=== PATIENT | male | born 2000 | race Caucasian/White ===

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

== ENCOUNTER 2019-08-04 12:37 | Emergency (ER) | payer OTHER ==
[2019-08-04 14:35] LABS: ABS Lymphocytes 1.2 10^3/ul (1.0-4.8); ABS Monocytes 0.7 10^3/ul (0-0.8); ABS Neutrophils 9.1 10^3/ul (1.5-7.7); Eosinophil % 0.3 %; Hematocrit 44 % (42-52); Hemoglobin 14.9 g/dL (14.0-18.0); Lymphocyte % 11.1 %; Mean Corpuscular HGB Conc 34 g/dL (31-36); Mean Corpuscular Hemoglobin 30 pg (27-31); Mean Corpuscular Volume 89 fL (80-94); Mean Platelet Volume 7.5 fL (7.4-10.4); Platelet Count 312 10^3/uL (150-450); Red Blood Count 4.94 10^6 /uL (4.18-5.48); Red Cell Distribution Width 13 % (10-15); White Blood Count 11.1 10^3/uL (3.5-10.8)
[2019-08-04 14:52] LABS: ALT 29 U/L (7-52); AST 28 U/L (13-39); Albumin 5.1 g/dL (3.2-5.2); Albumin/Globulin Ratio 1.8 (1-3); Alkaline Phosphatase 89 U/L (34-104); Anion Gap 7 mmol/L (2-11); BUN/Creatinine Ratio 15.9 (8-20); Blood Urea Nitrogen 14 mg/dL (6-24); C Reactive Protein < 1.00 mg/L (<8.01); CO2 Carbon Dioxide 26 mmol/L (22-32); Calcium 10.2 mg/dL (8.6-10.3); Chloride 103 mmol/L (101-111); EGFR African American 133.6 (>60); EGFR Non-African American 110.4 (>60); Globulin 2.8 g/dL (2-4); Glucose 105 mg/dL (70-100); Potassium 4.1 mmol/L (3.5-5.0); Sodium 136 mmol/L (135-145); Total Protein 7.9 g/dL (6.4-8.9)
[2019-08-04] MEDS ORDERED: Ketorolac INJ* 30 MG/ML 1 ML VIAL IV PUSH ONE (14:52)
--- NOTE | 2019-08-04 14:52 | ED ---
Abdominal Pain/Male - HPI Summary HPI Summary: This patient is a 19 year old male presenting to [facility] with RLQ and umbilical abdominal pain. He reports nausea earlier but it has resolved. He describes the pain as sharp. He states it is intermittent every 10 minutes. He states eating had no effect on the pain. He states the pain feels a lot worse when he turns onto either of his sides. He rates his pain 7/10 in severity. He states he has never had abdominal surgery. The patient had Tylenol and Ibuprofen this morning. - History of Current Complaint Chief Complaint: EDAbdPain Stated Complaint: LOWER RIGHT ABD PAIN Time Seen by Provider: 08/04/19 14:44 Hx Obtained From: Patient Onset/Duration: Lasting Hours Pain Intensity: 7 Pain Scale Used: 0-10 Numeric Location: Discrete At: RLQ, Umbilical - Allergies/Home Medications Allergies/Adverse Reactions: Allergies Allergy/AdvReac Type Severity Reaction Status Date / Time No Known Allergies Allergy Verified 08/04/19 12:43 PMH/Surg Hx/FS Hx/Imm Hx Endocrine/Hematology History: Denies: Hx Diabetes Cardiovascular History: Denies: Hx Coronary Artery Disease Infectious Disease History: No Infectious Disease History: Denies: Traveled Outside the [place] in Last 30 Days - Family History Known Family History: Positive: Diabetes - Social History Alcohol Use: None Substance Use Type: Reports: None Smoking Status (MU): Never Smoked Tobacco Review of Systems Negative: Fever Positive: Abdominal Pain, Nausea All Other Systems Reviewed And Are Negative: Yes Physical Exam - Summary Physical Exam Summary: Appearance: The patient is well-nourished in no acute distress and in no acute pain. Skin: The skin is warm and dry and skin color reflects adequate perfusion. HEENT: The head is normocephalic and atraumatic. The pupils are equal and reactive. The conjunctivae are clear and without drainage. Nares are patent and without drainage. Mouth reveals moist mucous membranes and the throat is without erythema and exudate. The external ears are intact. The ear canals are patent and without drainage. The tympanic membranes are intact. Neck: The neck is supple with full range of motion and non-tender. There are no carotid bruits. There is no neck vein distension. Respiratory: Chest is non-tender. Lungs are clear to auscultation and breath sounds are symmetrical and equal. Cardiovascular: Heart is regular rate and rhythm. There is no murmur or rub auscultated. There is no peripheral edema and pulses are symmetrical and equal. Abdomen: The abdomen is soft and non-tender. There are normal bowel sounds heard in all four quadrants and there is no organomegaly palpated. There is mild distension, tympanitic. Musculoskeletal: There is no back tenderness noted. Extremities are non-tender with full range of motion. There is good capillary refill. There is no peripheral edema or calf tenderness elicited. Neurological: Patient is alert and oriented to person, place and time. The patient has symmetrical motor strength in all four extremities. Cranial nerves are grossly intact. Deep tendon reflexes are symmetrical and equal in all four extremities. Psychiatric: The patient has an appropriate affect and does not exhibit any anxiety or depression. Triage Information Reviewed: Yes Vital Signs On Initial Exam: Initial Vitals Temp Pulse Resp BP Pulse Ox 98.9 F 92 19 136/74 97 08/04/19 12:38 08/04/19 12:38 08/04/19 12:38 08/04/19 12:38 08/04/19 12:38 Vital Signs Reviewed: Yes Procedures - Sedation Patient Received Moderate/Deep Sedation with Procedure: No Diagnostics - Vital Signs Vital Signs Temp Pulse Resp BP Pulse Ox 08/04/19 14:23 98.9 F 71 16 108/78 100 08/04/19 12:38 98.9 F 92 19 136/74 97 - Laboratory Lab Results: Lab Results 08/04/19 Range/Units 14:26 WBC 11.1 H (3.5-10.8) 10^3/uL RBC 4.94 (4.18-5.48) 10^6 /uL Hgb 14.9 (14.0-18.0) g/dL Hct 44 (42-52) % MCV 89 (80-94) fL MCH 30 (27-31) pg MCHC 34 (31-36) g/dL RDW 13 (10-15) % Plt Count 312 (150-450) 10^3/uL MPV 7.5 (7.4-10.4) fL Neut % (Auto) 82.2 % Lymph % (Auto) 11.1 % Rosebud % (Auto) 6.0 % Eos % (Auto) 0.3 % Baso % (Auto) 0.4 % Absolute Neuts (auto) 9.1 H (1.5-7.7) 10^3/ul Absolute Lymphs (auto) 1.2 (1.0-4.8) 10^3/ul Absolute Monos (auto) 0.7 (0-0.8) 10^3/ul Absolute Eos (auto) 0.0 (0-0.6) 10^3/ul Absolute Basos (auto) 0.0 (0-0.2) 10^3/ul Absolute Nucleated RBC 0.0 10^3/ul Nucleated RBC % 0.0 Result Diagrams: 08/04/19 14:26 08/04/19 14:26 Lab Statement: Any lab studies that have been ordered have been reviewed, and results considered in the medical decision making process. - Radiology Abdomen XR Radiology Interpretation Completed By: Radiologist Summary of Radiographic Findings: Extensive gaseous distension of the colon without dilatation. Large amount of stool within the distal colon. ED Provider has reviewed this report. - CT Abd/Pel CT Interpretation Completed By: Radiologist Summary of CT Findings: There is diffuse gaseous distension of the colon with a large amount of stool in the distal colon. ED Provider has reviewed this report. Abdominal Pain Male Course/Dx - Course Course Of Treatment: Mr. Redman was found to be constipated with air in the colon. There is no sign of obstruction. Unfortunately had to get a CT scan as the plain film was equivocal. I recommended laxatives and we would try enemas if laxatives are not effective. He was sent home with mag citrate. - Diagnoses Provider Diagnoses: Constipation Discharge ED - Sign-Out/Discharge Documenting (check all that apply): Patient Departure - Discharge - Discharge Plan Condition: Stable Disposition: HOME Patient Education Materials: Constipation (ED) Referrals: Daquan Conde MD [Primary Care Provider] - Additional Instructions: Return to ED with new or worsening symptoms. - Billing Disposition and Condition Condition: STABLE Disposition: Home - Attestation Statements Document Initiated by Scribnette: Yes Documenting Scribe: Zhen Esparza Provider For Whom Goldie is Documenting (Include Credential): Rickie Ambrosio MD Scribe Attestation: Zhen Brown, scribed for Rickie Ambrosio MD on 08/04/19 at 1858. Scribe Documentation Reviewed: Yes Provider Attestation: The documentation as recorded by the Zhen hussein accurately reflects the service I personally performed and the decisions made by me, Rickie Ambrosio MD Status of Scribe Document: Viewed
[2019-08-04 15:16] LABS: Urine Appearance Clear; Urine Bilirubin Negative (Negative); Urine Blood Negative (Negative); Urine Color Yellow; Urine Glucose Negative (Negative); Urine Ketones Trace (Negative); Urine Nitrite Negative (Negative); Urine Protein Negative (Negative); Urine Specific Gravity 1.025 (1.010-1.030); Urine Urobilinogen Negative (Negative)
[2019-08-04] MEDS ORDERED: Magnesium CITRATE* 300 ML BTL PO ONE (18:25)
[2019-08-04 18:52] VITALS: BP 119/68
== END 2019-08-04 18:51 | disposition home or self-care (01) ==
LOC: ED 12:37
DX: K59.00 Constipation, unspecified (principal)
CPT/HCPCS: 36415; 74019; 74176; 80053; 81003; 83605; 83690; 85025; 86140; 96374; 99283; A9270-GY; J1885

== ENCOUNTER 2019-08-06 15:02 | Inpatient (IN) | payer OTHER ==
--- NOTE | 2019-08-06 16:35 | ED ---
Abdominal Pain/Male - HPI Summary HPI Summary: The patient is a 19-year-old male presenting to [facility] accompanied by parents with a chief complaint of abdominal pain and constipation since 08/02/2019. He reports that he has been experiencing diffuse abdominal cramping spasms over the last few days. His last BM was five days ago, and he did have a BM the day after but it was very scant diarrhea. He came to the ED and had a XR and CT both showing large gaseous distension of the colon. Since then, he has still been experiencing abdominal pain, nausea, vomiting, and decreased appetite. He denies any fevers. Symptoms currently rated 6/10 in severity. He was at his PCP s office yesterday, and they recommended treatment for constipation. He has been taking Miralax, Ducolax, and enemas to no relief. He has not seen GI yet, but Dr. Alejo told them that the patient needs to pass stool prior to being discharged today, but he likely needs an endoscopy. No previous experiences similar to this. No history of gastric motility disorders other than GERD. Past medical history significant for Aspergers syndrome. Nonsmoker, no EtOH, no substance use. Medications reviewed. Allergies noted. - History of Current Complaint Chief Complaint: EDAbdPain Stated Complaint: ABDOMINAL PAIN PER PT Time Seen by Provider: 08/06/19 16:06 Hx Obtained From: Patient Onset/Duration: Gradual Onset, Lasting Days, Still Present Timing: Constant Severity Initially: Mild Severity Currently: Moderate Pain Intensity: 6 Pain Scale Used: 0-10 Numeric Location: Diffuse Radiates: No Character: Cramping Aggravating Factor(s): Nothing Alleviating Factor(s): Nothing Associated Signs And Symptoms: Positive: Constipation, Decreased Appetite, Nausea, Vomiting, Diarrhea - one small episode. Negative: Fever - Allergies/Home Medications Allergies/Adverse Reactions: Allergies Allergy/AdvReac Type Severity Reaction Status Date / Time No Known Allergies Allergy Verified 08/04/19 12:43 PMH/Surg Hx/FS Hx/Imm Hx Endocrine/Hematology History: Denies: Hx Diabetes Cardiovascular History: Denies: Hx Coronary Artery Disease GI History: Reports: Hx Gastroesophageal Reflux Disease Sensory History: Reports: Hx Contacts or Glasses Opthamlomology History: Reports: Hx Contacts or Glasses Infectious Disease History: No Infectious Disease History: Denies: Traveled Outside the [place] in Last 30 Days - Family History Known Family History: Positive: Diabetes - Social History Alcohol Use: None Hx Substance Use: No Substance Use Type: Reports: None Hx Tobacco Use: No Smoking Status (MU): Never Smoked Tobacco Review of Systems Negative: Fever Positive: Abdominal Pain - diffuse cramping, spasms, Vomiting, Diarrhea - one small episode, Nausea, Other - constipation, decreased appetite All Other Systems Reviewed And Are Negative: Yes Physical Exam - Summary Physical Exam Summary: Constitutional: Well-developed, Well-nourished, Alert. (-) Distressed Skin: Warm, Dry HENT: Normocephalic; Atraumatic Eyes: Conjunctiva normal Neck: Musculoskeletal ROM normal neck. (-) JVD, (-) Stridor, (-) Tracheal deviation Cardio: Rhythm regular, rate normal, Heart sounds normal; Intact distal pulses; The pedal pulses are 2+ and symmetric. Radial pulses are 2+ and symmetric. (-) Murmur Pulmonary/Chest wall: Effort normal. (-) Respiratory distress, (-) Wheezes, (-) Rales Abd: Soft, (-) focal tenderness, (+) Distension, Firm, Tympanic (-) Guarding, (- ) Rebound Musculoskeletal: (-) Edema Lymph: (-) Cervical adenopathy Neuro: Alert, Oriented x3 Psych: Mood and affect Normal Rectal: Unable to remove stool on FLORA Triage Information Reviewed: Yes Vital Signs On Initial Exam: Initial Vitals Temp Pulse Resp BP Pulse Ox 98.5 F 107 18 142/94 97 08/06/19 15:09 08/06/19 15:09 08/06/19 15:09 08/06/19 15:09 08/06/19 15:09 Vital Signs Reviewed: Yes Procedures - Sedation Patient Received Moderate/Deep Sedation with Procedure: No Diagnostics - Vital Signs Vital Signs Temp Pulse Resp BP Pulse Ox 08/06/19 15:09 98.5 F 107 18 142/94 97 - Laboratory Result Diagrams: 08/07/19 07:41 08/07/19 07:41 Lab Statement: Any lab studies that have been ordered have been reviewed, and results considered in the medical decision making process. - Radiology Abd/KUB XR Radiology Interpretation Completed By: Radiologist Summary of Radiographic Findings: Impression: Marked distention of the colon slightly progressed from the prior study consider CT imaging for further evaluation. ED physician has reviewed this report. - CT Abd/Pel CT CT Interpretation Completed By: Radiologist Summary of CT Findings: Impression: 1. There is increased gaseous dilation of the distal esophagus. 2. As previously seen, there is significant gaseous distention of the colon with significant stool in the distal colon with stable collapsed appearance of the rectum raising suspicion for distal colonic obstruction at the level of the rectum. There appear to be redundant loops of colon. ED physician has reviewed this report. Re-Evaluation - Re-Evaluation First Eval Re-Evaluation Time: 18:30 Comment: Patient and family aware of plan for GI consult and admission. Abdominal Pain Male Course/Dx - Course Course Of Treatment: 19 y/o male presenting with diffuse abdominal cramping and spasms, constipation, nausea, vomiting, and decreased appetite worsening over the last five days. He had an abdominal XR and CT two days ago revealing had a XR and CT both showing large. Has not seen GI yet. Physical exam significant for abdominal distension, firmness, tympanic, no focal pain, no guarding. Unable to remove stool on FLORA. IV access obtained. Patient administered fluids Zofran, Morphine, and mag citrate. Blood work significant for elevated WBCs of 19.9, abs neuts of 17.1, abs monos of 1.8, sodium of 132, potassium of 3.2, chloride of 96, BUN of 32, glucose of 123, total bili of 2, AST of 63, ALT of 54, and lipase <10. UA is negative for infection. KUB XR reveals increased colonic distention from previous study. I spoke with Dr. Gorman from surgery, and he recommends a contrast enema and possible endoscopy. Abd/Pel CT with contrast reveals increased distal esophageal gaseous dilation and significant stool in distal colon likely consistent with distal colonic obstruction. I spoke with Dr. Alejo from GI, and she will come see the patient in the ED to perform a flex sig. Dr. Weber accepts the patient for admission to medicine. Patient and family understand and agree with plan. - Diagnoses Provider Diagnoses: Obstruction of descending colon - Provider Notifications Discussed Care Of Patient With: Eva Alejo - GI Time Discussed With Above Provider: 18:00 Instructed by Provider To: Other - I discussed the patient's case with Dr. Gorman, and he recommends speaking with GI for possible endoscopy prior to surgical admit. Dr. Alejo from GI will perform a flex sig on the patient in the ED. Dr. Weber from the hospitalist services accepts patient for admission [[id number]]. Discharge ED - Sign-Out/Discharge Documenting (check all that apply): Patient Departure - Patient accepted for admission by Dr. Weber. - Discharge Plan Condition: Stable Disposition: ADMITTED TO [facility] - Billing Disposition and Condition Condition: STABLE Disposition: Admitted to [facility] - Attestation Statements Document Initiated by Goldie: Yes Documenting Scribe: Gwen Jackson Provider For Whom Goldie is Documenting (Include Credential): Dr. Giacomo Horton DO Scribe Attestation: Gwen Brown scribed for Dr. Giacomo Horton DO on 08/07/19 at 1115. Scribe Documentation Reviewed: Yes Provider Attestation: The documentation as recorded by the Gwen hussein accurately reflects the service I personally performed and the decisions made by me, Dr. Giacomo Horton DO Status of Scribnette Document: Viewed
[2019-08-06] MEDS ORDERED: NS 0.9% 1000 ML** 1,000 ML IV ONE ×2 (16:43→20:26)
[2019-08-06] MEDS ORDERED: Magnesium CITRATE* 300 ML BTL PO ONE (16:43)
[2019-08-06 17:06] LABS: Hematocrit 40 % (42-52); Hemoglobin 14.1 g/dL (14.0-18.0); Mean Corpuscular HGB Conc 35 g/dL (31-36); Mean Corpuscular Hemoglobin 31 pg (27-31); Mean Corpuscular Volume 87 fL (80-94); Mean Platelet Volume 7.7 fL (7.4-10.4); Platelet Count 325 10^3/uL (150-450); Red Blood Count 4.61 10^6 /uL (4.18-5.48); Red Cell Distribution Width 13 % (10-15); White Blood Count 19.9 10^3/uL (3.5-10.8)
[2019-08-06] MEDS ORDERED: Morphine 4 MG/ML VIAL (1 ml) 4 MG/ML VIAL IV ONE ×2 (17:13→20:25)
[2019-08-06] MEDS ORDERED: Ondansetron INJ* 2 MG/ML VIAL IV ONE (17:13)
[2019-08-06 17:16] LABS: Urine Appearance Cloudy; Urine Bilirubin Negative (Negative); Urine Blood Negative (Negative); Urine Color Yellow; Urine Glucose Negative (Negative); Urine Ketones Negative (Negative); Urine Nitrite Negative (Negative); Urine Protein Negative (Negative); Urine Specific Gravity 1.024 (1.010-1.030); Urine Urobilinogen Negative (Negative)
[2019-08-06 17:26] LABS: ALT 54 U/L (7-52); AST 63 U/L (13-39); Albumin 5.1 g/dL (3.2-5.2); Albumin/Globulin Ratio 1.8 (1-3); Alkaline Phosphatase 77 U/L (34-104); Anion Gap 10 mmol/L (2-11); BUN/Creatinine Ratio 30.5 (8-20); Blood Urea Nitrogen 32 mg/dL (6-24); CO2 Carbon Dioxide 26 mmol/L (22-32); Calcium 10.1 mg/dL (8.6-10.3); Chloride 96 mmol/L (101-111); Globulin 2.8 g/dL (2-4); Glucose 123 mg/dL (70-100); Magnesium 2.1 mg/dL (1.9-2.7); Potassium 3.2 mmol/L (3.5-5.0); Sodium 132 mmol/L (135-145); Total Protein 7.9 g/dL (6.4-8.9)
[2019-08-06 18:00] LABS: ABS Lymphocytes 0.9 10^3/ul (1.0-4.8); ABS Monocytes 1.8 10^3/ul (0-0.8); ABS Neutrophils 17.1 10^3/ul (1.5-7.7); Lymphocyte % 4.4 %
[2019-08-06] MEDS ORDERED: Iohexol 300* (CONTRAST) 10 ML SDV IV ONE (19:17)
--- NOTE | 2019-08-06 20:05 | CONS ---
CC: Dr. Daquan Conde; Dr. Eva Alejo * CONSULTATION REPORT: DATE OF CONSULT: 08/06/19 REFERRING PHYSICIAN: Dr. Horton in the emergency room. CHIEF COMPLAINT: Abdominal pain. HISTORY OF PRESENT ILLNESS: This is a 19-year-old male with Asperger syndrome. The history is provided by the patient's parents who accompanied him. He has a history of gastroesophageal reflux disease and is a patient of Dr. Alejo. He presented to the emergency room for the second time in 2 days with abdominal pain and constipation, which has been ongoing since 08/02/19 for less than a week. He previously has a history of regular bowel movements and no history of constipation. He is reported to have had the last bowel movement 5 days ago and was seen in the emergency room on 08/04/19 because of severe pain, had an evaluation with demonstration of a large amount of stool in the distal colon and rectum on both x- ray and CT. He was discharged home with magnesium citrate and has been managed at home with enemas, Dulcolax suppositories and was going to follow up with Dr. Mary Ann Gonzalez. However, he began to have more severe abdominal pain and distention, and was instructed by Dr. Alejo to go to the emergency room. PAST MEDICAL HISTORY: Significant for the above mentioned illnesses, otherwise is negative. PAST SURGICAL HISTORY: Unremarkable. He has had upper endoscopy in the past. MEDICATIONS: 1. Loratadine. 2. Laxatives. ALLERGIES: None known. SOCIAL HISTORY: Lives with parents. No smoking, alcohol, or drug use. PHYSICAL EXAM: He is afebrile, temperature 98.5, pulse was 82, respiratory rate of 14, blood pressure 148/91, and O2 sat 95% on room air. General: He is a thin well- developed, well-nourished 19-year-old male, lying in the emergency room stretcher, sleeping but occasionally awakens with grasping of his abdomen in a colicky fashion. Head is normocephalic and atraumatic. Sclerae anicteric. Mucous membranes are moist. His lungs are clear to auscultation bilaterally. Heart is regular. His abdomen is massively distended. No scars. Bowel sounds are present. There is some high pitched bowel sounds. There is no tenderness. Extremities are warm. The rectal examination was performed by the emergency room staff. By report, there was no stool palpated. DIAGNOSTIC STUDIES/LAB DATA: WBCs were 19.9, hemoglobin 14.1, platelets were 325. Urinalysis was negative. Imaging of the abdomen with plain films from 08/04/19 and from 08/06/19 revealed massively dilated large bowel. On the 08/06/19 films, there does not appear to be any stool in the distal colon and rectum while there is that finding on the plain films of 08/04/19. CT images from 08/04/19 were also reviewed and findings as reported above. IMPRESSION: A 19-year-old male with severe constipation, new onset. Does not appear to have a surgical abdomen. Possible etiologies are functional or mechanical blockage of the large intestine. PLAN/RECOMMENDATIONS: I discussed the findings with the patient's family as well as Dr. Horton in the emergency room. My recommendation is for contrast enema to rule out mechanical cause for obstruction in the large bowel. If that is negative, then GI endoscopy to further assess. [facility] will follow with you. [id number]/[facility] #: [id number] [place]IE[place]
--- NOTE | 2019-08-06 20:57 | CONS ---
CC: Dr. Eva Alejo; Dr. Daquan Conde CONSULTATION REPORT: DATE OF CONSULT: 08/06/19 REASON FOR CONSULT: Abdominal distention, abdominal pain. REQUESTING PHYSICIAN: Dr. Horton. HISTORY OF PRESENT ILLNESS: This is a pleasant 19-year-old male with past medical history of acid reflux disease and globus sensation, who is followed by our group by Dr. Eva Alejo, who presented to the emergency room with worsening abdominal pain. He was initially seen in the ER on 08/04/19 with right lower quadrant and an umbilical abdominal pain that was associated with nausea. It started quite suddenly on Monday with increased abdominal distention , pain, and initially difficulty moving bowels. No black in the stool but he said he did have some scant blood today. He had a CAT scan done in the ER on 08/04/19, that showed a large stool burden. This was done without contrast. He is recommended to have a bowel regimen and discharged after feeling better. After getting home, he tried multiple bowel modalities including magnesium citrate and some suppositories, this did not yield good effect. For the last 2 or 3 days, he has had very limited flatus and no significant bowel movements on Monday. His abdominal distention was worsening today and he presented to the emergency room with worsening of his symptoms. Today, he states the pain is 10/10, associated with occasional chills. Denies any black in the stool. He states he had may be a little bit of flatus earlier today, but not much at all. Admits to abdominal distention and bloating along with the abdominal pain. No new medications were started. The remainder of the 14-point review of systems is grossly negative except for as described in the HPI. PAST MEDICAL HISTORY: GERD, globus sensation, asthma, and eczema. PAST SURGICAL HISTORY: Tooth extraction. HOME MEDICATIONS: Include: 1. Omeprazole. 2. Loratadine along with recent bowel regimen. ALLERGIES: No known drug allergies. FAMILY HISTORY: No family history of GI malignancy or inflammatory bowel disease. SOCIAL HISTORY: Nonsmoker, no alcohol use. Parents at bedside. REVIEW OF SYSTEMS: Remainder of the 14-point review of systems was grossly negative except for as described in the HPI. PHYSICAL EXAM: Vital Signs: Blood pressure 148/91, pulse 105, temperature 98.5 , respiratory rate is 18. In general, acutely ill appearing, holding abdomen, alert. HEENT: Atraumatic, normocephalic. Pupils equal, round, and reactive to light. Extraocular movements intact. Conjunctivae are pink. Sclerae anicteric. Cardiovascular: Tachycardic, S1, S2. Respiratory: Clear to auscultation bilaterally. Abdomen: Firm, distended. Bowel sounds hypoactive. No rebound but does have guarding. Extremities: No clubbing, no cyanosis, no edema. DIAGNOSTIC STUDIES/LAB DATA: Hemoglobin 14.1, WBC count 19.9. Sodium 132, potassium 3.2, chloride 96, BUN is 32, creatinine 1.05. Bilirubin 2, AST is 63 , ALT is 54. CRP is 1.8. Lipase is less than 10. Lactic acid is 1.3. X-ray data: Had abdominal x-ray that showed a cecum of 13.5 cm with markedly distended colon, limited stool. IMPRESSION AND PLAN: This is a 19-year-old male with abdominal distention significant and increased from prior CT. Abdominal distention, need to rule out acute abdomen. CT of the abdomen and pelvis pending. Potential etiologies include obstruction along with colonic volvulus along with [place] syndrome. Depending on results of CAT scan may need decompressive colonoscopy if this is a colonic volvulus. Await results of CT for further management. Addendum: CT with possible obstruction near rectum. Discussed case with Dr. Gorman. Story is suspicious for volvulus of this area, options include contrast enema or flex sig attempt without significant insufflation. Given acuity and concern for volvulus will plan on flex sig to evaluate with possible rectal tube placement. [id number]/[facility] #: [id number] [facility]
[2019-08-06] MEDS ORDERED: fentaNYL* 50 MCG/ML 2 ML VIAL (100 MCG VIAL) ONE (21:34)
[2019-08-06] MEDS ORDERED: Midazolam* 1 MG/ML 10 ML VIAL (10 MG) ONE (21:35)
--- NOTE | 2019-08-06 22:45 | PN ---
Progress Note - Progress Note Date of Service: 08/06/19 Note: GI Brief Flex sig note Flex sig to 60cm Prep: unprepped procedure done with little to no CO2 insufflation. water used. rectum mild erythma. at 20cm 1st torsion encountered. slight dusky appearance but overall still pink With much difficulty was able to pass peds colonoscopy past to a cavernous sig/ descend Lots of debris. clogged scope repeatable. All air removed and immediately noticed abdominal distention improved. advanced to 60cm, unable to go beyond too much stool/debris. If volvulus was not able to find second torsion 14f rectal decompression tube placed via guide wire and taped. Impression: Probable Volvulus Rec: NPO, Serial abdominal exams Discussed with Dr. Gorman and likely will need surgical therapy in future Kartik Salvatore DO 08/06/19 [id number]
[2019-08-06] MEDS ORDERED: NS 0.9% 1000 ML** 1,000 ML IV SCH (23:30)
--- NOTE | 2019-08-07 01:26 | HP ---
CC: Dr. Daquan Conde * ADMISSION HISTORY AND PHYSICAL: DATE OF ADMISSION: 08/06/19 CHIEF COMPLAINT: Abdominal distention and abdominal pain. HISTORY OF PRESENT ILLNESS: This is a 19-year-old male with past medical history of acid reflux, globus sensation, asthma, eczema who came into the ER due to worsening abdominal pain. His initial abdominal pain was on 08/04/19, two days ago at the right lower quadrant and an umbilical abdominal pain associated with nausea. It started quite suddenly on Monday with increasing abdominal distention with decreased difficulty with bowel movements. He had a CAT scan that showed large amount of stool but no obvious obstruction. He was given multiple bowel regimen including magnesium citrate and suppositories and subsequently sent home. However, even after reaching home, he continues to have no significant bowel movements and decreased amount of gas and worsening pain, so he decided to come to the ER for reevaluation. On repeat CAT scan today, there was suspicion for colonic obstruction at the level of the rectum, so both surgical team and GI evaluated the patient and the patient underwent an urgent flexible sigmoidoscopy. During my evaluation, the patient already had the flexible sigmoidoscopy and he was sedated for post procedure. So, history was obtained by reviewing the records and talking to the father who was present at bedside. PAST MEDICAL HISTORY: As mentioned, gastroesophageal reflux disease, Asperger's , globus sensation, asthma, eczema. PAST SURGICAL HISTORY: Include tooth extraction and he also had a history of EGD done 2 years ago for his gastroesophageal reflux disease. HOME MEDICATIONS: Only taking loratadine 10 mg oral daily. ALLERGIES: No known drug allergies. FAMILY HISTORY: There is no family history of any GI or bowel disease. Both father and mother are otherwise healthy according to the father. SOCIAL HISTORY: The patient does have Asperger's and has recently graduated school and now is taking some courses at [employer]. There is no history of alcohol, drugs or any smoking according to the father. REVIEW OF SYSTEMS: A 14-point review of systems did not reveal any information other than what is mentioned in the HPI. PHYSICAL EXAMINATION VITAL SIGNS: In ER, temperature was recorded at 98.5, blood pressure 117/64, heart rate 74, respiration rate , saturating 98% on 2 L of nasal cannula along with end-tidal CO2 measuring at 40 on the monitor. HEAD AND NECK: Atraumatic, normocephalic. Bilateral pupils reactive. Oral mucosa was moist. Neck supple. No jugular venous distention. LUNGS: Clear to auscultation bilaterally. No wheezing, rhonchi or rales. HEART: S1, S2. Regular rate and rhythm. ABDOMEN: Minimally distended but still soft according to the GI doctor who evaluated the patient just before me. The distention has overall improved after the flexible sigmoidoscopy. DIAGNOSTIC STUDIES/LAB DATA: CBC shows elevated white count of 98.9, hemoglobin and hematocrit stable, platelet count was stable. Comprehensive metabolic panel shows sodium of 132, potassium of 3.2, chloride 96, BUN elevated at 32, creatinine 1.05. Random glucose was elevated at 123. Total bili elevated at 2.0, AST and ALT were minimally elevated. Lipase was noted to be less than 10. Lactic acid was normal. Urinalysis was negative for any leukocyte esterase or nitrite, it was cloudy appearing. Abdominal x-ray shows marked distention of the colon, slightly progressed from the prior study, consider CT imaging for further evaluation. Abdominal CT shows there is increased gaseous dilation of distal esophagus and of the colon. Significant amount of stool in the distal colon with stable collapsed appearance of rectum raising suspicion for distal colonic obstruction at the level of rectum. There appeared to be redundant looks of colon. Findings of the flexible sigmoidoscopy performed in the ER showed probable volvulus with lots of debris and clots, scoped repeatedly, most of the air was removed with improvement in the abdomen since distention. IMPRESSION: This is a 19-year-old gentleman with Asperger's and globus sensation and acid reflux disease, comes in due to abdominal pain for the last 2 days, noted to have colonic obstruction likely due to volvulus but unable to reduce by GI. ASSESSMENT AND PLAN: 1. Abdominal pain secondary to colonic obstruction probably from volvulus, status post flexible sigmoidoscopy. GI suggested a surgical evaluation in the morning for correction of his possible volvulus that he noted in the sigmoidoscopy. In the meantime, we will keep the patient NPO and continue with IV hydration. 2. Leukocytosis likely secondary to dehydration and distress, rather than any acute infection. We will monitor the patient's vital signs and consider antibiotics if necessary or if he develops any fever. I suspect once his hydration has improved, his overall leukocytosis should improve as well. 3. Electrolyte abnormalities: Hyponatremia and hypokalemia will be replaced with IV route. 4. DVT prophylaxis with sequential compression device. 5. Code status: Full code. [id number]/[facility] #: [id number] MTDD
[2019-08-07] MEDS: Lactated Ringers 1000 ML Bag* 1,000 ML IV SCH ×3 (02:24→22:50)
--- NOTE | 2019-08-07 04:24 | PRO ---
CC: Dr. Eva Alejo * FLEXIBLE SIGMOIDOSCOPY REPORT: DATE OF PROCEDURE: 08/06/19 - ROOM #353 PRIMARY BIOLOGY INTERN: Dr. Eva Alejo. INDICATION FOR PROCEDURE: Abnormal CAT scan, suspicion for volvulus. PROCEDURE PERFORMED: Flexible sigmoidoscopy to 60 cm with 14-Pakistani rectal tube placement and air decompression. DESCRIPTION OF PROCEDURE: After the flexible sigmoidoscopy procedure including the risks, benefits, and alternatives with the risks not limited to perforation , surgery, missed lesions, and/or were explained to the patient and his father, written informed consent was obtained from the father given prior pain medication administration to the patient. Next, a rectal exam was performed. The rectal exam was unremarkable. The pediatric Olympus colonoscope was inserted into the patient's rectum with CO2 insufflation as os. Water was used to inflate the area. There was mild erythema to the rectum but no distinct mass or lesion. At 20 cm, a swirl was noted, very tight, suspicious for volvulus. The area was slightly dusky around the tightest portion of the torsion; however , the mucosa was pink overall. With much difficulty, I was able to advance the pediatric colonoscope through the swirl into a very cavernous sigmoid and descending colon. The air was immediately suctioned out. Palpation of the abdomen revealed a soft abdomen at that point. I suctioned out what I could, but there was lot of debris, seeds, and stool clogging the area. Views were limited. I was able to advance to about 60 cm with multiple position changes to supine and left lateral, shifting the fluid pool. I was not, however, able to advance beyond that secondary to stool debris and prep. I was not able to find a second torsion if this was indeed a volvulus. Despite multiple position changes and trying to flip the sigmoid, I was unsuccessful at reducing the initial torsion at 20 cm. The decision was made to place a 14-Pakistani rectal tube via guidewire. This was inserted in standard technique and a corrugated rectal tube was placed successfully across the area at 20 cm in question into the cavernous sigmoid and beyond. The scope was then removed from the patient. He tolerated the procedure well. He remained in the ER in fair condition. IMPRESSION: 1. Likely sigmoid volvulus, status post decompression, flexible sigmoidoscopy. 2. A 14-Pakistani rectal tube placement. 3. Initial torsion found at 20 cm. 4. Mild rectal erythema. RECOMMENDATIONS: This is temporizing in nature, and I, unfortunately, was not able to fully de-torque the torsion at 20 cm despite multiple position changes and attempts. The rectal tube has resolved his initial distention, but will likely become clogged with seeds and debris in the near future. We will keep the patient n.p.o. I discussed the case with Dr. Gorman of the surgical team. He likely will need definitive surgical therapy in the near future. Would monitor with serial abdominal exams overnight and call surgical team if any worsening of clinical condition. [id number]/[facility] #: [id number] MTDD
[2019-08-07 07:48] LABS: Hematocrit 36 % (42-52); Hemoglobin 12.4 g/dL (14.0-18.0); Mean Corpuscular HGB Conc 35 g/dL (31-36); Mean Corpuscular Hemoglobin 30 pg (27-31); Mean Corpuscular Volume 88 fL (80-94); Mean Platelet Volume 7.4 fL (7.4-10.4); Platelet Count 240 10^3/uL (150-450); Red Blood Count 4.08 10^6 /uL (4.18-5.48); Red Cell Distribution Width 13 % (10-15); White Blood Count 13.4 10^3/uL (3.5-10.8)
[2019-08-07 07:50] LABS: ABS Lymphocytes 1.8 10^3/ul (1.0-4.8); ABS Monocytes 1.6 10^3/ul (0-0.8); Eosinophil % 0.3 %; Lymphocyte % 13.6 %
[2019-08-07 08:05] LABS: BUN/Creatinine Ratio 29.5 (8-20); Calcium 8.7 mg/dL (8.6-10.3); EGFR African American 122.3 (>60); EGFR Non-African American 101.1 (>60); Potassium 3.6 mmol/L (3.5-5.0)
[2019-08-07] MEDS ORDERED: Morphine INJ* 2 MG/ML 1 ML SYRINGE (TWO MG - NEW SYRINGE VERSION) IV PRN (08:20)
[2019-08-07] MEDS: Ondansetron INJ* 2 MG/ML VIAL IV PRN (08:52)
[2019-08-07] MEDS ORDERED: Buffered Lidocaine 1% SYRIN* 1 ML/SYRINGE INTRADERM ONE (10:36)
[2019-08-07] MEDS ORDERED: Famotidine IV* 10 MG/ML 2 ML (20 mg) IV ONE (10:36)
--- NOTE | 2019-08-07 10:47 | PN ---
Progress Note - Progress Note Date of Service: 08/07/19 SOAP: Subjective: He is comfortable today-still with abdominal distension but less pain No N/V Mother present at the bedside Objective: Temp Pulse Resp BP Pulse Ox 99 F 72 14 103/40 100 08/07/19 08:29 08/07/19 08:29 08/07/19 10:00 08/07/19 08:29 08/07/19 08:29 PEX: Comfortable Lungs are clear Abd is firm and distended. Tympanitic throughout. Bowel sounds are present and are high pitched. Mild distension tenderness throughout but no rebound or peritoneal irritation noted. Laboratory Results - last 24 hr 08/06/19 08/06/19 08/06/19 16:49 16:49 16:49 WBC 19.9 H RBC 4.61 Hgb 14.1 Hct 40 L MCV 87 MCH 31 MCHC 35 RDW 13 Plt Count 325 MPV 7.7 Neut % (Auto) 86.2 Lymph % (Auto) 4.4 [place]atte % (Auto) 9.3 Eos % (Auto) 0.0 Baso % (Auto) 0.1 Absolute Neuts (auto) 17.1 H Absolute Lymphs (auto) 0.9 L Absolute Monos (auto) 1.8 H Absolute Eos (auto) 0.0 Absolute Basos (auto) 0.0 Absolute Nucleated RBC 0.0 Nucleated RBC % 0.0 Sodium 132 L Potassium 3.2 L Chloride 96 L Carbon Dioxide 26 Anion Gap 10 BUN 32 H Creatinine 1.05 Est GFR ( Amer) 109.0 Est GFR (Non-Af Amer) 90.0 BUN/Creatinine Ratio 30.5 H Glucose 123 H Lactic Acid Calcium 10.1 Magnesium 2.1 Total Bilirubin 2.00 H AST 63 H ALT 54 H Alkaline Phosphatase 77 C-Reactive Protein 1.80 Total Protein 7.9 Albumin 5.1 Globulin 2.8 Albumin/Globulin Ratio 1.8 Lipase < 10 L Urine Color Yellow Urine Appearance Cloudy Urine pH 6.0 Ur Specific [place] 1.024 Urine Protein Negative Urine Ketones Negative Urine Blood Negative Urine Nitrate Negative Urine Bilirubin Negative Urine Urobilinogen Negative Ur Leukocyte Esterase Negative Urine Glucose Negative 08/06/19 08/07/19 08/07/19 16:49 07:41 07:41 WBC 13.4 H RBC 4.08 L Hgb 12.4 L Hct 36 L MCV 88 MCH 30 MCHC 35 RDW 13 Plt Count 240 MPV 7.4 Neut % (Auto) 74.3 Lymph % (Auto) 13.6 [place]atte % (Auto) 11.6 Eos % (Auto) 0.3 Baso % (Auto) 0.2 Absolute Neuts (auto) 10.0 H Absolute Lymphs (auto) 1.8 Absolute Monos (auto) 1.6 H Absolute Eos (auto) 0.0 Absolute Basos (auto) 0.0 Absolute Nucleated RBC 0.0 Nucleated RBC % 0.0 Sodium 135 Potassium 3.6 Chloride 103 Carbon Dioxide 27 Anion Gap 5 BUN 28 H Creatinine 0.95 Est GFR ( Amer) 122.3 Est GFR (Non-Af Amer) 101.1 BUN/Creatinine Ratio 29.5 H Glucose 85 Lactic Acid 1.3 Calcium 8.7 Magnesium Total Bilirubin AST ALT Alkaline Phosphatase C-Reactive Protein Total Protein Albumin Globulin Albumin/Globulin Ratio Lipase Urine Color Urine Appearance Urine pH Ur Specific [place] Urine Protein Urine Ketones Urine Blood Urine Nitrate Urine Bilirubin Urine Urobilinogen Ur Leukocyte Esterase Urine Glucose Assessment: Sigmoid volvulus as noted on flexible sigmoidoscopy by Dr. Chase. I discussed findings with him--he does not feel that he was able to adequately/completely reduce the volvulus at its distal point, but he did release a large amount of air but there is considerable amount of stool and fluid in more proximal sigmoid and descending colon making further visualization impossible. A rectal tube has been left in overnight. He feels better and his abdomen is less distended than last night and he had a bowel movement this morning. I had a long discussion with the patient and his mother this morning. Volvulus pathology and management were discussed at length. Options include sigmoid colon resection with colostomy or resection with anastomosis and diverting ileostomy. I do not believe that attempts at a bowel lavage/prep will be successful with findings at endoscopy and plan will be to take to operating room today for resection and performing one of the two options above depending on operative findings. I explained that any ostomy will be temporary and considerable judgement will be required as to which procedure is performed. The procedures were discussed at length, and the risks of, but not limited to, of bleeding, infection, abscess, anastomotic leak, injury to peritoneal and retroperitoneal structures, blood clots, and anesthesia were all explained. Plan: Exploratory laparotomy with sigmoid colon resection, possible colostomy, possible ileostomy today.
[2019-08-07] MEDS ORDERED: Lactated Ringers 1000 ML Bag* 1,000 ML IV SCH (11:00)
[2019-08-07] MEDS ORDERED: ceFOXitin 2 GM IVPREMIX* 2 GM/50 ML BAG ONE (15:31)
[2019-08-07] MEDS ORDERED: Midazolam* 1 MG/ML 5 ML VIAL (5 MG) ONE (16:28)
--- NOTE | 2019-08-07 16:38 | PN ---
Subjective Date of Service: 08/07/19 Interval History: Pt found this afternoon laying comfortably in bed. Easily awakened. Pt and family state that his pain and nausea seem to be well controlled with IV medications. Awaiting surgery. C/o abdominal distention, did have 2 BMs this morning per his and his mother's report. Mother believes he has passed small amounts flatus since. States that he has felt SOB at times, pt states there may be a correlation with his abdominal distention, mom believes that this may be since he has not received his intranasal allergy medication. Denies any CP, headaches, lightheadedness, difficulty with urination, numbness/tingling. Objective Active Medications: Lactated Ringer's (Lactated Ringers 1000 Ml Bag*) 1,000 mls @ 150 mls/hr IV PER RATE CRISTIN Stop: 08/07/19 23:32 Last Admin: 08/07/19 09:55 Dose: 150 mls/hr Lactated Ringer's (Lactated Ringers 1000 Ml Bag*) 1,000 mls @ 125 mls/hr IV PER RATE [facility] Morphine Sulfate (Morphine Inj (Syringe))*) 2 mg IV Q2H PRN PRN Reason: PAIN - SEVERE Last Admin: 08/07/19 08:52 Dose: 2 mg Ondansetron HCl (Zofran Inj*) 4 mg IV Q4H PRN PRN Reason: NAUSEA Last Admin: 08/07/19 08:52 Dose: 4 mg Vital Signs - 8 hr 08/07/19 08/07/19 08/07/19 08:52 10:00 12:03 Temperature 97.8 F Pulse Rate 80 Respiratory 14 14 20 Rate Blood Pressure 116/53 (mmHg) O2 Sat by Pulse 95 Oximetry Oxygen Devices in Use Now: None Appearance: Laying in bed, NAD. Eyes: No Scleral Icterus Respiratory: Symmetrical Chest Expansion and Respiratory Effort, Clear to Auscultation Cardiovascular: RRR Abdominal: - - Hypoactive BS, distended. Extremities: No Edema Neurological: Alert and Oriented x 3 Nutrition: - - NPO, IVF Result Diagrams: 08/08/19 06:18 08/08/19 06:18 Assess/Plan/Problems-Billing Assessment: is a 19yo male with PMHx significant for Asperger's, globus sensation , asthma, eczema, GERD. After flex sigmoidoscopy with GI, pt had a surgical consult and is awaiting the OR later today with to repair what sounds like a probable volvulus. - Patient Problems (1) Abdominal pain Current Visit: Yes Status: Acute Code(s): R10.9 - UNSPECIFIED ABDOMINAL PAIN SNOMED Code(s): 66351508 Comment: Colonic obstruction with probable volvulus after flex sigmoidoscopy. Surgical consult, plan is for surgical repair today with . - continue IV pain medication and anti-nausea medication PRN (2) Leukocytosis Current Visit: Yes Status: Acute Code(s): D72.829 - ELEVATED WHITE BLOOD CELL COUNT, UNSPECIFIED SNOMED Code(s): 995780086 Comment: Improved from yesterday, 19.9 to 13.4. As mentioned previously may be in relation to bodily stress, does not meet any other SIRS criteria. Will continue to trend. Labs ordered for 08/08 (3) Anemia Current Visit: Yes Status: Acute Code(s): D64.9 - ANEMIA, UNSPECIFIED SNOMED Code(s): 379363462 Comment: H+H 12.4/36. This may be dilutional, pt did receive 2L of IVF while in ED as well as maintenance fluids since. Will continue to trend. -Labs ordered for 08/08 (4) Electrolyte abnormality Current Visit: Yes Status: Acute Code(s): E87.8 - OTH DISORDERS OF ELECTROLYTE AND FLUID BALANCE, NEC SNOMED Code(s): 306527960 Comment: Resolved, will continue to trend (5) Asthma Current Visit: Yes Status: Acute Code(s): J45.909 - UNSPECIFIED ASTHMA, UNCOMPLICATED SNOMED Code(s): 530046781 Comment: Pt has no signs of exacerbation at this time -Plan to resume usual medication (6) DVT prophylaxis Current Visit: Yes Status: Acute Code(s): Z29.9 - ENCOUNTER FOR PROPHYLACTIC MEASURES, UNSPECIFIED SNOMED Code(s): 123356914 Comment: SCDs Status and Disposition: Status: Guarded Disposition: Awaiting OR Attending: Toya Allred
[2019-08-07] MEDS ORDERED: fentaNYL* 50 MCG/ML 2 ML VIAL (100 MCG VIAL) ONE ×3 (16:51→17:26)
[2019-08-07] MEDS ORDERED: Rocuronium* 10 MG/ML VIAL ONE ×2 (16:51→17:26)
[2019-08-07] MEDS ORDERED: Sugammadex * 500 MG/5 ML VIAL IV PUSH ONE (17:26)
[2019-08-07] MEDS ORDERED: HYDROmorphone INJ* 0.5 MG/0.5 ML SYRINGE ONE (17:26)
[2019-08-07] MEDS ORDERED: Dexamethasone IV* 4 MG/ML 1 ML (4 MG) IV SLOW PU ONE (17:44)
[2019-08-07] MEDS ORDERED: Ketorolac INJ* 30 MG/ML 1 ML VIAL IV ONE (17:44)
[2019-08-07] MEDS ORDERED: DiMENhydriNATE IV* 50 MG/ML VIAL IV PUSH ONE (17:44)
[2019-08-07] MEDS ORDERED: Propofol* 10 MG/ML 20 ML BTL IV ONE (17:44)
[2019-08-07] MEDS ORDERED: Succinylcholine* 20 MG/ML 10 ML VIAL IV ONE (17:44)
[2019-08-07] MEDS ORDERED: Ondansetron INJ* 2 MG/ML VIAL IV ONE (17:44)
[2019-08-07] MEDS ORDERED: Bupivacaine 0.5%* 50 ML MDV VIAL ONE (18:39)
[2019-08-07] MEDS ORDERED: Propofol* 10 MG/ML 20 ML BTL ONE (18:44)
[2019-08-07] MEDS ORDERED: Naloxone* 0.4 MG/ML 1 ML VIAL IV PUSH PRN (18:51)
--- NOTE | 2019-08-07 18:56 | BRIEFOPN ---
Brief Operative/Procedure Note - Operation Details Pre-Op Diagnosis: sigmoid volvulus Post-Op Diagnosis: same Procedures: exploratory laparotomy; sigmoid colectomy; diverting loop ileostomy Surgeon(s)/Proceduralists: Karen. Assist: ZE Carlos Anesthesia: GET. Fluids: 1300 ml crystalloid Estimated Blood Loss: < 50 ml Findings: as above Specimen(s)/Culture(s) Description: sigmoid colon Complications: none
[2019-08-07] MEDS ORDERED: Naloxone* 0.4 MG/ML 1 ML VIAL IV PRN (19:10)
[2019-08-07] MEDS ORDERED: HYDROmorphone INJ1* 1 MG/ML SYRINGE IV PRN (19:10)
[2019-08-07] MEDS ORDERED: Acetaminophen IV 1GM/100ML * 1,000 MG/100 ML VIAL IVPB ONE (19:10)
[2019-08-07] MEDS ORDERED: DiMENhydriNATE IV* 50 MG/ML VIAL IV PUSH PRN (19:10)
[2019-08-07] MEDS ORDERED: Morphine PCA ADULT* 5 MG/ML 30 ML PCA SCH (19:30)
[2019-08-07] MEDS ORDERED: Acetaminophen IV 1GM/100ML * 100 ML ONE (19:43)
[2019-08-07] MEDS ORDERED: Acetaminophen TAB* 325 MG PO PRN (21:29)
[2019-08-07] MEDS: Ketorolac INJ* 30 MG/ML 1 ML VIAL IV PUSH SCH (22:44)
[2019-08-07] MEDS: ceFOXitin 2 GM IVPREMIX* 2 GM/50 ML BAG IVPB SCH (23:06)
--- NOTE | 2019-08-08 03:43 | OP ---
DATE OF OPERATION: 08/07/19 - ROOM #353 DATE OF : 89 SURGEON: Og Jones MD SCRAPER OPERATOR: ZE Dyer ANESTHESIOLOGIST: Dr. Meier. ANESTHESIA: General with local. PRE-OP DIAGNOSIS: Sigmoid volvulus. POST-OP DIAGNOSIS: Sigmoid volvulus. OPERATIVE PROCEDURE: Exploratory laparotomy with sigmoid resection with a diverting loop ileostomy. INDICATIONS: Mr. Esequiel Remdan is a 19-year-old gentleman who was admitted through the emergency room last night after presenting with complaints of abdominal pain for 4 or 5 days. He was seen in the emergency room several days ago, was felt to have stool impaction and has been treated with laxatives. However, the abdominal distention became worse as well as his discomfort. He was noted to have a leukocytosis and CT scan with concern for possible distal colonic obstruction. He underwent a flexible sigmoidoscopy last evening, was noted to have a volvulus at approximately 20 cm, which was not felt to be adequately reduced, but the more proximal colon was decompressed. He was admitted and he had multiple bowel movements over the course of the day. Discussion of surgical intervention to prevent further recurrence was discussed with the patient and both his parents. His pain was much improved and less distended over the course of the day, and initially we had planned to take him to the operating room for probable resection and possible colostomy as he was not able to adequately prepped; however, he did pass multiple bowel movements over the course of the day and further discussions were had with the patient and his family about postponing surgery and attempting a 1- to 2-day formal prep in an attempt to avoid ostomy. After a long discussion regarding the surgery, possible colostomy formation as well as ileostomy formation, the family and the patient decided and would like to proceed with surgery today with the understanding there may be an increased risk of a colostomy and the risks of the surgery and anesthesia were all discussed and clearly outlined in the preoperatively transcribed progress note. ESTIMATED BLOOD LOSS: 50 cc. IV FLUIDS: 1400 cc of crystalloid. URINE OUTPUT: 800 cc. SPECIMENS: Sigmoid colon. WOUND CLASSIFICATION: III. DRAINS: None. COMPLICATIONS: None. FINDINGS: The patient had a very redundant sigmoid colon with mesentery and serosa that were quite edematous but viable from recent volvulus. There was no noted site of volvulus/twist in the colon. Small amount of straw-colored fluid in the pelvis. The other portions of the bowel were unremarkable. DESCRIPTION OF PROCEDURE: Written informed consent was obtained, the abdomen was marked with an indelible ink and preoperative antibiotics were administered. The patient was taken to the operating room and placed in the supine position. Sequential compression devices and warming blanket were applied. General anesthesia was administered. Garnder catheter was inserted. Time-out verification was completed. A vertical incision was made just above the pubis, about two-thirds of the way up to the umbilicus. The peritoneal cavity was entered under direct vision without difficulty. There was a moderate amount of straw color with a red- tinged fluid, which was nonodorous and not purulent mainly in the lower pelvis, which was irrigated. We easily identified the sigmoid colon. This was quite redundant and it was delivered easily up into the field and approximately a 1.5 to 2 feet segment, which extended down into the rectum and also to the proximal descending colon where it became more fixed in the usual peritoneal attachments. The bowel was viable and I identified no one particular area of a twist or volvulus, but the bowel as well as the mesentery was quite edematous in this area, but it was all completely viable as well. I was able to visualize and palpate the transverse colon and the right colon. The right colon was not particularly distended and the cecum was normal and the appendix was also unremarkable. Terminal ileum was identified and I visualized most of the small bowel and this was all unremarkable and nondistended. At this point, decision was made to proceed with resection of the redundant sigmoid colon. Distally, in the sigmoid colon in an area where it was straight forward to pass the stapler, I used a GEORGE 80 blue load to divide the colon distally. Then, showed an area more proximally, which was the distal descending colon in anticipation of anastomosing the distal descending colon to the distal sigmoid colon/proximal rectum with little tension and divided this with the GEORGE stapler and the mesentery was taken with the hand-held LigaSure device. Specimen was sent in the formalin. I then decided to proceed with a [id number] anastomosis as the bowel was all viable and there were really no intraluminal contents and it was not particularly distended with the stool or fluid. A [id number]-[id number] anastomosis using the GEORGE 80 blue load was then fired with a common rent being closed with a TA 90 green load stapler. I oversewn these each staple line with interrupted silk inverting sutures. The mesenteric rent was closed with several interrupted 3-0 Vicryl sutures. The anastomosis was then placed back down into the left lower quadrant, upper pelvis where it sat nicely without tension or twisting. In light of the fact that the patient had not received a formal bowel prep, I made a decision to proceed with a diverting loop ileostomy. The terminal ileum was identified and approximately 4 inches proximal to the ileocecal valve, a spot was selected. A small rent was made in the right lower quadrant abdominal wall through the rectus muscle and the loop of small bowel was brought up with care to prevent this from twisting. All sponge, needle, and the instrument counts were then reported as correct. The midline fascia was closed with interrupted #1 Vicryl suture. The skin was approximated with a stapling device. I then matured the ileostomy to the skin by opening this in a transverse orientation. I then used a 16-Welsh red rubber catheter through the base of the mesentery to assure that the ileum would not pull back into the abdominal cavity. The ostomy was then matured with interrupted 3-0 Vicryl sutures and an ostomy appliance was applied. The patient tolerated the procedure well and was taken to the recovery room in stable condition. [id number]/[facility] #: [id number] DIEGO
[2019-08-08] MEDS: Ketorolac INJ* 30 MG/ML 1 ML VIAL IV PUSH SCH ×4 (04:11→21:38)
[2019-08-08] MEDS: ceFOXitin 2 GM IVPREMIX* 2 GM/50 ML BAG IVPB SCH ×3 (05:06→16:16)
[2019-08-08 06:28] LABS: ABS Lymphocytes 1.2 10^3/ul (1.0-4.8); ABS Monocytes 1.3 10^3/ul (0-0.8); ABS Neutrophils 9.8 10^3/ul (1.5-7.7); Hematocrit 37 % (42-52); Hemoglobin 12.4 g/dL (14.0-18.0); Lymphocyte % 9.4 %; Mean Corpuscular HGB Conc 34 g/dL (31-36); Mean Corpuscular Hemoglobin 30 pg (27-31); Mean Corpuscular Volume 89 fL (80-94); Mean Platelet Volume 7.4 fL (7.4-10.4); Platelet Count 226 10^3/uL (150-450); Red Blood Count 4.12 10^6 /uL (4.18-5.48); Red Cell Distribution Width 13 % (10-15); White Blood Count 12.3 10^3/uL (3.5-10.8)
[2019-08-08 06:47] LABS: BUN/Creatinine Ratio 27.3 (8-20); Calcium 8.2 mg/dL (8.6-10.3); EGFR African American 133.6 (>60); EGFR Non-African American 110.4 (>60); Potassium 3.8 mmol/L (3.5-5.0)
--- NOTE | 2019-08-08 07:54 | PN ---
Progress Note - Progress Note Date of Service: 08/08/19 SOAP: Subjective: Gas and bilious fluid in ileostomy bag overnight No N/V Pain adequately controlled Wants chambers catheter out Objective: Temp Pulse Resp BP Pulse Ox 98.0 F 91 16 109/49 97 08/08/19 03:02 08/08/19 03:02 08/08/19 07:00 08/08/19 03:02 08/08/19 07:00 Intake & Output 08/06/19 08/07/19 08/08/19 08/09/19 06:59 06:59 06:59 06:59 Intake Total 750 2024 Output Total 0 1140 Balance 750 885 Weight 126 lb Intake: IV Fluids 750 1915 LR 191 IVPB 110 ABX - CEFOXITIN 110 Oral 0 0 Output: Urine 0 425 Chambers 715 Ileostomy 0 Other: Date of Last Bowel 08/02/2019 Movement # Bowel Movements 1 1 Estimated Stool Amount Large Large PEX: Comfortable Lungs are clear Cor is RRR Abd is soft and slightly distended. Incision CDI-ostomy pink with bilious fluid in bag Laboratory Results - last 24 hr 08/07/19 08/08/19 08/08/19 07:41 06:18 06:18 WBC 12.3 H RBC 4.12 L Hgb 12.4 L Hct 37 L MCV 89 MCH 30 MCHC 34 RDW 13 Plt Count 226 MPV 7.4 Neut % (Auto) 80.2 Lymph % (Auto) 9.4 [place] % (Auto) 10.3 Eos % (Auto) 0.0 Baso % (Auto) 0.1 Absolute Neuts (auto) 9.8 H Absolute Lymphs (auto) 1.2 Absolute Monos (auto) 1.3 H Absolute Eos (auto) 0.0 Absolute Basos (auto) 0.0 Absolute Nucleated RBC 0.0 Nucleated RBC % 0.0 Sodium 135 138 Potassium 3.6 3.8 Chloride 103 103 Carbon Dioxide 27 29 Anion Gap 5 6 BUN 28 H 24 Creatinine 0.95 0.88 Est GFR ( Amer) 122.3 133.6 Est GFR (Non-Af Amer) 101.1 110.4 BUN/Creatinine Ratio 29.5 H 27.3 H Glucose 85 96 Calcium 8.7 8.2 L Assessment: POD#1 s/p sigmoid resection with 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
[2019-08-08] MEDS: Lactated Ringers 1000 ML Bag* 1,000 ML IV SCH ×2 (09:36→19:26)
[2019-08-08 09:43] LABS: Activated Partial Thrombo Time 30.1 seconds (26.0-38.0); INR 1.34 (0.82-1.09)
[2019-08-08] MEDS: Cetirizine* 10 MG TAB PO SCH (10:06)
[2019-08-08] MEDS: Calcium/Vitamin D TAB 250/125* TAB PO SCH (10:06)
[2019-08-08] MEDS: Famotidine IV* 10 MG/ML 2 ML (20 mg) IV SLOW PU SCH ×2 (10:07→21:48)
[2019-08-08] MEDS ORDERED: oxyCODONE TAB* 5 MG TAB PO PRN (11:01)
[2019-08-08 12:53] LABS: Albumin 3.5 g/dL (3.2-5.2); Indirect Bilirubin 1.7 mg/dL (0.3-1.0); Total Bilirubin 2.1 mg/dL (0.2-1.0)
[2019-08-08 12:59] LABS: Albumin/Globulin Ratio 1.8 (1-3); Total Protein 5.5 g/dL (6.4-8.9)
[2019-08-08] MEDS: Heparin VIAL(*) 5000 UNITS/ML VIAL (FIVE THOUSAND) SUBCUT SCH ×2 (14:20→21:48)
--- NOTE | 2019-08-08 15:27 | PN ---
Subjective Date of Service: 08/08/19 Interval History: Yesterday 08/07 with pt had exploratory laparotomy with sigmoid resection with a diverting loop ileostomy. He was found this afternoon laying in bed, in NAD. States that he has been having pain but seems to be tolerable with current medication regimen. [employer] had been discontinued earlier today. Denies any nausea. Denies feeling lightheaded, CP, SOB, N/V, numbness/tingling. Has been ambulating around unit. States plan for ostomy care will be to start teaching tomorrow with mother, pt does not appear interested at this time. Has been noticing flatus and stool in bag. Gardner catheter removed earlier today, pt seems anxious about urinating for the first time and was asking questions about what would happen if he was unable to urinate. Otherwise no other concerns or questions at this time from pt or his mother. Objective Active Medications: Acetaminophen (Tylenol Tab*) 650 mg PO Q4H PRN PRN Reason: PAIN - MILD, TEMP >100.5 Calcium/Vitamin D (Oscal D Tab 250/125*) 1 tab PO DAILY [facility] Last Admin: 08/08/19 10:06 Dose: 1 tab Cetirizine HCl (Zyrtec*) 10 mg PO DAILY [facility] Last Admin: 08/08/19 10:06 Dose: 10 mg Famotidine (Pepcid Iv*) 20 mg IV SLOW PU BID [facility] Last Admin: 08/08/19 10:07 Dose: 20 mg Heparin Sodium (Porcine) (Heparin Vial(*)) 5,000 units SUBCUT Q8HR [facility] Last Admin: 08/08/19 14:20 Dose: 5,000 units Hydromorphone HCl (Dilaudid Inj*) 0.5 mg IV SLOW PU Q4H PRN PRN Reason: PAIN - SEVERE Lactated Ringer's (Lactated Ringers 1000 Ml Bag*) 1,000 mls @ 125 mls/hr IV PER RATE [facility] Last Admin: 08/08/19 09:36 Dose: 125 mls/hr Cefoxitin Sodium (Mefoxin 2gm Ivpremix*) 2 gm in 50 mls @ 100 mls/hr IVPB Q6H [facility] Stop: 08/08/19 17:29 Last Admin: 08/08/19 11:39 Dose: 100 mls/hr Ketorolac Tromethamine (Toradol Inj*) 30 mg IV PUSH Q6H [facility] Stop: 08/09/19 16:01 Last Admin: 08/08/19 10:07 Dose: 30 mg Ketorolac Tromethamine (Toradol Inj*) 30 mg IV PUSH Q6H PRN PRN Reason: PAIN - MODERATE Stop: 08/12/19 22:00 Naloxone HCl (Narcan*) 0.08 mg IV PUSH .Q2MIN PRN PRN Reason: OVERSEDATION Ondansetron HCl (Zofran Inj*) 4 mg IV Q4H PRN PRN Reason: NAUSEA Last Admin: 08/07/19 08:52 Dose: 4 mg Oxycodone HCl (Roxycodone Tab*) 5 mg PO Q6H PRN PRN Reason: PAIN - MODERATE Vital Signs - 8 hr 08/08/19 08/08/19 08/08/19 07:49 09:15 11:22 Temperature 99.6 F Pulse Rate 68 Respiratory 16 16 16 Rate Blood Pressure 114/50 (mmHg) O2 Sat by Pulse 96 Oximetry 08/08/19 08/08/19 11:59 14:15 Temperature 100.1 F Pulse Rate 70 Respiratory 16 18 Rate Blood Pressure 114/50 (mmHg) O2 Sat by Pulse 98 Oximetry Oxygen Devices in Use Now: None Appearance: laying in bed, NAD Eyes: No Scleral Icterus Ears/Nose/Mouth/Throat: Mucous Membranes Moist Respiratory: Symmetrical Chest Expansion and Respiratory Effort, Clear to Auscultation Cardiovascular: RRR Abdominal: - - Abdomen flat, hyperactive BS throughout, tenderness around surgical area but soft and non tender to palpation to RUQ, and L quadrants. No hepatomegaly Extremities: No Edema Skin: - - other than surgical incisions, dry and intact Neurological: Alert and Oriented x 3 Nutrition: Taking PO's Result Diagrams: 08/08/19 06:18 08/08/19 06:18 Additional Lab and Data: Abnormal Lab Results 08/08/19 08/08/19 08/08/19 06:18 06:18 09:21 WBC 12.3 H RBC 4.12 L Hgb 12.4 L Hct 37 L MCV 89 MCH 30 MCHC 34 RDW 13 Plt Count 226 MPV 7.4 Neut % (Auto) 80.2 Lymph % (Auto) 9.4 [place] % (Auto) 10.3 Eos % (Auto) 0.0 Baso % (Auto) 0.1 Absolute Neuts (auto) 9.8 H Absolute Lymphs (auto) 1.2 Absolute Monos (auto) 1.3 H Absolute Eos (auto) 0.0 Absolute Basos (auto) 0.0 Absolute Nucleated RBC 0.0 Nucleated RBC % 0.0 INR (Anticoag Therapy) 1.34 H APTT 30.1 Sodium 138 Potassium 3.8 Chloride 103 Carbon Dioxide 29 Anion Gap 6 BUN 24 Creatinine 0.88 Est GFR ( Amer) 133.6 Est GFR (Non-Af Amer) 110.4 BUN/Creatinine Ratio 27.3 H Glucose 96 Calcium 8.2 L Total Bilirubin 2.10 H Direct Bilirubin 0.40 H Indirect Bilirubin 1.7 H AST 67 H ALT 38 Alkaline Phosphatase 56 Total Protein 5.5 L Albumin 3.5 Globulin 2.0 Albumin/Globulin Ratio 1.8 Assess/Plan/Problems-Billing Assessment: is a 19yo male with PMHx significant for Asperger's, globus sensation , asthma, eczema, GERD. After flex sigmoidoscopy with GI, pt had a surgical consult and went to OR on 08/07 to have a exploratory laparotomy with sigmoid resection with a diverting loop ileostomy with . Back to short stay surgical unit after surgery. - Patient Problems (1) Abdominal pain Current Visit: Yes Status: Acute Code(s): R10.9 - UNSPECIFIED ABDOMINAL PAIN SNOMED Code(s): 24802976 Comment: Colonic obstruction with probable volvulus after flex sigmoidoscopy. OR with for exploratory laparotomy with sigmoid resection with a diverting loop ileostomy on 08/07. - continue pain and anti-nausea medication PRN - per surgery - full liquid diet - per surgery - ostomy care and teaching - per surgery and nursing (2) Leukocytosis Current Visit: Yes Status: Acute Code(s): D72.829 - ELEVATED WHITE BLOOD CELL COUNT, UNSPECIFIED SNOMED Code(s): 055416837 Comment: Continues to improve. As mentioned previously may be in relation to physiologic stress. Will continue to trend. Labs ordered for 08/09 (3) Anemia Current Visit: Yes Status: Acute Code(s): D64.9 - ANEMIA, UNSPECIFIED SNOMED Code(s): 495926975 Comment: H+H 12.4/37, very similar to values from yesterday. As mentioned previously the initial drop may have been in relation to dilution from fluids and since the patient has also had a surgical procedure. Will continue to trend. -Labs ordered for 08/09 (4) Elevated liver enzymes Current Visit: Yes Status: Acute Code(s): R74.8 - ABNORMAL LEVELS OF OTHER SERUM ENZYMES SNOMED Code(s): 998122635 Comment: See above for values. Appears to be an acute finding when compared to normal values from prior ED visit on 08/04. No hepatomegaly noted during examination. Cause unclear at this time, may be in relation to acute physiologic process vs medication - liver panel ordered for 08/10, if remains elevated may consider RUQ US, if normalizes may f/u with PCP as outpatient (5) Electrolyte abnormality Current Visit: Yes Status: Acute Code(s): E87.8 - OTH DISORDERS OF ELECTROLYTE AND FLUID BALANCE, NEC SNOMED Code(s): 090075998 Comment: Resolved, but reasonable to trend at this time (6) Asthma Current Visit: Yes Status: Acute Code(s): J45.909 - UNSPECIFIED ASTHMA, UNCOMPLICATED SNOMED Code(s): 500596377 Comment: Pt has no signs of exacerbation at this time -Resume usual allergy medication (7) DVT prophylaxis Current Visit: Yes Status: Acute Code(s): Z29.9 - ENCOUNTER FOR PROPHYLACTIC MEASURES, UNSPECIFIED SNOMED Code(s): 219762026 Comment: sq heparin per surgery Status and Disposition: Status: Stable Disposition: [facility] Attending: Maria Padilla
[2019-08-08] MEDS: oxyCODONE TAB* 5 MG TAB PO PRN (19:26)
[2019-08-09] MEDS: Lactated Ringers 1000 ML Bag* 1,000 ML IV SCH (03:39)
[2019-08-09] MEDS: Ketorolac INJ* 30 MG/ML 1 ML VIAL IV PUSH SCH ×2 (03:39→09:21)
[2019-08-09] MEDS: oxyCODONE TAB* 5 MG TAB PO PRN ×2 (04:12→14:58)
[2019-08-09] MEDS: Heparin VIAL(*) 5000 UNITS/ML VIAL (FIVE THOUSAND) SUBCUT SCH ×3 (05:56→22:10)
[2019-08-09 06:41] LABS: ABS Eosinophils 0.2 10^3/ul (0-0.6); ABS Lymphocytes 2.4 10^3/ul (1.0-4.8); ABS Monocytes 0.9 10^3/ul (0-0.8); ABS Neutrophils 4.7 10^3/ul (1.5-7.7); Eosinophil % 1.9 %; Hematocrit 34 % (42-52); Hemoglobin 11.6 g/dL (14.0-18.0); Lymphocyte % 28.9 %; Mean Corpuscular HGB Conc 35 g/dL (31-36); Mean Corpuscular Hemoglobin 31 pg (27-31); Mean Corpuscular Volume 88 fL (80-94); Mean Platelet Volume 7.2 fL (7.4-10.4); Platelet Count 203 10^3/uL (150-450); Red Blood Count 3.79 10^6 /uL (4.18-5.48); Red Cell Distribution Width 13 % (10-15); White Blood Count 8.2 10^3/uL (3.5-10.8)
[2019-08-09 07:00] LABS: Calcium 7.9 mg/dL (8.6-10.3); Potassium 3.5 mmol/L (3.5-5.0)
[2019-08-09 07:05] LABS: BUN/Creatinine Ratio 20.5 (8-20); EGFR African American 133.6 (>60); EGFR Non-African American 110.4 (>60)
--- NOTE | 2019-08-09 07:58 | PN ---
Progress Note - Progress Note Date of Service: 08/09/19 Note: S: Denies pain, N/V, fever, chills. Tolerating full liquid diet well. Ambulating without issue. Ileostomy bag with gas and bilious fluid. Urinating without problem since chambers was removed. O: Vital Signs - 8 hr 08/09/19 08/09/19 08/09/19 03:36 04:12 06:27 Temperature 98.5 F Pulse Rate 64 Respiratory 16 16 16 Rate Blood Pressure 115/58 (mmHg) O2 Sat by Pulse 96 Oximetry Intake and Output Last 24 Hours 08/07/19 08/08/19 08/09/19 08/10/19 06:59 06:59 06:59 06:59 Intake Total 750 5 4915 Output Total 0 1140 1000 Balance 642 540 9946 Weight 126 lb Intake: IV Fluids 750 1915 2179 LR 1915 2179 IVPB 110 1346 ABX - CEFOXITIN 110 52 LR 1294 Oral 0 0 1390 Output: Urine 0 425 175 Chambers 715 Straight Cath 250 Ileostomy 0 575 Other: Estimated Void Medium Date of Last Bowel 08/02/2019 Movement # Bowel Movements 1 1 Estimated Stool Amount Large Large # Voids 2 Laboratory Last Values WBC 8.2 10^3/uL (3.5-10.8) 08/09/19 06:34 RBC 3.79 10^6 /uL (4.18-5.48) L 08/09/19 06:34 Hgb 11.6 g/dL (14.0-18.0) L 08/09/19 06:34 Hct 34 % (42-52) L 08/09/19 06:34 MCV 88 fL (80-94) 08/09/19 06:34 MCH 31 pg (27-31) 08/09/19 06:34 MCHC 35 g/dL (31-36) 08/09/19 06:34 RDW 13 % (10-15) 08/09/19 06:34 Plt Count 203 10^3/uL (150-450) 08/09/19 06:34 MPV 7.2 fL (7.4-10.4) L 08/09/19 06:34 Neut % (Auto) 57.9 % 08/09/19 06:34 Lymph % (Auto) 28.9 % 08/09/19 06:34 [place] % (Auto) 11.0 % 08/09/19 06:34 Eos % (Auto) 1.9 % 08/09/19 06:34 Baso % (Auto) 0.3 % 08/09/19 06:34 Absolute Neuts (auto) 4.7 10^3/ul (1.5-7.7) 08/09/19 06:34 Absolute Lymphs (auto) 2.4 10^3/ul (1.0-4.8) 08/09/19 06:34 Absolute Monos (auto) 0.9 10^3/ul (0-0.8) H 08/09/19 06:34 Absolute Eos (auto) 0.2 10^3/ul (0-0.6) 08/09/19 06:34 Absolute Basos (auto) 0.0 10^3/ul (0-0.2) 08/09/19 06:34 Absolute Nucleated RBC 0.0 10^3/ul 08/09/19 06:34 Nucleated RBC % 0.0 08/09/19 06:34 INR (Anticoag Therapy) 1.34 (0.82-1.09) H 08/08/19 09:21 APTT 30.1 seconds (26.0-38.0) 08/08/19 09:21 Sodium 138 mmol/L (135-145) 08/09/19 06:34 Potassium 3.5 mmol/L (3.5-5.0) 08/09/19 06:34 Chloride 106 mmol/L (101-111) 08/09/19 06:34 Carbon Dioxide 30 mmol/L (22-32) 08/09/19 06:34 Anion Gap 2 mmol/L (2-11) 08/09/19 06:34 BUN 18 mg/dL (6-24) 08/09/19 06:34 Creatinine 0.88 mg/dL (0.67-1.17) 08/09/19 06:34 Est GFR ( Amer) 133.6 (>60) 08/09/19 06:34 Est GFR (Non-Af Amer) 110.4 (>60) 08/09/19 06:34 BUN/Creatinine Ratio 20.5 (8-20) H 08/09/19 06:34 Glucose 97 mg/dL (70-100) 08/09/19 06:34 Lactic Acid 1.3 mmol/L (0.5-2.0) 08/06/19 16:49 Calcium 7.9 mg/dL (8.6-10.3) L 08/09/19 06:34 Magnesium 2.1 mg/dL (1.9-2.7) 08/06/19 16:49 Total Bilirubin 2.10 mg/dL (0.2-1.0) H 08/08/19 06:18 Direct Bilirubin 0.40 mg/dL (0.03-0.18) H 08/08/19 06:18 Indirect Bilirubin 1.7 mg/dL (0.3-1.0) H 08/08/19 06:18 AST 67 U/L (13-39) H 08/08/19 06:18 ALT 38 U/L (7-52) 08/08/19 06:18 Alkaline Phosphatase 56 U/L (34-104) 08/08/19 06:18 C-Reactive Protein 1.80 mg/L (<8.01) 08/06/19 16:49 Total Protein 5.5 g/dL (6.4-8.9) L 08/08/19 06:18 Albumin 3.5 g/dL (3.2-5.2) 08/08/19 06:18 Globulin 2.0 g/dL (2-4) 08/08/19 06:18 Albumin/Globulin Ratio 1.8 (1-3) 08/08/19 06:18 Lipase < 10 U/L (11.0-82.0) L 08/06/19 16:49 Urine Color Yellow 08/06/19 16:49 Urine Appearance Cloudy 08/06/19 16:49 Urine pH 6.0 (5-9) 08/06/19 16:49 Ur Specific [place] 1.024 (1.010-1.030) 08/06/19 16:49 Urine Protein Negative (Negative) 08/06/19 16:49 Urine Ketones Negative (Negative) 08/06/19 16:49 Urine Blood Negative (Negative) 08/06/19 16:49 Urine Nitrate Negative (Negative) 08/06/19 16:49 Urine Bilirubin Negative (Negative) 08/06/19 16:49 Urine Urobilinogen Negative (Negative) 08/06/19 16:49 Ur Leukocyte Esterase Negative (Negative) 08/06/19 16:49 Urine Glucose Negative (Negative) 08/06/19 16:49 PEX General: Alert, in NAD or discomfort Integumentary: No rashes, jaundice, petechia. HEENT: Oropharynx clear. PERRLA. Heart: RRR, no MRG. Lungs: CTAB. No WRR. ABD: BS present. Soft, nondistended. Mild jake-umbilical tenderness. Ileostomy bag with gas and bilious fluid. Incision site C/D/I. Extremities: Calves soft and nontender. No edema. Distal pulses intact bilaterally. Assessment and plan: 19 yo M POD#2 s/p sigmoid resection with diverting loop ileostomy, recovering appropriately and pain well controlled. Continue full liquid diet, PPI, subq heparin, ostomy care.
[2019-08-09] MEDS: Cetirizine* 10 MG TAB PO SCH (09:21)
[2019-08-09] MEDS: Famotidine IV* 10 MG/ML 2 ML (20 mg) IV SLOW PU SCH ×2 (09:21→20:53)
[2019-08-09] MEDS: Calcium/Vitamin D TAB 250/125* TAB PO SCH (09:21)
--- NOTE | 2019-08-09 12:47 | PN ---
Subjective Date of Service: 08/09/19 Interval History: Pt seen this morning, laying in bed, resting, NAD. C/o leakage from ostomy appliance into incisional dressing. States pain seems to be tolerable with current medication regimen. Denies nausea. Mom states that she has noticed continued flatus and stool however believes that it has slowed down since yesterday. Denies headache, CP, SOB, difficulty with urination. States he has been walking around unit. Objective Active Medications: Acetaminophen (Tylenol Tab*) 650 mg PO Q4H PRN PRN Reason: PAIN - MILD, TEMP >100.5 Calcium/Vitamin D (Oscal D Tab 250/125*) 1 tab PO DAILY [facility] Last Admin: 08/09/19 09:21 Dose: 1 tab Cetirizine HCl (Zyrtec*) 10 mg PO DAILY [facility] Last Admin: 08/09/19 09:21 Dose: 10 mg Famotidine (Pepcid Iv*) 20 mg IV SLOW PU BID [facility] Last Admin: 08/09/19 09:21 Dose: 20 mg Heparin Sodium (Porcine) (Heparin Vial(*)) 5,000 units SUBCUT Q8HR [facility] Last Admin: 08/09/19 05:56 Dose: 5,000 units Hydromorphone HCl (Dilaudid Inj*) 0.5 mg IV SLOW PU Q4H PRN PRN Reason: PAIN - SEVERE Ketorolac Tromethamine (Toradol Inj*) 30 mg IV PUSH Q6H PRN PRN Reason: PAIN - MODERATE Stop: 08/12/19 22:00 Naloxone HCl (Narcan*) 0.08 mg IV PUSH .Q2MIN PRN PRN Reason: OVERSEDATION Ondansetron HCl (Zofran Inj*) 4 mg IV Q4H PRN PRN Reason: NAUSEA Last Admin: 08/07/19 08:52 Dose: 4 mg Oxycodone HCl (Roxycodone Tab*) 5 mg PO Q6H PRN PRN Reason: PAIN - MODERATE Last Admin: 08/09/19 04:12 Dose: 5 mg Vital Signs - 8 hr 08/09/19 08/09/19 08/09/19 06:27 08:04 09:15 Temperature 99.3 F Pulse Rate 71 Respiratory 16 14 18 Rate Blood Pressure 106/57 (mmHg) O2 Sat by Pulse 97 Oximetry 08/09/19 11:46 Temperature 99 F Pulse Rate 60 Respiratory 12 Rate Blood Pressure 115/70 (mmHg) O2 Sat by Pulse 95 Oximetry Oxygen Devices in Use Now: None Appearance: laying in bed, NAD Eyes: No Scleral Icterus Ears/Nose/Mouth/Throat: Mucous Membranes Moist Neck: - - supple Respiratory: Symmetrical Chest Expansion and Respiratory Effort, Clear to Auscultation Cardiovascular: RRR Abdominal: No Hepatosplenomegaly, - - flat, BS throughout, soft, tenderness surrounding incision area but otherwise tolerates palpation well. stoma to RLQ pink and moist, small amount flatus and some liquid dark stool noted in appliance Extremities: No Edema Skin: - - ostomy RLQ abdomen, incision just medial to ostomy appliance. Skin otherwise appears intact Neurological: Alert and Oriented x 3 Nutrition: Taking PO's Result Diagrams: 08/09/19 06:34 08/09/19 06:34 Additional Lab and Data: Abnormal Lab Results 08/08/19 08/08/19 08/08/19 06:18 06:18 09:21 WBC 12.3 H RBC 4.12 L Hgb 12.4 L Hct 37 L MCV 89 MCH 30 MCHC 34 RDW 13 Plt Count 226 MPV 7.4 Neut % (Auto) 80.2 Lymph % (Auto) 9.4 [place] % (Auto) 10.3 Eos % (Auto) 0.0 Baso % (Auto) 0.1 Absolute Neuts (auto) 9.8 H Absolute Lymphs (auto) 1.2 Absolute Monos (auto) 1.3 H Absolute Eos (auto) 0.0 Absolute Basos (auto) 0.0 Absolute Nucleated RBC 0.0 Nucleated RBC % 0.0 INR (Anticoag Therapy) 1.34 H APTT 30.1 Sodium 138 Potassium 3.8 Chloride 103 Carbon Dioxide 29 Anion Gap 6 BUN 24 Creatinine 0.88 Est GFR ( Amer) 133.6 Est GFR (Non-Af Amer) 110.4 BUN/Creatinine Ratio 27.3 H Glucose 96 Calcium 8.2 L Total Bilirubin 2.10 H Direct Bilirubin 0.40 H Indirect Bilirubin 1.7 H AST 67 H ALT 38 Alkaline Phosphatase 56 Total Protein 5.5 L Albumin 3.5 Globulin 2.0 Albumin/Globulin Ratio 1.8 Abnormal Lab Results 08/08/19 08/09/19 08/09/19 06:18 06:34 06:34 WBC 8.2 RBC 3.79 L Hgb 11.6 L Hct 34 L MCV 88 MCH 31 MCHC 35 RDW 13 Plt Count 203 MPV 7.2 L Neut % (Auto) 57.9 Lymph % (Auto) 28.9 [place] % (Auto) 11.0 Eos % (Auto) 1.9 Baso % (Auto) 0.3 Absolute Neuts (auto) 4.7 Absolute Lymphs (auto) 2.4 Absolute Monos (auto) 0.9 H Absolute Eos (auto) 0.2 Absolute Basos (auto) 0.0 Absolute Nucleated RBC 0.0 Nucleated RBC % 0.0 Sodium 138 Potassium 3.5 Chloride 106 Carbon Dioxide 30 Anion Gap 2 BUN 18 Creatinine 0.88 Est GFR ( Amer) 133.6 Est GFR (Non-Af Amer) 110.4 BUN/Creatinine Ratio 20.5 H Glucose 97 Calcium 7.9 L Total Bilirubin 2.10 H Direct Bilirubin 0.40 H Indirect Bilirubin 1.7 H AST 67 H ALT 38 Alkaline Phosphatase 56 Total Protein 5.5 L Albumin 3.5 Globulin 2.0 Albumin/Globulin Ratio 1.8 Assess/Plan/Problems-Billing Assessment: is a 19yo male with PMHx significant for Asperger's, globus sensation , asthma, eczema, GERD. After flex sigmoidoscopy with GI was noted to have probable volvulus, pt had a surgical consult and went to OR on 08/07 to have a exploratory laparotomy with sigmoid resection with a diverting loop ileostomy with . Back to short stay surgical unit after surgery. - Patient Problems (1) Abdominal pain Current Visit: Yes Status: Acute Code(s): R10.9 - UNSPECIFIED ABDOMINAL PAIN SNOMED Code(s): 94451710 Comment: Colonic obstruction with probable volvulus after flex sigmoidoscopy. OR with for exploratory laparotomy with sigmoid resection with a diverting loop ileostomy on 08/07. Ostomy appears healthy, flatus and stool production noted. - continue pain and anti-nausea medication PRN - full liquid diet - per surgery - ostomy care and teaching - per surgery and nursing (2) Leukocytosis Current Visit: Yes Status: Acute Code(s): D72.829 - ELEVATED WHITE BLOOD CELL COUNT, UNSPECIFIED SNOMED Code(s): 694644264 Comment: Resolved. As mentioned previously may be in relation to physiologic stress and probable dehydration as evidenced per trended lab values. - continue to monitor patient (3) Anemia Current Visit: Yes Status: Acute Code(s): D64.9 - ANEMIA, UNSPECIFIED SNOMED Code(s): 030509000 Comment: H+H 11.6/34, minor drop from yesterday. As mentioned previously the initial drop may have been in relation to dilution from fluids has also since had a surgical procedure. Will continue to trend. -Labs ordered for 08/10 (4) Elevated liver enzymes Current Visit: Yes Status: Acute Code(s): R74.8 - ABNORMAL LEVELS OF OTHER SERUM ENZYMES SNOMED Code(s): 857732679 Comment: See above for values. Appears to be an acute finding when compared to normal values from prior ED visit on 08/04. No hepatomegaly or RUQ tenderness noted during examination. No jaundice. Cause unclear at this time, but improving. No acute concern for biliary obstruction or hepatic pathology. - liver panel ordered for 08/10, if remains elevated may consider RUQ US, if normalizes may f/u with PCP as outpatient (5) Asthma Current Visit: Yes Status: Acute Code(s): J45.909 - UNSPECIFIED ASTHMA, UNCOMPLICATED SNOMED Code(s): 622657857 Comment: Pt has no signs of exacerbation at this time -Resume usual allergy medication (6) DVT prophylaxis Current Visit: Yes Status: Acute Code(s): Z29.9 - ENCOUNTER FOR PROPHYLACTIC MEASURES, UNSPECIFIED SNOMED Code(s): 932123228 Comment: sq heparin per surgery Status and Disposition: Status: Stable Disposition: [facility] Attending: Sheela Larry
--- NOTE | 2019-08-09 15:35 | PN ---
Progress Note - Progress Note Date of Service: 08/09/19 SOAP: Subjective: Tolerating full liquids without N/V Still having trouble keeping seal on ostomy-leakage requiring stoma replacement Pain adequately controlled Objective: Temp Pulse Resp BP Pulse Ox 99 F 60 16 115/70 95 08/09/19 11:46 08/09/19 11:46 08/09/19 14:58 08/09/19 11:46 08/09/19 11:46 Intake & Output 08/07/19 08/08/19 08/09/19 08/10/19 06:59 06:59 06:59 06:59 Intake Total 750 5 4915 Output Total 0 1140 1000 200 Balance 556 494 8340 -200 Weight 126 lb Intake: IV Fluids 750 1915 2179 LR 1915 2179 IVPB 110 1346 ABX - CEFOXITIN 110 52 LR 1294 Oral 0 0 1390 Output: Urine 0 425 175 200 [place] 715 Straight Cath 250 Ileostomy 0 575 0 Other: Estimated Void Medium Date of Last Bowel 08/02/2019 Movement # Bowel Movements 1 1 Estimated Stool Amount Large Large Other Amount Description unmeasurable amount in ileostomy # Voids 2 PEX: Comfortable in chair Abd is soft and slightly distended. Incision CDI. Ostomy pink and edematous with bilious fluid in bag. Bowel sounds present--hyperactive labs noted Assessment: POD#2 s/p sigmoid colectomy with diverting loop ileostomy for sigmoid volvulus Plan: Advance to soft diet Carefully watch ileostomy output--I and O PPI and sub q heparin Ostomy care Discussed with pt and mother-if comfortable with ostomy care and taking adequate po, would be OK for discharge in next 24-48 hours.
[2019-08-09] MEDS: HYDROmorphone INJ* 0.5 MG/0.5 ML SYRINGE IV SLOW PU PRN (19:27)
[2019-08-09] MEDS: Ondansetron INJ* 2 MG/ML VIAL IV PRN (19:45)
[2019-08-09] MEDS: Ketorolac INJ* 30 MG/ML 1 ML VIAL IV PUSH PRN (22:07)
[2019-08-10] MEDS: Ondansetron INJ* 2 MG/ML VIAL IV PRN ×3 (02:50→17:29)
[2019-08-10] MEDS: Ketorolac INJ* 30 MG/ML 1 ML VIAL IV PUSH PRN ×3 (04:04→23:10)
[2019-08-10 05:49] LABS: Hematocrit 40 % (42-52); Hemoglobin 13.9 g/dL (14.0-18.0)
[2019-08-10 06:04] LABS: Albumin 3.9 g/dL (3.2-5.2); Calcium 9.3 mg/dL (8.6-10.3); Indirect Bilirubin 0.9 mg/dL (0.3-1.0); Potassium 4.2 mmol/L (3.5-5.0); Total Bilirubin 1.1 mg/dL (0.2-1.0)
[2019-08-10 06:10] LABS: Albumin/Globulin Ratio 1.5 (1-3); BUN/Creatinine Ratio 19.3 (8-20); EGFR African American 133.6 (>60); EGFR Non-African American 110.4 (>60); Globulin 2.6 g/dL (2-4); Total Protein 6.5 g/dL (6.4-8.9)
[2019-08-10] MEDS: Heparin VIAL(*) 5000 UNITS/ML VIAL (FIVE THOUSAND) SUBCUT SCH ×3 (06:33→22:09)
[2019-08-10] MEDS: Cetirizine* 10 MG TAB PO SCH (08:45)
[2019-08-10] MEDS: Calcium/Vitamin D TAB 250/125* TAB PO SCH (08:45)
[2019-08-10] MEDS: Famotidine IV* 10 MG/ML 2 ML (20 mg) IV SLOW PU SCH ×2 (09:10→20:49)
--- NOTE | 2019-08-10 10:02 | PN ---
Subjective Date of Service: 08/10/19 Interval History: Laying in bed, appears mildly uncomfortable. NGT in place, not currently hooked up to suction. States last night he was vomiting, had NGT inserted, and has continued to be nauseous since. Is feeling a little SOB, states it is hard to take a deep breath since his abdomen has been so distended. Has felt warm on and off per his report. Denies any CP or headache. Objective Active Medications: Acetaminophen (Tylenol Tab*) 650 mg PO Q4H PRN PRN Reason: PAIN - MILD, TEMP >100.5 Calcium/Vitamin D (Oscal D Tab 250/125*) 1 tab PO DAILY [facility] Last Admin: 08/10/19 08:45 Dose: Not Given Cetirizine HCl (Zyrtec*) 10 mg PO DAILY [facility] Last Admin: 08/10/19 08:45 Dose: Not Given Famotidine (Pepcid Iv*) 20 mg IV SLOW PU BID [facility] Last Admin: 08/10/19 09:10 Dose: 20 mg Heparin Sodium (Porcine) (Heparin Vial(*)) 5,000 units SUBCUT Q8HR [facility] Last Admin: 08/10/19 06:33 Dose: 5,000 units Hydromorphone HCl (Dilaudid Inj*) 0.5 mg IV SLOW PU Q4H PRN PRN Reason: PAIN - SEVERE Last Admin: 08/09/19 19:27 Dose: 0.5 mg Ketorolac Tromethamine (Toradol Inj*) 30 mg IV PUSH Q6H PRN PRN Reason: PAIN - MODERATE Stop: 08/12/19 22:00 Last Admin: 08/10/19 04:04 Dose: 30 mg Naloxone HCl (Narcan*) 0.08 mg IV PUSH .Q2MIN PRN PRN Reason: OVERSEDATION Ondansetron HCl (Zofran Inj*) 4 mg IV Q4H PRN PRN Reason: NAUSEA Last Admin: 08/10/19 09:10 Dose: 4 mg Oxycodone HCl (Roxycodone Tab*) 5 mg PO Q6H PRN PRN Reason: PAIN - MODERATE Last Admin: 08/09/19 14:58 Dose: 5 mg Vital Signs - 8 hr 08/10/19 08/10/19 08/10/19 02:59 04:10 07:29 Temperature 98.4 F 97.6 F Pulse Rate 97 89 Respiratory 17 18 18 Rate Blood Pressure 130/67 123/72 (mmHg) O2 Sat by Pulse 96 97 Oximetry 08/10/19 07:39 Temperature 98.5 F Pulse Rate 96 Respiratory 16 Rate Blood Pressure 105/64 (mmHg) O2 Sat by Pulse 96 Oximetry Oxygen Devices in Use Now: None Appearance: Sitting up in bed, appears guarded Eyes: No Scleral Icterus Ears/Nose/Mouth/Throat: Mucous Membranes Moist Neck: - - supple Respiratory: Symmetrical Chest Expansion and Respiratory Effort, Clear to Auscultation Cardiovascular: RRR Abdominal: - - Very hypoactive, quiet BS. Distended, tender around and extending slightly from incision areas. Stoma to RLQ beefy red, edematous, small amount serosang drainage noted in bag, no flatus. Extremities: No Edema Skin: - - Ostomy RLQ abdomen. Small midline incision just medially to ostomy appliance. Neurological: Alert and Oriented x 3 Nutrition: - - NPO, IVF Result Diagrams: 08/10/19 05:39 08/10/19 05:39 Additional Lab and Data: Abnormal Lab Results 08/08/19 08/08/19 08/08/19 06:18 06:18 09:21 WBC 12.3 H RBC 4.12 L Hgb 12.4 L Hct 37 L MCV 89 MCH 30 MCHC 34 RDW 13 Plt Count 226 MPV 7.4 Neut % (Auto) 80.2 Lymph % (Auto) 9.4 [place] % (Auto) 10.3 Eos % (Auto) 0.0 Baso % (Auto) 0.1 Absolute Neuts (auto) 9.8 H Absolute Lymphs (auto) 1.2 Absolute Monos (auto) 1.3 H Absolute Eos (auto) 0.0 Absolute Basos (auto) 0.0 Absolute Nucleated RBC 0.0 Nucleated RBC % 0.0 INR (Anticoag Therapy) 1.34 H APTT 30.1 Sodium 138 Potassium 3.8 Chloride 103 Carbon Dioxide 29 Anion Gap 6 BUN 24 Creatinine 0.88 Est GFR ( Amer) 133.6 Est GFR (Non-Af Amer) 110.4 BUN/Creatinine Ratio 27.3 H Glucose 96 Calcium 8.2 L Total Bilirubin 2.10 H Direct Bilirubin 0.40 H Indirect Bilirubin 1.7 H AST 67 H ALT 38 Alkaline Phosphatase 56 Total Protein 5.5 L Albumin 3.5 Globulin 2.0 Albumin/Globulin Ratio 1.8 Abnormal Lab Results 08/08/19 08/09/19 08/09/19 06:18 06:34 06:34 WBC 8.2 RBC 3.79 L Hgb 11.6 L Hct 34 L MCV 88 MCH 31 MCHC 35 RDW 13 Plt Count 203 MPV 7.2 L Neut % (Auto) 57.9 Lymph % (Auto) 28.9 [place] % (Auto) 11.0 Eos % (Auto) 1.9 Baso % (Auto) 0.3 Absolute Neuts (auto) 4.7 Absolute Lymphs (auto) 2.4 Absolute Monos (auto) 0.9 H Absolute Eos (auto) 0.2 Absolute Basos (auto) 0.0 Absolute Nucleated RBC 0.0 Nucleated RBC % 0.0 Sodium 138 Potassium 3.5 Chloride 106 Carbon Dioxide 30 Anion Gap 2 BUN 18 Creatinine 0.88 Est GFR ( Amer) 133.6 Est GFR (Non-Af Amer) 110.4 BUN/Creatinine Ratio 20.5 H Glucose 97 Calcium 7.9 L Total Bilirubin 2.10 H Direct Bilirubin 0.40 H Indirect Bilirubin 1.7 H AST 67 H ALT 38 Alkaline Phosphatase 56 Total Protein 5.5 L Albumin 3.5 Globulin 2.0 Albumin/Globulin Ratio 1.8 Laboratory Results - last 24 hr 08/10/19 08/10/19 05:39 05:39 Hgb 13.9 L Hct 40 L Sodium 138 Potassium 4.2 Chloride 103 Carbon Dioxide 27 Anion Gap 8 BUN 17 Creatinine 0.88 Est GFR ( Amer) 133.6 Est GFR (Non-Af Amer) 110.4 BUN/Creatinine Ratio 19.3 Glucose 121 H Calcium 9.3 Total Bilirubin 1.10 H Direct Bilirubin 0.20 H Indirect Bilirubin 0.9 AST 52 H ALT 38 Alkaline Phosphatase 55 Total Protein 6.5 Albumin 3.9 Globulin 2.6 Albumin/Globulin Ratio 1.5 Assess/Plan/Problems-Billing Assessment: is a 19yo male with PMHx significant for Asperger's, globus sensation , asthma, eczema, GERD. After flex sigmoidoscopy with GI was noted to have probable volvulus, pt had a surgical consult and went to OR on 08/07 to have a exploratory laparotomy with sigmoid resection with a diverting loop ileostomy with . Back to short stay surgical unit after surgery. - Patient Problems (1) Abdominal pain Current Visit: Yes Status: Acute Code(s): R10.9 - UNSPECIFIED ABDOMINAL PAIN SNOMED Code(s): 17488888 Comment: Colonic obstruction with probable volvulus after flex sigmoidoscopy. OR with for exploratory laparotomy with sigmoid resection with a diverting loop ileostomy on 08/07. Last night pt had episode of N/V, adbominal distention, NGT placed, output from stoma has since decreased. Likely ileus, seen by this morning. - Observation at this point recommended by - Encourage ambulation - continue pain and anti-nausea medication PRN - Continue NGT to LWS - NPO - IVF - ostomy care and teaching - per surgery and nursing (2) Anemia Current Visit: Yes Status: Acute Code(s): D64.9 - ANEMIA, UNSPECIFIED SNOMED Code(s): 316424962 Comment: H+H 13.9/40, improved, subsequent values not necessary at this time (3) Elevated liver enzymes Current Visit: Yes Status: Acute Code(s): R74.8 - ABNORMAL LEVELS OF OTHER SERUM ENZYMES SNOMED Code(s): 490101962 Comment: See above for values. Appears to be an acute finding when compared to normal values from prior ED visit on 08/04. Values continue to trend down/ normalize - May order another panel if patient becomes symptomatic or symptoms are suggestive of hepatic dysfunction or obstruction, however at this time it appears that the pt may follow-up outpatient with his PCP as necessary (4) Asthma Current Visit: Yes Status: Acute Code(s): J45.909 - UNSPECIFIED ASTHMA, UNCOMPLICATED SNOMED Code(s): 795085396 Comment: Pt has no signs of exacerbation at this time - continue to monitor (5) DVT prophylaxis Current Visit: Yes Status: Acute Code(s): Z29.9 - ENCOUNTER FOR PROPHYLACTIC MEASURES, UNSPECIFIED SNOMED Code(s): 018085776 Comment: sq heparin Status and Disposition: Status: status decline, guarded Disposition: [facility] Attending: Sheela Larry
[2019-08-10] MEDS: HYDROmorphone INJ* 0.5 MG/0.5 ML SYRINGE IV SLOW PU PRN ×2 (10:16→17:29)
[2019-08-10] MEDS ORDERED: Acetaminophen IV 1GM/100ML * 100 ML IVPB SCH (10:30)
[2019-08-10] MEDS: Phenol 1.4% Spray* 177 ML BTL MT PRN ×2 (10:57→20:01)
--- NOTE | 2019-08-10 11:43 | PN ---
Progress Note - Progress Note Date of Service: 08/10/19 Note: Developed abdominal pain, nausea, and vomiting overnight. NG tube placed early this morning. Patient reports abdominal pain and distension. He has difficulty taking a big breath in. He has been walking. Frustrated by set back. Afebrile. Vital Signs - 12 hr Temp Pulse Resp BP Pulse Ox 08/10/19 10:16 18 08/10/19 07:39 98.5 F 96 16 105/64 96 08/10/19 07:29 18 08/10/19 04:10 97.6 F 89 18 123/72 97 08/10/19 02:59 98.4 F 97 17 130/67 96 08/10/19 00:22 98.2 F 80 16 107/67 97 Intake & Output 08/09/19 08/10/19 08/10/19 22:59 06:59 14:59 Intake Total 100 0 30 Output Total 500 500 Balance -400 -500 30 Intake: Oral 100 0 NG Tube Irrigate Amount 30 Output: NG Tube Drainage Amount 200 Urine 150 0 Ileostomy 250 50 Emesis 100 250 Other: Estimated Void Large # Bowel Movements 1 Estimated Stool Amount Small # Voids 1 2 General: No acute distress. NG tube draining daley-colored thick fluid. Respiratory: No accessory muscle use on room air. Abdomen: Distended and firm. Tenderness to palpation LUQ, no rebound or guarding. Stoma is edematous and red. Serosanguinous fluid in bag. Dressing over incision clean and dry. Neuro: Alert and oriented x3. Moves all extremities equally. Laboratory Results - last 24 hr 08/10/19 08/10/19 05:39 05:39 Hgb 13.9 L Hct 40 L Sodium 138 Potassium 4.2 Chloride 103 Carbon Dioxide 27 Anion Gap 8 BUN 17 Creatinine 0.88 Est GFR ( Amer) 133.6 Est GFR (Non-Af Amer) 110.4 BUN/Creatinine Ratio 19.3 Glucose 121 H Calcium 9.3 Total Bilirubin 1.10 H Direct Bilirubin 0.20 H Indirect Bilirubin 0.9 AST 52 H ALT 38 Alkaline Phosphatase 55 Total Protein 6.5 Albumin 3.9 Globulin 2.6 Albumin/Globulin Ratio 1.5 19M with sigmoid volvulus s/p sigmoid resection and diverting ileostomy POD 3. Appears to have ileus now. Talked with parents at length that ileus is common after surgery, even after there was ostomy output. -NPO. NG to low continuous suction. -IV fluids -Encourage walking/OOB. -Discussed with parents that if he needs dilaudid for pain control, he should use it. However is Toradol is sufficient, try to avoid narcotics. Hospitalist team plans to order IV tylenol. -DVT ppx: SQH -Parents requesting GI input.
[2019-08-10] MEDS ORDERED: Lactated Ringers 1000 ML Bag* 1,000 ML IV ONE (11:47)
[2019-08-10] MEDS ORDERED: Lactated Ringers 1000 ML Bag* 1,000 ML IV SCH (13:00)
[2019-08-10] MEDS: Acetaminophen IV 1GM/100ML * 100 ML IVPB SCH (20:48)
[2019-08-11] MEDS: Acetaminophen IV 1GM/100ML * 100 ML IVPB SCH (04:10)
[2019-08-11] MEDS: Heparin VIAL(*) 5000 UNITS/ML VIAL (FIVE THOUSAND) SUBCUT SCH ×3 (05:44→21:26)
[2019-08-11] MEDS: Phenol 1.4% Spray* 177 ML BTL MT PRN ×2 (05:49→21:24)
[2019-08-11 06:05] LABS: Calcium 9.1 mg/dL (8.6-10.3); Potassium 3.9 mmol/L (3.5-5.0)
[2019-08-11 06:10] LABS: BUN/Creatinine Ratio 28.3 (8-20); EGFR African American 126.9 (>60); EGFR Non-African American 104.9 (>60)
[2019-08-11] MEDS: Lactated Ringers 1000 ML Bag* 1,000 ML IV SCH ×3 (07:31→21:10)
[2019-08-11] MEDS: Cetirizine* 10 MG TAB PO SCH (07:39)
[2019-08-11] MEDS: Famotidine IV* 10 MG/ML 2 ML (20 mg) IV SLOW PU SCH ×2 (09:34→20:03)
[2019-08-11 09:59] LABS: ABS Eosinophils 0.3 10^3/ul (0-0.6); ABS Lymphocytes 0.9 10^3/ul (1.0-4.8); ABS Neutrophils 3.7 10^3/ul (1.5-7.7); Eosinophil % 4.2 %; Hematocrit 38 % (42-52); Hemoglobin 12.8 g/dL (14.0-18.0); Lymphocyte % 15.6 %; Mean Corpuscular HGB Conc 34 g/dL (31-36); Mean Corpuscular Hemoglobin 30 pg (27-31); Mean Corpuscular Volume 90 fL (80-94); Mean Platelet Volume 7.2 fL (7.4-10.4); Platelet Count 328 10^3/uL (150-450); Red Cell Distribution Width 13 % (10-15)
[2019-08-11] MEDS: Ketorolac INJ* 30 MG/ML 1 ML VIAL IV PUSH PRN (09:59)
--- NOTE | 2019-08-11 11:29 | PN ---
Progress Note - Progress Note Date of Service: 08/11/19 Note: Patient feeling a little better this morning. The abdominal pain and distension is improved a little. He thinks he is not needing the pain medication as often. He feels the IV tylenol was helpful. He denies nausea. He has been walking in the halls. The nurse reported serous fluid in the ostomy bag only. The patient has not heard air pass into the bag. Afebrile. Vital Signs - 12 hr Temp Pulse Resp BP Pulse Ox 08/11/19 07:36 16 08/11/19 07:24 98.2 F 91 16 120/63 96 08/11/19 04:05 98.2 F 86 16 122/59 94 Intake & Output 08/10/19 08/11/19 08/11/19 22:59 06:59 14:59 Intake Total 1225 0 1098 Output Total 900 1175 170 Balance 325 -1175 928 Intake: IV Fluids 945 968 LR 945 968 IVPB 200 100 tylenol 200 100 Oral 0 0 NG Tube Irrigate Amount 80 30 Output: NG Tube Drainage Amount 530 725 Urine 350 250 50 Ileostomy 20 200 120 General: NAD, lying in bed. NG in place, draining bilious fluid. Abdomen: Soft. Moderately distended, but improved from yesterday. Tenderness in LUQ. No rebound or guarding. Incision c/d/i with gustavo. Stoma edematous and red, appears less edematous than yesterday. Bilious fluid in ostomy bag. Neuro: Alert, answers questions appropriately. Psych: Flat affect. Laboratory Results - last 24 hr 08/11/19 08/11/19 05:42 09:47 WBC 6.0 RBC 4.20 Hgb 12.8 L Hct 38 L MCV 90 MCH 30 MCHC 34 RDW 13 Plt Count 328 MPV 7.2 L Neut % (Auto) 62.5 Lymph % (Auto) 15.6 [place] % (Auto) 17.3 Eos % (Auto) 4.2 Baso % (Auto) 0.4 Absolute Neuts (auto) 3.7 Absolute Lymphs (auto) 0.9 L Absolute Monos (auto) 1.0 H Absolute Eos (auto) 0.3 Absolute Basos (auto) 0.0 Absolute Nucleated RBC 0.0 Nucleated RBC % 0.0 Sodium 140 Potassium 3.9 Chloride 103 Carbon Dioxide 29 Anion Gap 8 BUN 26 H Creatinine 0.92 Est GFR ( Amer) 126.9 Est GFR (Non-Af Amer) 104.9 BUN/Creatinine Ratio 28.3 H Glucose 100 Calcium 9.1 A&P 19M with sigmoid volvulus s/p sigmoid resection and diverting ileostomy POD 4. Now with ileus, but appears to be improving. Appears to now have bilious output in ostomy bag which is a change from earlier this morning. -NPO. -IVF. Will have to monitor ostomy output and adjust IVF rate accordingly. -NG to low continuous suction. -Continue IV Tylenol if possible. Limit narcotics if able. -Encourage walking -DVT ppx: SQH
--- NOTE | 2019-08-11 12:38 | PN ---
Subjective Date of Service: 08/11/19 Interval History: Pt states that he is "maybe" feeling better than yesterday. Unsure if he has been feeling feverish. Nauseous still at times but no dry heaving with NGT in place. Pain present but tolerable with medications. Has been walking around unit. Thinks there is more drainage from stoma today but not noticing flatus in appliance. Believes abdomen less distended than yesterday. States still a little SOB, maybe able to breathe deeper than yesterday. Thinks urine still concentrated in appearance. Denies any headache, CP, numbness/tingling. Objective Active Medications: Cetirizine HCl (Zyrtec*) 10 mg PO DAILY [facility] Last Admin: 08/11/19 07:39 Dose: Not Given Famotidine (Pepcid Iv*) 20 mg IV SLOW PU BID [facility] Last Admin: 08/11/19 09:34 Dose: 20 mg Heparin Sodium (Porcine) (Heparin Vial(*)) 5,000 units SUBCUT Q8HR [facility] Last Admin: 08/11/19 05:44 Dose: 5,000 units Hydromorphone HCl (Dilaudid Inj*) 0.5 mg IV SLOW PU Q4H PRN PRN Reason: PAIN - SEVERE Last Admin: 08/10/19 17:29 Dose: 0.5 mg Lactated Ringer's (Lactated Ringers 1000 Ml Bag*) 1,000 mls @ 150 mls/hr IV PER RATE [facility] Last Admin: 08/11/19 07:31 Dose: 150 mls/hr Ketorolac Tromethamine (Toradol Inj*) 30 mg IV PUSH Q6H PRN PRN Reason: PAIN - MODERATE Stop: 08/12/19 22:00 Last Admin: 08/11/19 09:59 Dose: 30 mg Naloxone HCl (Narcan*) 0.08 mg IV PUSH .Q2MIN PRN PRN Reason: OVERSEDATION Ondansetron HCl (Zofran Inj*) 4 mg IV Q4H PRN PRN Reason: NAUSEA Last Admin: 08/10/19 17:29 Dose: 4 mg Oxycodone HCl (Roxycodone Tab*) 5 mg PO Q6H PRN PRN Reason: PAIN - MODERATE Last Admin: 08/09/19 14:58 Dose: 5 mg Phenol/Menthol (Chloroseptic Throat [place]*) 1 spray MT TID PRN PRN Reason: SORE THROAT Last Admin: 08/11/19 05:49 Dose: 1 spray Vital Signs - 8 hr 08/11/19 08/11/19 08/11/19 07:24 07:36 11:40 Temperature 98.2 F 99.6 F Pulse Rate 91 79 Respiratory 16 16 16 Rate Blood Pressure 120/63 125/64 (mmHg) O2 Sat by Pulse 96 99 Oximetry Oxygen Devices in Use Now: None Appearance: Laying in bed, guarded, cooperative, NAD Eyes: No Scleral Icterus - PERRL Ears/Nose/Mouth/Throat: Mucous Membranes Moist Respiratory: Symmetrical Chest Expansion and Respiratory Effort, Clear to Auscultation Cardiovascular: RRR - rate increase with inhalation, otherwise regular, S1/S2 present, no murmurs rubs or gallops Abdominal: - - very hypoactive BS, mild distention, tender to palpation, moreso to the L side than the R. Stoma to RLQ beefy red, mildly edematous, moderate amount brown serous drainage, no notable flatus. Extremities: No Edema Skin: - - ostomy RLQ abdomen, incision just medially to appliance Neurological: Alert and Oriented x 3 Nutrition: - - NPO, IVF Result Diagrams: 08/11/19 09:47 08/11/19 05:42 Additional Lab and Data: Abnormal Lab Results 08/08/19 08/08/19 08/08/19 06:18 06:18 09:21 WBC 12.3 H RBC 4.12 L Hgb 12.4 L Hct 37 L MCV 89 MCH 30 MCHC 34 RDW 13 Plt Count 226 MPV 7.4 Neut % (Auto) 80.2 Lymph % (Auto) 9.4 [place] % (Auto) 10.3 Eos % (Auto) 0.0 Baso % (Auto) 0.1 Absolute Neuts (auto) 9.8 H Absolute Lymphs (auto) 1.2 Absolute Monos (auto) 1.3 H Absolute Eos (auto) 0.0 Absolute Basos (auto) 0.0 Absolute Nucleated RBC 0.0 Nucleated RBC % 0.0 INR (Anticoag Therapy) 1.34 H APTT 30.1 Sodium 138 Potassium 3.8 Chloride 103 Carbon Dioxide 29 Anion Gap 6 BUN 24 Creatinine 0.88 Est GFR ( Amer) 133.6 Est GFR (Non-Af Amer) 110.4 BUN/Creatinine Ratio 27.3 H Glucose 96 Calcium 8.2 L Total Bilirubin 2.10 H Direct Bilirubin 0.40 H Indirect Bilirubin 1.7 H AST 67 H ALT 38 Alkaline Phosphatase 56 Total Protein 5.5 L Albumin 3.5 Globulin 2.0 Albumin/Globulin Ratio 1.8 Abnormal Lab Results 08/08/19 08/09/19 08/09/19 06:18 06:34 06:34 WBC 8.2 RBC 3.79 L Hgb 11.6 L Hct 34 L MCV 88 MCH 31 MCHC 35 RDW 13 Plt Count 203 MPV 7.2 L Neut % (Auto) 57.9 Lymph % (Auto) 28.9 [place] % (Auto) 11.0 Eos % (Auto) 1.9 Baso % (Auto) 0.3 Absolute Neuts (auto) 4.7 Absolute Lymphs (auto) 2.4 Absolute Monos (auto) 0.9 H Absolute Eos (auto) 0.2 Absolute Basos (auto) 0.0 Absolute Nucleated RBC 0.0 Nucleated RBC % 0.0 Sodium 138 Potassium 3.5 Chloride 106 Carbon Dioxide 30 Anion Gap 2 BUN 18 Creatinine 0.88 Est GFR ( Amer) 133.6 Est GFR (Non-Af Amer) 110.4 BUN/Creatinine Ratio 20.5 H Glucose 97 Calcium 7.9 L Total Bilirubin 2.10 H Direct Bilirubin 0.40 H Indirect Bilirubin 1.7 H AST 67 H ALT 38 Alkaline Phosphatase 56 Total Protein 5.5 L Albumin 3.5 Globulin 2.0 Albumin/Globulin Ratio 1.8 Laboratory Results - last 24 hr 08/10/19 08/10/19 05:39 05:39 Hgb 13.9 L Hct 40 L Sodium 138 Potassium 4.2 Chloride 103 Carbon Dioxide 27 Anion Gap 8 BUN 17 Creatinine 0.88 Est GFR ( Amer) 133.6 Est GFR (Non-Af Amer) 110.4 BUN/Creatinine Ratio 19.3 Glucose 121 H Calcium 9.3 Total Bilirubin 1.10 H Direct Bilirubin 0.20 H Indirect Bilirubin 0.9 AST 52 H ALT 38 Alkaline Phosphatase 55 Total Protein 6.5 Albumin 3.9 Globulin 2.6 Albumin/Globulin Ratio 1.5 Assess/Plan/Problems-Billing Assessment: is a 19yo male with PMHx significant for Asperger's, globus sensation , asthma, eczema, GERD. After flex sigmoidoscopy with GI was noted to have probable volvulus, pt had a surgical consult and went to OR on 08/07 to have a exploratory laparotomy with sigmoid resection with a diverting loop ileostomy with . Back to short stay surgical unit after surgery. - Patient Problems (1) Status post ileostomy Current Visit: Yes Status: Acute Code(s): Z93.2 - ILEOSTOMY STATUS SNOMED Code(s): 389963612 Comment: Presented to EDX2 with abdominal pain. Colonic obstruction with probable volvulus after flex sigmoidoscopy. OR with for exploratory laparotomy with sigmoid resection with a diverting loop ileostomy on 08/07. 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 Likely ileus. Seen by this morning. C/o concentrated urine, u/o slowing down, slight increase in BUN, Cr, and ratio. - Continue with observation at this point - management per surgery - Encourage ambulation - continue pain and anti-nausea medication PRN - Continue NGT to LWS - NPO - IVF maintenance plus a 500ml bolus - ostomy care and teaching - per surgery and nursing (2) Anemia Current Visit: Yes Status: Acute Code(s): D64.9 - ANEMIA, UNSPECIFIED SNOMED Code(s): 170118091 Comment: Stable, no acute concerns at this time (3) Elevated liver enzymes Current Visit: Yes Status: Acute Code(s): R74.8 - ABNORMAL LEVELS OF OTHER SERUM ENZYMES SNOMED Code(s): 134896745 Comment: See above for values. Appears to be an acute finding when compared to normal values from prior ED visit on 08/04. Values continue to trend down/ normalize - May order another panel if patient becomes symptomatic or signs are suggestive of hepatic dysfunction or obstruction, however at this time it appears that the pt may follow-up outpatient with his PCP as necessary (4) Asthma Current Visit: Yes Status: Acute Code(s): J45.909 - UNSPECIFIED ASTHMA, UNCOMPLICATED SNOMED Code(s): 891556070 Comment: Pt has no signs of exacerbation at this time - continue to monitor (5) DVT prophylaxis Current Visit: Yes Status: Acute Code(s): Z29.9 - ENCOUNTER FOR PROPHYLACTIC MEASURES, UNSPECIFIED SNOMED Code(s): 003152507 Comment: sq heparin Status and Disposition: Status: status decline, guarded Disposition: [facility] Attending: Sheela Larry
[2019-08-11] MEDS: Ondansetron INJ* 2 MG/ML VIAL IV PRN ×2 (15:49→20:01)
[2019-08-12] MEDS: Lactated Ringers 1000 ML Bag* 1,000 ML IV SCH ×2 (04:42→13:55)
[2019-08-12] MEDS: Ketorolac INJ* 30 MG/ML 1 ML VIAL IV PUSH PRN ×2 (04:58→13:20)
[2019-08-12 05:53] LABS: Calcium 8.6 mg/dL (8.6-10.3); Potassium 3.9 mmol/L (3.5-5.0)
[2019-08-12 05:58] LABS: EGFR African American 131.9 (>60)
[2019-08-12] MEDS: Heparin VIAL(*) 5000 UNITS/ML VIAL (FIVE THOUSAND) SUBCUT SCH ×3 (06:06→22:40)
[2019-08-12] MEDS ORDERED: NS 0.9% 1000 ML** 1,000 ML IV ONE (09:17)
--- NOTE | 2019-08-12 09:25 | PN ---
Progress Note - Progress Note Date of Service: 08/12/19 SOAP: Subjective: Events of weekend noted and discussed with Dr. Self He is having bilious output from ileostomy again, less distended Pain is well controlled Had several loose BM's per rectum in last 24 hours Objective: Temp Pulse Resp BP Pulse Ox 97.8 F 96 17 127/63 98 08/12/19 03:14 08/12/19 03:14 08/12/19 03:14 08/12/19 03:14 08/12/19 03:14 Intake & Output 08/10/19 08/11/19 08/12/19 08/13/19 06:59 06:59 06:59 06:59 Intake Total 100 1285 4561 Output Total 1200 2395 4520 Balance -1100 -1110 41 Intake: IV Fluids 945 3901 LR 945 3901 IVPB 200 600 LR 500 tylenol 200 100 Oral 100 0 0 NG Tube Irrigate Amount 140 60 Output: NG Tube Drainage Amount 200 1575 750 Urine 350 600 700 Ileostomy 945 732 4316 Emesis 350 Other: Estimated Void Large # Bowel Movements 1 1 Estimated Stool Amount Small Large Other Amount Description unmeasurable amount in ileostomy # Voids 2 3 PEX: Comfortable-awake and alert Lungs are clear Abd is soft and slightly distended. Bowel sounds present, somewhat hypoactive, slightly high pitched. Ostomy is pink and edematous, thin bilious fluid in bag. Incision CDI Laboratory Results - last 24 hr 08/11/19 08/12/19 09:47 05:17 WBC 6.0 RBC 4.20 Hgb 12.8 L Hct 38 L MCV 90 MCH 30 MCHC 34 RDW 13 Plt Count 328 MPV 7.2 L Neut % (Auto) 62.5 Lymph % (Auto) 15.6 [place] % (Auto) 17.3 Eos % (Auto) 4.2 Baso % (Auto) 0.4 Absolute Neuts (auto) 3.7 Absolute Lymphs (auto) 0.9 L Absolute Monos (auto) 1.0 H Absolute Eos (auto) 0.3 Absolute Basos (auto) 0.0 Absolute Nucleated RBC 0.0 Nucleated RBC % 0.0 Sodium 143 Potassium 3.9 Chloride 109 Carbon Dioxide 25 Anion Gap 9 BUN 24 Creatinine 0.89 Est GFR ( Amer) 131.9 Est GFR (Non-Af Amer) 109.0 BUN/Creatinine Ratio 27.0 H Glucose 82 Calcium 8.6 Assessment: POD# 5 s/p sigmoid colon resection with diverting loop ileostomy for sigmoid volvulus Ileus-appears to be improving Plan: D/C NGT Give additional fluid IV Sips of water, ice chips po Ostomy care PPI/subq heparin Repeat labs in AM All discussed with patient and his mother at bedside this morning.
[2019-08-12] MEDS: Cetirizine* 10 MG TAB PO SCH ×2 (10:07→10:12)
[2019-08-12] MEDS: Famotidine IV* 10 MG/ML 2 ML (20 mg) IV SLOW PU SCH (10:07)
[2019-08-12] MEDS: Phenol 1.4% Spray* 177 ML BTL MT PRN ×2 (13:22→17:19)
--- NOTE | 2019-08-12 14:31 | PN ---
Subjective Date of Service: 08/12/19 Interval History: Patient has no complaints today. Increased output from ileostomy, and has had some gas passing from anus. He denies nausea, abd pain, vomiting, fever/chills, difficulty breathing, chest pain. Objective Active Medications: Cetirizine HCl (Zyrtec*) 10 mg PO DAILY [facility] Last Admin: 08/12/19 10:12 Dose: Not Given Famotidine (Pepcid Iv*) 20 mg IV SLOW PU BID [facility] Last Admin: 08/12/19 10:07 Dose: 20 mg Heparin Sodium (Porcine) (Heparin Vial(*)) 5,000 units SUBCUT Q8HR [facility] Last Admin: 08/12/19 13:23 Dose: 5,000 units Hydromorphone HCl (Dilaudid Inj*) 0.5 mg IV SLOW PU Q4H PRN PRN Reason: PAIN - SEVERE Last Admin: 08/10/19 17:29 Dose: 0.5 mg Lactated Ringer's (Lactated Ringers 1000 Ml Bag*) 1,000 mls @ 150 mls/hr IV PER RATE [facility] Last Admin: 08/12/19 13:55 Dose: 150 mls/hr Ketorolac Tromethamine (Toradol Inj*) 30 mg IV PUSH Q6H PRN PRN Reason: PAIN - MODERATE Stop: 08/12/19 22:00 Last Admin: 08/12/19 13:20 Dose: 30 mg Naloxone HCl (Narcan*) 0.08 mg IV PUSH .Q2MIN PRN PRN Reason: OVERSEDATION Ondansetron HCl (Zofran Inj*) 4 mg IV Q4H PRN PRN Reason: NAUSEA Last Admin: 08/11/19 20:01 Dose: 4 mg Oxycodone HCl (Roxycodone Tab*) 5 mg PO Q6H PRN PRN Reason: PAIN - MODERATE Last Admin: 08/09/19 14:58 Dose: 5 mg Phenol/Menthol (Chloroseptic Throat [place]*) 1 spray MT TID PRN PRN Reason: SORE THROAT Last Admin: 08/12/19 13:22 Dose: 1 spray Vital Signs - 8 hr 08/12/19 08/12/19 08:00 10:15 Temperature 97.9 F Pulse Rate 67 Respiratory 16 16 Rate Blood Pressure 115/65 (mmHg) O2 Sat by Pulse 99 Oximetry Oxygen Devices in Use Now: None Appearance: Thin, young white male, laying upright in bed, appearing in NAD, NG tube in place Eyes: No Scleral Icterus, - - PERRL Ears/Nose/Mouth/Throat: Mucous Membranes Moist Neck: Trachea Midline Respiratory: Symmetrical Chest Expansion and Respiratory Effort, Clear to Auscultation Cardiovascular: NL Sounds; No Murmurs; No JVD, RRR Abdominal: - - hyperactive BS, abd minimally distended, nontender Extremities: No Edema, No Clubbing, Cyanosis Skin: No Rash or Ulcers Neurological: Alert and Oriented x 3 Result Diagrams: 08/11/19 09:47 08/12/19 05:17 Additional Lab and Data: Abnormal Lab Results 08/08/19 08/08/19 08/08/19 06:18 06:18 09:21 WBC 12.3 H RBC 4.12 L Hgb 12.4 L Hct 37 L MCV 89 MCH 30 MCHC 34 RDW 13 Plt Count 226 MPV 7.4 Neut % (Auto) 80.2 Lymph % (Auto) 9.4 [place] % (Auto) 10.3 Eos % (Auto) 0.0 Baso % (Auto) 0.1 Absolute Neuts (auto) 9.8 H Absolute Lymphs (auto) 1.2 Absolute Monos (auto) 1.3 H Absolute Eos (auto) 0.0 Absolute Basos (auto) 0.0 Absolute Nucleated RBC 0.0 Nucleated RBC % 0.0 INR (Anticoag Therapy) 1.34 H APTT 30.1 Sodium 138 Potassium 3.8 Chloride 103 Carbon Dioxide 29 Anion Gap 6 BUN 24 Creatinine 0.88 Est GFR ( Amer) 133.6 Est GFR (Non-Af Amer) 110.4 BUN/Creatinine Ratio 27.3 H Glucose 96 Calcium 8.2 L Total Bilirubin 2.10 H Direct Bilirubin 0.40 H Indirect Bilirubin 1.7 H AST 67 H ALT 38 Alkaline Phosphatase 56 Total Protein 5.5 L Albumin 3.5 Globulin 2.0 Albumin/Globulin Ratio 1.8 Abnormal Lab Results 08/08/19 08/09/19 08/09/19 06:18 06:34 06:34 WBC 8.2 RBC 3.79 L Hgb 11.6 L Hct 34 L MCV 88 MCH 31 MCHC 35 RDW 13 Plt Count 203 MPV 7.2 L Neut % (Auto) 57.9 Lymph % (Auto) 28.9 [place] % (Auto) 11.0 Eos % (Auto) 1.9 Baso % (Auto) 0.3 Absolute Neuts (auto) 4.7 Absolute Lymphs (auto) 2.4 Absolute Monos (auto) 0.9 H Absolute Eos (auto) 0.2 Absolute Basos (auto) 0.0 Absolute Nucleated RBC 0.0 Nucleated RBC % 0.0 Sodium 138 Potassium 3.5 Chloride 106 Carbon Dioxide 30 Anion Gap 2 BUN 18 Creatinine 0.88 Est GFR ( Amer) 133.6 Est GFR (Non-Af Amer) 110.4 BUN/Creatinine Ratio 20.5 H Glucose 97 Calcium 7.9 L Total Bilirubin 2.10 H Direct Bilirubin 0.40 H Indirect Bilirubin 1.7 H AST 67 H ALT 38 Alkaline Phosphatase 56 Total Protein 5.5 L Albumin 3.5 Globulin 2.0 Albumin/Globulin Ratio 1.8 Laboratory Results - last 24 hr 08/10/19 08/10/19 05:39 05:39 Hgb 13.9 L Hct 40 L Sodium 138 Potassium 4.2 Chloride 103 Carbon Dioxide 27 Anion Gap 8 BUN 17 Creatinine 0.88 Est GFR ( Amer) 133.6 Est GFR (Non-Af Amer) 110.4 BUN/Creatinine Ratio 19.3 Glucose 121 H Calcium 9.3 Total Bilirubin 1.10 H Direct Bilirubin 0.20 H Indirect Bilirubin 0.9 AST 52 H ALT 38 Alkaline Phosphatase 55 Total Protein 6.5 Albumin 3.9 Globulin 2.6 Albumin/Globulin Ratio 1.5 Assess/Plan/Problems-Billing Assessment: is a 19yo male with PMHx significant for Asperger's, globus sensation , asthma, eczema, GERD. After flex sigmoidoscopy with GI was noted to have probable volvulus, went to OR on 08/07 to have a exploratory laparotomy with sigmoid resection with a diverting loop ileostomy. - Patient Problems (1) Sigmoid volvulus Current Visit: Yes Status: Acute Comment: -presented 08/06/19 with abdominal pain, diagnosied with sigmoid volvulus on flex sig -gen surg proceeded with surgery. Patient received sigmoid resection and diverting ileostomy, further mgmt below (2) Status post ileostomy Current Visit: Yes Status: Acute Code(s): Z93.2 - ILEOSTOMY STATUS SNOMED Code(s): 254030148 Comment: - Ileostomy in place as diversion after sigmoid resection - Patient has passed BM from below and ileostomy output has improved today - Management per surgery - continue pain and anti-nausea medication PRN; has NG in place now due to ileus , further described below - Ice chips diet, advance per gen surg rec (3) Ileus Current Visit: Yes Status: Acute Code(s): K56.7 - ILEUS, UNSPECIFIED SNOMED Code(s): 246880718 Comment: -patient with N/V, likely postoperative ileus -currently has NG tube in place -nausea resolved today, improved output from ileostomy and more BS -gen surg to re-evaluate this afternoon to determine if NG tube can be removed (4) Anemia Current Visit: Yes Status: Acute Code(s): D64.9 - ANEMIA, UNSPECIFIED SNOMED Code(s): 441833353 Comment: -very mild anemia postoperatively, has been stable -likely combination of high volume IVF and recent surgery (5) Asthma Current Visit: Yes Status: Acute Code(s): J45.909 - UNSPECIFIED ASTHMA, UNCOMPLICATED SNOMED Code(s): 944232997 Comment: -no evidence of exacerbation -patient has been controlled without daily home medication -prn albuterol inhaler (6) Elevated liver enzymes Current Visit: Yes Status: Acute Code(s): R74.8 - ABNORMAL LEVELS OF OTHER SERUM ENZYMES SNOMED Code(s): 580828768 Comment: -likely related to bowel stress from volvulus -improving -will trend (7) DVT prophylaxis Current Visit: Yes Status: Acute Code(s): Z29.9 - ENCOUNTER FOR PROPHYLACTIC MEASURES, UNSPECIFIED SNOMED Code(s): 107843840 Comment: -sq heparin (8) Full code status Current Visit: Yes Status: Acute Code(s): Z78.9 - OTHER SPECIFIED HEALTH STATUS SNOMED Code(s): 988463204 Status and Disposition: anticipate d/c home when medically improved
[2019-08-12] MEDS ORDERED: Albuterol HFA INHALER* 8 gm MDI INH PRN (14:37)
[2019-08-13] MEDS: Lactated Ringers 1000 ML Bag* 1,000 ML IV SCH ×4 (00:04→20:50)
[2019-08-13 04:32] LABS: ABS Basophils 0.1 10^3/ul (0-0.2); ABS Eosinophils 0.3 10^3/ul (0-0.6); ABS Lymphocytes 1.7 10^3/ul (1.0-4.8); ABS Monocytes 1.2 10^3/ul (0-0.8); ABS Neutrophils 4.4 10^3/ul (1.5-7.7); Eosinophil % 3.5 %; Hematocrit 38 % (42-52); Hemoglobin 12.6 g/dL (14.0-18.0); Lymphocyte % 22.4 %; Mean Corpuscular HGB Conc 34 g/dL (31-36); Mean Corpuscular Hemoglobin 30 pg (27-31); Mean Corpuscular Volume 90 fL (80-94); Mean Platelet Volume 7.1 fL (7.4-10.4); Platelet Count 336 10^3/uL (150-450); Red Blood Count 4.17 10^6 /uL (4.18-5.48); Red Cell Distribution Width 13 % (10-15); White Blood Count 7.6 10^3/uL (3.5-10.8)
[2019-08-13 04:44] LABS: Albumin 3.3 g/dL (3.2-5.2); Anion Gap 9 mmol/L (2-11); CO2 Carbon Dioxide 24 mmol/L (22-32); Calcium 8.3 mg/dL (8.6-10.3); Chloride 104 mmol/L (101-111); Potassium 3.8 mmol/L (3.5-5.0); Sodium 137 mmol/L (135-145)
[2019-08-13 04:50] LABS: ALT 57 U/L (7-52); AST 59 U/L (13-39); Albumin/Globulin Ratio 1.4 (1-3); Alkaline Phosphatase 50 U/L (34-104); BUN/Creatinine Ratio 23.7 (8-20); Blood Urea Nitrogen 18 mg/dL (6-24); EGFR African American 158.2 (>60); EGFR Non-African American 130.8 (>60); Globulin 2.3 g/dL (2-4); Glucose 72 mg/dL (70-100); Total Protein 5.6 g/dL (6.4-8.9)
[2019-08-13] MEDS: Heparin VIAL(*) 5000 UNITS/ML VIAL (FIVE THOUSAND) SUBCUT SCH ×3 (05:43→22:16)
--- NOTE | 2019-08-13 08:34 | PN ---
Progress Note - Progress Note Date of Service: 08/13/19 SOAP: Subjective: NGT out last night--no further N/V Slept poorly Ambulating in halls Objective: Temp Pulse Resp BP Pulse Ox 98.3 F 58 17 135/61 100 08/13/19 04:10 08/13/19 04:10 08/13/19 04:10 08/13/19 04:10 08/13/19 04:10 Intake & Output 08/11/19 08/12/19 08/13/19 08/14/19 06:59 06:59 06:59 06:59 Intake Total 1285 4561 4478 Output Total 2395 4520 3155 Balance -1110 41 1323 Intake: IV Fluids 945 3901 2846 LR 945 3901 1961 NS (0.9%) 885 IVPB 573 896 3037 LR 500 NS (0.9%) 1052 tylenol 200 100 Oral 0 0 580 NG Tube Irrigate Amount 140 60 Output: NG Tube Drainage Amount 1575 750 50 G Tube 300 Urine 288 526 8018 Ileostomy 220 3070 1500 Other: # Bowel Movements 1 1 Estimated Stool Amount Small Large # Voids 3 2 PEX: Comfortable Abd is soft and slightly distended. Incision is CDI. Ostomy pink and edematous- dark brown/bilious fluid in bag. Bowel sounds present, hypoactive Laboratory Results - last 24 hr 08/13/19 08/13/19 04:21 04:21 WBC 7.6 RBC 4.17 L Hgb 12.6 L Hct 38 L MCV 90 MCH 30 MCHC 34 RDW 13 Plt Count 336 MPV 7.1 L Neut % (Auto) 58.0 Lymph % (Auto) 22.4 [place] % (Auto) 15.3 Eos % (Auto) 3.5 Baso % (Auto) 0.8 Absolute Neuts (auto) 4.4 Absolute Lymphs (auto) 1.7 Absolute Monos (auto) 1.2 H Absolute Eos (auto) 0.3 Absolute Basos (auto) 0.1 Absolute Nucleated RBC 0.0 Nucleated RBC % 0.0 Sodium 137 Potassium 3.8 Chloride 104 Carbon Dioxide 24 Anion Gap 9 BUN 18 Creatinine 0.76 Est GFR ( Amer) 158.2 Est GFR (Non-Af Amer) 130.8 BUN/Creatinine Ratio 23.7 H Glucose 72 Calcium 8.3 L Total Bilirubin 0.80 AST 59 H ALT 57 H Alkaline Phosphatase 50 Total Protein 5.6 L Albumin 3.3 Globulin 2.3 Albumin/Globulin Ratio 1.4 Assessment: POD#6 s/p sigmoid colon resection with diverting loop ileostomy for sigmoid volvulus Ileus-resolving, NGT out Labs noted Plan: Clear liquids Ostomy care Continue IVF for now PPI and subq heparin Care discussed with mother this morning at bedside
[2019-08-13] MEDS: Famotidine IV* 10 MG/ML 2 ML (20 mg) IV SLOW PU SCH ×3 (08:48→20:50)
[2019-08-13] MEDS: Cetirizine* 10 MG TAB PO SCH (08:48)
[2019-08-13] MEDS: oxyCODONE TAB* 5 MG TAB PO PRN (08:48)
[2019-08-13 09:06] LABS: TSH (Thyroid Stimulating Horm) 3.95 mcIU/mL (0.34-5.60)
[2019-08-13 09:13] LABS: % Iron Saturation 31 % (15-55); Iron 79 ug/dL (50-212); Total Iron Binding Capacity 252 mcg/dL (250-450); Transferrin 180 mg/dL (203-362)
[2019-08-13 10:10] LABS: Hepatitis B Surface Antigen Nonreactive (Nonreactive)
[2019-08-13 10:27] LABS: Hepatitis C Antibody Negative (Negative)
--- NOTE | 2019-08-13 16:27 | PN ---
Subjective Date of Service: 08/13/19 Interval History: Patient without complaints today. Mentions he passed gas from his anus, as well as from his ileostomy. He has continued ileostomy output today. Denies abd pain , nausea, vomiting, chest pain, difficulty breathing. Happy to have NG out. No nausea after eating meals. Objective Active Medications: Acetaminophen (Tylenol Tab*) 650 mg PO Q6H PRN PRN Reason: PAIN - MILD Albuterol (Ventolin Hfa Inhaler*) 2 puff INH Q4H PRN PRN Reason: SOB/WHEEZING Cetirizine HCl (Zyrtec*) 10 mg PO DAILY [facility] Last Admin: 08/13/19 08:48 Dose: 10 mg Famotidine (Pepcid Iv*) 20 mg IV SLOW PU BID [facility] Last Admin: 08/13/19 08:48 Dose: 20 mg Heparin Sodium (Porcine) (Heparin Vial(*)) 5,000 units SUBCUT Q8HR [facility] Last Admin: 08/13/19 14:16 Dose: 5,000 units Hydromorphone HCl (Dilaudid Inj*) 0.5 mg IV SLOW PU Q4H PRN PRN Reason: PAIN - SEVERE Last Admin: 08/10/19 17:29 Dose: 0.5 mg Lactated Ringer's (Lactated Ringers 1000 Ml Bag*) 1,000 mls @ 150 mls/hr IV PER RATE [facility] Last Admin: 08/13/19 14:15 Dose: 150 mls/hr Naloxone HCl (Narcan*) 0.08 mg IV PUSH .Q2MIN PRN PRN Reason: OVERSEDATION Ondansetron HCl (Zofran Inj*) 4 mg IV Q4H PRN PRN Reason: NAUSEA Last Admin: 08/11/19 20:01 Dose: 4 mg Oxycodone HCl (Roxycodone Tab*) 5 mg PO Q6H PRN PRN Reason: PAIN - MODERATE Last Admin: 08/13/19 08:48 Dose: 5 mg Phenol/Menthol (Chloroseptic Throat [place]*) 1 spray MT TID PRN PRN Reason: SORE THROAT Last Admin: 08/12/19 17:19 Dose: 1 spray Vital Signs - 8 hr 08/13/19 08/13/19 08/13/19 08:48 09:55 11:30 Temperature 98.5 F Pulse Rate 62 Respiratory 18 16 16 Rate Blood Pressure 131/59 (mmHg) O2 Sat by Pulse 98 Oximetry 08/13/19 16:14 Temperature 99.1 F Pulse Rate 68 Respiratory 16 Rate Blood Pressure 118/67 (mmHg) O2 Sat by Pulse 100 Oximetry Oxygen Devices in Use Now: None Appearance: Thin, young white male Ears/Nose/Mouth/Throat: Mucous Membranes Moist Neck: Trachea Midline Respiratory: Symmetrical Chest Expansion and Respiratory Effort, Clear to Auscultation Cardiovascular: NL Sounds; No Murmurs; No JVD, RRR Abdominal: - - ileostomy with light brown liquid output, ostomy red, abd soft/ nontender/nondistended; hypoactive BS Extremities: No Edema, No Clubbing, Cyanosis Skin: No Rash or Ulcers Neurological: Alert and Oriented x 3 Result Diagrams: 08/13/19 04:21 08/13/19 04:21 Additional Lab and Data: Abnormal Lab Results 08/08/19 08/08/19 08/08/19 06:18 06:18 09:21 WBC 12.3 H RBC 4.12 L Hgb 12.4 L Hct 37 L MCV 89 MCH 30 MCHC 34 RDW 13 Plt Count 226 MPV 7.4 Neut % (Auto) 80.2 Lymph % (Auto) 9.4 [place] % (Auto) 10.3 Eos % (Auto) 0.0 Baso % (Auto) 0.1 Absolute Neuts (auto) 9.8 H Absolute Lymphs (auto) 1.2 Absolute Monos (auto) 1.3 H Absolute Eos (auto) 0.0 Absolute Basos (auto) 0.0 Absolute Nucleated RBC 0.0 Nucleated RBC % 0.0 INR (Anticoag Therapy) 1.34 H APTT 30.1 Sodium 138 Potassium 3.8 Chloride 103 Carbon Dioxide 29 Anion Gap 6 BUN 24 Creatinine 0.88 Est GFR ( Amer) 133.6 Est GFR (Non-Af Amer) 110.4 BUN/Creatinine Ratio 27.3 H Glucose 96 Calcium 8.2 L Total Bilirubin 2.10 H Direct Bilirubin 0.40 H Indirect Bilirubin 1.7 H AST 67 H ALT 38 Alkaline Phosphatase 56 Total Protein 5.5 L Albumin 3.5 Globulin 2.0 Albumin/Globulin Ratio 1.8 Abnormal Lab Results 08/08/19 08/09/19 08/09/19 06:18 06:34 06:34 WBC 8.2 RBC 3.79 L Hgb 11.6 L Hct 34 L MCV 88 MCH 31 MCHC 35 RDW 13 Plt Count 203 MPV 7.2 L Neut % (Auto) 57.9 Lymph % (Auto) 28.9 [place] % (Auto) 11.0 Eos % (Auto) 1.9 Baso % (Auto) 0.3 Absolute Neuts (auto) 4.7 Absolute Lymphs (auto) 2.4 Absolute Monos (auto) 0.9 H Absolute Eos (auto) 0.2 Absolute Basos (auto) 0.0 Absolute Nucleated RBC 0.0 Nucleated RBC % 0.0 Sodium 138 Potassium 3.5 Chloride 106 Carbon Dioxide 30 Anion Gap 2 BUN 18 Creatinine 0.88 Est GFR ( Amer) 133.6 Est GFR (Non-Af Amer) 110.4 BUN/Creatinine Ratio 20.5 H Glucose 97 Calcium 7.9 L Total Bilirubin 2.10 H Direct Bilirubin 0.40 H Indirect Bilirubin 1.7 H AST 67 H ALT 38 Alkaline Phosphatase 56 Total Protein 5.5 L Albumin 3.5 Globulin 2.0 Albumin/Globulin Ratio 1.8 Laboratory Results - last 24 hr 08/10/19 08/10/19 05:39 05:39 Hgb 13.9 L Hct 40 L Sodium 138 Potassium 4.2 Chloride 103 Carbon Dioxide 27 Anion Gap 8 BUN 17 Creatinine 0.88 Est GFR ( Amer) 133.6 Est GFR (Non-Af Amer) 110.4 BUN/Creatinine Ratio 19.3 Glucose 121 H Calcium 9.3 Total Bilirubin 1.10 H Direct Bilirubin 0.20 H Indirect Bilirubin 0.9 AST 52 H ALT 38 Alkaline Phosphatase 55 Total Protein 6.5 Albumin 3.9 Globulin 2.6 Albumin/Globulin Ratio 1.5 Assess/Plan/Problems-Billing Assessment: is a 19yo male with PMHx significant for Asperger's, globus sensation , asthma, eczema, GERD. After flex sigmoidoscopy with GI was noted to have probable volvulus, went to OR on 08/07 to have a exploratory laparotomy with sigmoid resection with a diverting loop ileostomy. - Patient Problems (1) Sigmoid volvulus Current Visit: Yes Status: Acute Comment: -presented 08/06/19 with abdominal pain, diagnosied with sigmoid volvulus on flex sig -gen surg proceeded with surgery. Patient received sigmoid resection and diverting ileostomy, further mgmt below (2) Status post ileostomy Current Visit: Yes Status: Acute Code(s): Z93.2 - ILEOSTOMY STATUS SNOMED Code(s): 693772271 Comment: - Ileostomy in place as diversion after sigmoid resection - Patient has passed BM from below and ileostomy output has improved today - Management per surgery - continue pain and anti-nausea medication PRN; has NG in place now due to ileus , further described below - clear liquid diet, advance per gen surg rec (3) Ileus Current Visit: Yes Status: Acute Code(s): K56.7 - ILEUS, UNSPECIFIED SNOMED Code(s): 169090537 Comment: -patient with N/V, likely postoperative ileus -NG tube removed yesterday and doing well, tolerating clear liquid diet -gen surg dictating diet advancement, appreciate consult (4) Anemia Current Visit: Yes Status: Acute Code(s): D64.9 - ANEMIA, UNSPECIFIED SNOMED Code(s): 152993751 Comment: -very mild anemia postoperatively, has been stable -likely combination of high volume IVF and recent surgery (5) Asthma Current Visit: Yes Status: Acute Code(s): J45.909 - UNSPECIFIED ASTHMA, UNCOMPLICATED SNOMED Code(s): 951369860 Comment: -no evidence of exacerbation -patient has been controlled without daily home medication -prn albuterol inhaler (6) Elevated liver enzymes Current Visit: Yes Status: Acute Code(s): R74.8 - ABNORMAL LEVELS OF OTHER SERUM ENZYMES SNOMED Code(s): 838493999 Comment: -improving -acute hepatitis panel negative -no abdominal pain -should have outpatient f/u (7) DVT prophylaxis Current Visit: Yes Status: Acute Code(s): Z29.9 - ENCOUNTER FOR PROPHYLACTIC MEASURES, UNSPECIFIED SNOMED Code(s): 258252595 Comment: -sq heparin (8) Full code status Current Visit: Yes Status: Acute Code(s): Z78.9 - OTHER SPECIFIED HEALTH STATUS SNOMED Code(s): 626394336 Status and Disposition: anticipate d/c home when medically improved
[2019-08-14] MEDS: Acetaminophen TAB* 325 MG PO PRN ×3 (01:25→15:36)
[2019-08-14] MEDS: Lactated Ringers 1000 ML Bag* 1,000 ML IV SCH ×3 (03:31→21:05)
[2019-08-14] MEDS: Ondansetron INJ* 2 MG/ML VIAL IV PRN ×3 (03:42→16:38)
[2019-08-14] MEDS ORDERED: Metoclopramide IV* 5 MG/ML 2 ML VIAL ONE (04:29)
[2019-08-14] MEDS: Metoclopramide IV* 5 MG/ML 2 ML VIAL IV PRN ×2 (04:34→15:21)
[2019-08-14] MEDS: Phenol 1.4% Spray* 177 ML BTL MT PRN (04:37)
[2019-08-14] MEDS: Heparin VIAL(*) 5000 UNITS/ML VIAL (FIVE THOUSAND) SUBCUT SCH ×3 (06:00→22:07)
[2019-08-14 06:27] LABS: BUN/Creatinine Ratio 12.5 (8-20); Calcium 8.3 mg/dL (8.6-10.3); EGFR African American 149.1 (>60); EGFR Non-African American 123.2 (>60); Potassium 3.7 mmol/L (3.5-5.0)
[2019-08-14] MEDS: Cetirizine* 10 MG TAB PO SCH (08:30)
[2019-08-14] MEDS: Famotidine IV* 10 MG/ML 2 ML (20 mg) IV SLOW PU SCH ×2 (08:30→20:28)
[2019-08-14] MEDS ORDERED: Iohexol 300* (CONTRAST) 10 ML SDV IV ONE (09:00)
--- NOTE | 2019-08-14 09:28 | PN ---
Progress Note - Progress Note Date of Service: 08/14/19 SOAP: Subjective: Minimal oral intake yesterday Became distended last night-little ostomy output Nausea without vomiting Voiding well Increased discomfort Objective: Temp Pulse Resp BP Pulse Ox 98.6 F 58 16 108/55 100 08/14/19 07:31 08/14/19 07:31 08/14/19 08:00 08/14/19 07:31 08/14/19 07:31 Intake & Output 08/12/19 08/13/19 08/14/19 08/15/19 06:59 06:59 06:59 06:59 Intake Total 4561 4478 2830 Output Total 4520 3155 2750 Balance 41 1323 80 Intake: IV Fluids 3901 2846 1960 LR 3901 1961 1960 NS (0.9%) 885 IVPB 600 1052 LR 500 NS (0.9%) 1052 tylenol 100 Oral 0 580 870 NG Tube Irrigate Amount 60 Output: NG Tube Drainage Amount 750 50 G Tube 300 Urine 700 1305 2175 Ileostomy 3070 1500 575 Other: Estimated Void Medium Medium # Bowel Movements 1 0 Estimated Stool Amount Large # Voids 2 2 2 PEX: Comfortable-awake and alert Lungs are clear Cor is RRR Abd is firm and distended and tympanitic. Few bowel sounds present, incision is CDI. Ostomy RLQ is edematous and darker in color, viable--digitized without difficulty. Mild generalized pain, no peritoneal signs Ext without edema Laboratory Results - last 24 hr 08/13/19 08/14/19 04:21 06:00 Sodium 135 Potassium 3.7 Chloride 101 Carbon Dioxide 27 Anion Gap 7 BUN 10 Creatinine 0.80 Est GFR ( Amer) 149.1 Est GFR (Non-Af Amer) 123.2 BUN/Creatinine Ratio 12.5 Glucose 97 Calcium 8.3 L Hepatitis A IgM Ab Negative Hep Bs Antigen Nonreactive Hep B Core IgM Ab Nonreactive Hepatitis C Antibody Negative Hepatitis C Ab Index 0.01 Assessment: POD# 7 s/p sigmoid colon resection with diverting loop ileostomy for sigmoid volvulus Ileus ?--recurrent abdominal distension and nausea after starting po again yesterday. Plan: Discussed with patient and both parents at the bedside this AM--Not certain reason for recurrent distension and nausea after having large amounts of bilious fluid from ostomy on Monday and Monday. Possibilities include persistent adynamic ileus and motility issues, mechanical problem with ostomy ( ? twist at fascial level), and anastomotic leak and these possibilities need to be evaluated at this point. Will proceed with CT abd/pelvis this morning-he is reluctant to take oral contrast and with his distension and nausea will give only IV contrast. Keep NPO for now and continue IV fluids and await CT scan.
[2019-08-14] MEDS: oxyCODONE TAB* 5 MG TAB PO PRN (10:22)
[2019-08-14] MEDS: HYDROmorphone INJ* 0.5 MG/0.5 ML SYRINGE IV SLOW PU PRN (17:08)
--- NOTE | 2019-08-14 18:10 | PN ---
Progress Note - Progress Note Date of Service: 08/14/19 Note: Events of day reviewed with patient and parents: CT shows dilated stomach and small bowel-colon not distended, no obvious abscess , free air or fluid collection in pelvis Gastrograffin enema with small amount of contrast under low pressure shows no obvious contrast extravasation, probable narrowing at anastomosis He has had minimal output from ileostomy over the day, having some nausea but no vomiting. He remains afebrile with HR in the 60's PEX: Abd remains distended and somewhat firm-ostomy is darker red and edematous, no bowel sounds present. I digitalized proximal loop of ileostomy without difficulty (no obvious torsion or narrowing) and passed an 18 F chambers catheter into the hub without difficulty and expressed about 100 cc of bilious fluid and some gas-catheter left in position and secured to appliance. I do not believe there is an anastomotic leak both clinically and radiologically and I think the ostomy remains patent and functioning. Suspect prolonged ileus and we will continue with minimal po, IVF and close observation. All of the above discussed with family. Will check labs in AM Further studies as indicated.
[2019-08-15] MEDS: Lactated Ringers 1000 ML Bag* 1,000 ML IV SCH ×3 (04:07→17:34)
[2019-08-15 05:54] LABS: ABS Basophils 0.1 10^3/ul (0-0.2); ABS Eosinophils 0.3 10^3/ul (0-0.6); ABS Lymphocytes 2.1 10^3/ul (1.0-4.8); ABS Monocytes 0.8 10^3/ul (0-0.8); ABS Neutrophils 4.2 10^3/ul (1.5-7.7); Eosinophil % 3.7 %; Hematocrit 37 % (42-52); Hemoglobin 12.5 g/dL (14.0-18.0); Lymphocyte % 28.2 %; Mean Corpuscular HGB Conc 34 g/dL (31-36); Mean Corpuscular Hemoglobin 30 pg (27-31); Mean Corpuscular Volume 88 fL (80-94); Mean Platelet Volume 7.2 fL (7.4-10.4); Platelet Count 365 10^3/uL (150-450); Red Blood Count 4.13 10^6 /uL (4.18-5.48); Red Cell Distribution Width 13 % (10-15); White Blood Count 7.5 10^3/uL (3.5-10.8)
[2019-08-15 06:15] LABS: Albumin 2.9 g/dL (3.2-5.2); Albumin/Globulin Ratio 1.5 (1-3); BUN/Creatinine Ratio 9.7 (8-20); Calcium 8.1 mg/dL (8.6-10.3); EGFR African American 168.4 (>60); EGFR Non-African American 139.2 (>60); Potassium 3.7 mmol/L (3.5-5.0); Total Bilirubin 0.6 mg/dL (0.2-1.0); Total Protein 4.9 g/dL (6.4-8.9)
[2019-08-15] MEDS: Heparin VIAL(*) 5000 UNITS/ML VIAL (FIVE THOUSAND) SUBCUT SCH ×3 (06:19→22:41)
--- NOTE | 2019-08-15 08:22 | PN ---
Progress Note - Progress Note Date of Service: 08/15/19 SOAP: Subjective: Large amount of bilious fluid out of ostomy overnight Much less distended, minimal pain No N/V, ambulated in halls Objective: Temp Pulse Resp BP Pulse Ox 97.7 F 60 16 106/57 98 08/15/19 03:39 08/15/19 03:39 08/15/19 03:39 08/15/19 03:39 08/15/19 03:39 Intake & Output 08/13/19 08/14/19 08/15/19 08/16/19 06:59 06:59 06:59 06:59 Intake Total 4478 2830 2080 Output Total 3155 2750 3450 Balance 1323 80 -1370 Intake: IV Fluids 2846 1959 1960 LR 1960 1959 1959 NS (0.9%) 885 IVPB 1052 NS (0.9%) 1052 Oral 580 870 120 Output: NG Tube Drainage Amount 50 G Tube 300 Urine 1305 2175 1025 Ileostomy 6922 233 1403 Other: Estimated Void Medium Medium # Bowel Movements 0 # Voids 2 2 2 PEX: Comfortable-fatigued Lungs are clear Cor is RRR Abd is soft and non-distended. Few bowel sounds, very hypoactive--incision CDI Ostomy is edematous and dark red, large amount of dark bilious fluid in bag Ext without edema Laboratory Results - last 24 hr 08/15/19 08/15/19 05:41 05:41 WBC 7.5 RBC 4.13 L Hgb 12.5 L Hct 37 L MCV 88 MCH 30 MCHC 34 RDW 13 Plt Count 365 MPV 7.2 L Neut % (Auto) 55.7 Lymph % (Auto) 28.2 [place] % (Auto) 11.3 Eos % (Auto) 3.7 Baso % (Auto) 1.1 Absolute Neuts (auto) 4.2 Absolute Lymphs (auto) 2.1 Absolute Monos (auto) 0.8 Absolute Eos (auto) 0.3 Absolute Basos (auto) 0.1 Absolute Nucleated RBC 0.0 Nucleated RBC % 0.0 Sodium 135 Potassium 3.7 Chloride 103 Carbon Dioxide 25 Anion Gap 7 BUN 7 Creatinine 0.72 Est GFR ( Amer) 168.4 Est GFR (Non-Af Amer) 139.2 BUN/Creatinine Ratio 9.7 Glucose 78 Calcium 8.1 L Total Bilirubin 0.60 AST 53 H ALT 69 H Alkaline Phosphatase 46 Total Protein 4.9 L Albumin 2.9 L Globulin 2.0 Albumin/Globulin Ratio 1.5 Prealbumin 12 L Assessment: POD# 8 s/p sigmoid colon resection with diverting loop ileostomy for sigmoid volvulus Ileus-appears to be resolving Plan: Sips of clears Ostomy care Consider TPN in next 24-48 hrs if continued poor oral intake--pre-albumin noted. Subq heparin, PPI Continue IVF All care discussed this morning with patient's father at bedside.
[2019-08-15] MEDS: Cetirizine* 10 MG TAB PO SCH (09:27)
[2019-08-15] MEDS: Famotidine IV* 10 MG/ML 2 ML (20 mg) IV SLOW PU SCH ×2 (09:27→22:41)
[2019-08-16 05:41] LABS: ABS Basophils 0.1 10^3/ul (0-0.2); ABS Eosinophils 0.3 10^3/ul (0-0.6); ABS Lymphocytes 2.2 10^3/ul (1.0-4.8); ABS Monocytes 0.7 10^3/ul (0-0.8); ABS Neutrophils 3.6 10^3/ul (1.5-7.7); Hematocrit 36 % (42-52); Hemoglobin 12.4 g/dL (14.0-18.0); Lymphocyte % 31.6 %; Mean Corpuscular HGB Conc 34 g/dL (31-36); Mean Corpuscular Hemoglobin 30 pg (27-31); Mean Corpuscular Volume 88 fL (80-94); Mean Platelet Volume 7.4 fL (7.4-10.4); Nucleated Red Blood Cells % 0.1; Platelet Count 398 10^3/uL (150-450); Red Blood Count 4.08 10^6 /uL (4.18-5.48); Red Cell Distribution Width 13 % (10-15); White Blood Count 6.8 10^3/uL (3.5-10.8)
[2019-08-16 06:00] LABS: Calcium 8.6 mg/dL (8.6-10.3); EGFR African American 160.7 (>60); EGFR Non-African American 132.8 (>60); Potassium 3.9 mmol/L (3.5-5.0)
--- NOTE | 2019-08-16 06:07 | PN ---
Hospitalist Progress Note Date of Service: 08/16/19 Paged for 300ml of dark stool and blood in ileostomy. Patient asymptomatic and hemodynamically stable. Stopped Heparin. CBC ordered for this AM did not show a drop in H/H.
[2019-08-16] MEDS: Lactated Ringers 1000 ML Bag* 1,000 ML IV SCH (06:08)
[2019-08-16] MEDS: Famotidine IV* 10 MG/ML 2 ML (20 mg) IV SLOW PU SCH ×2 (08:44→21:03)
[2019-08-16] MEDS: Cetirizine* 10 MG TAB PO SCH (08:50)
--- NOTE | 2019-08-16 10:58 | PN ---
Progress Note - Progress Note Date of Service: 08/16/19 SOAP: Subjective: He tolerated small amounts of clear liquids yesterday including clear Ensure No abdominal distension No N/V Minimal pain Some bloody fluid in bag overnight, now has cleared Objective: Temp Pulse Resp BP Pulse Ox 97.2 F 51 16 104/57 100 08/16/19 07:26 08/16/19 07:26 08/16/19 09:52 08/16/19 07:26 08/16/19 07:26 Intake & Output 08/14/19 08/15/19 08/16/19 08/17/19 06:59 06:59 06:59 06:59 Intake Total 2830 2080 4025 Output Total 2750 3450 5675 Balance 80 -1370 -1650 Intake: IV Fluids 1959 1959 2845 LR 1960 1960 2845 IVPB 980 LR 980 Oral 870 120 200 Output: Urine 2175 1025 4850 Ileostomy 575 2425 825 Other: Estimated Void Medium Medium # Bowel Movements 0 Estimated Stool Amount Small Other Amount Description 1400 I&O previously documented # Voids 2 2 PEX: Comfortable Lungs are clear Cor is RRR Abd is soft and non-distended. Few bowel sounds present by hypoactive. Incision CDI Ostomy is edematous and dark red in color. Dark bilious fluid in bag Ext without edema Laboratory Results - last 24 hr 08/16/19 08/16/19 05:15 05:15 WBC 6.8 RBC 4.08 L Hgb 12.4 L Hct 36 L MCV 88 MCH 30 MCHC 34 RDW 13 Plt Count 398 MPV 7.4 Neut % (Auto) 52.5 Lymph % (Auto) 31.6 [place] % (Auto) 10.8 Eos % (Auto) 4.0 Baso % (Auto) 1.1 Absolute Neuts (auto) 3.6 Absolute Lymphs (auto) 2.2 Absolute Monos (auto) 0.7 Absolute Eos (auto) 0.3 Absolute Basos (auto) 0.1 Absolute Nucleated RBC 0.0 Nucleated RBC % 0.1 Sodium 137 Potassium 3.9 Chloride 104 Carbon Dioxide 29 Anion Gap 4 BUN 6 Creatinine 0.75 Est GFR ( Amer) 160.7 Est GFR (Non-Af Amer) 132.8 BUN/Creatinine Ratio 8.0 Glucose 90 Calcium 8.6 Assessment: POD# 9 s/p sigmoid colectomy with diverting loop ileostomy for sigmoid volvulus Ileus Sanguinous fluid in bag overnight-appears to have stopped, suspect secondary to irritation from tube in small bowel at stoma Plan: He tolerated liquids yesterday--no distension or nausea-had tentatively planned PICC line for TPN but hopefully he will be able to take more po so will hold on PICC/TPN for now and see how he does over the weekend. Full liquids Decrease IVF Hold subq heparin for now secondary to bleeding at ostomy site-H/H stable Pepcid Ostomy care All care discussed with patient and parents at bedside this morning.
[2019-08-16] MEDS: D5LR 20 MEQ KCL 1000 ML BAG* 1,000 ML IV SCH (11:26)
[2019-08-17] MEDS: D5LR 20 MEQ KCL 1000 ML BAG* 1,000 ML IV SCH (00:48)
[2019-08-17] MEDS ORDERED: NS 0.9% 1000 ML** 1,000 ML IV ONE (04:34)
[2019-08-17 06:04] LABS: CO2 Carbon Dioxide 24 mmol/L (22-32); Calcium 8.6 mg/dL (8.6-10.3); Chloride 106 mmol/L (101-111); Sodium 135 mmol/L (135-145)
[2019-08-17 06:10] LABS: BUN/Creatinine Ratio 5.6 (8-20); Blood Urea Nitrogen 5 mg/dL (6-24); EGFR African American 130.2 (>60); EGFR Non-African American 107.6 (>60); Glucose 92 mg/dL (70-100)
[2019-08-17 06:12] LABS: Anion Gap 5 mmol/L (2-11)
[2019-08-17] MEDS: Cetirizine* 10 MG TAB PO SCH (09:15)
[2019-08-17] MEDS: Famotidine IV* 10 MG/ML 2 ML (20 mg) IV SLOW PU SCH ×2 (09:15→21:11)
--- NOTE | 2019-08-17 10:45 | PN ---
Progress Note - Progress Note Date of Service: 08/17/19 SOAP: Subjective: Doing well--tolerating full liquids without N/V Some bilious fluid in bag Ambulating in halls No pain Objective: Temp Pulse Resp BP Pulse Ox 97.7 F 55 14 101/56 100 08/17/19 07:21 08/17/19 07:21 08/17/19 07:21 08/17/19 07:21 08/17/19 07:21 Intake & Output 08/15/19 08/16/19 08/17/19 08/18/19 06:59 06:59 06:59 06:59 Intake Total 2080 4025 3642 337 Output Total 3450 5675 3905 650 Balance -1370 -1650 -263 -313 Intake: IV Fluids 1960 2845 3042 337 D5W LR 20 meq KCL 1283 337 LR 1960 2845 769 NS (0.9%) 990 IVPB 980 LR 980 Oral 120 200 600 Output: Urine 1025 4850 2930 500 [place] 200 Ileostomy 2425 825 775 150 Other: Estimated Void Medium Small Estimated Stool Amount Small Other Amount Description 1400 I&O previously documented # Voids 2 1 PEX: Comfortable Lungs are clear Cor is RRR Abd is soft and non-distended. Few bowel sounds present but hypoactive. Incision CDI and gustavo removed. Ostomy appliance replaced-stoma pink and less edematous. Ext without edema Laboratory Results - last 24 hr 08/17/19 08/17/19 05:33 06:57 Sodium 135 Potassium TNP 4.4 Chloride 106 Carbon Dioxide 24 Anion Gap 5 BUN 5 L Creatinine 0.90 Est GFR ( Amer) 130.2 Est GFR (Non-Af Amer) 107.6 BUN/Creatinine Ratio 5.6 L Glucose 92 Calcium 8.6 Assessment: S/P open sigmoid colon resection with diverting loop ileostomy for sigmoid volvulus Ileus-appears to be improving Plan: Full liquids Saline lock IVF Ostomy appliance changed and gustavo removed today PPI-heparin on hold for bleeding at ostomy site mucosa Increase activity All discussed with mother and patient.
[2019-08-18] MEDS: Famotidine IV* 10 MG/ML 2 ML (20 mg) IV SLOW PU SCH ×2 (08:49→20:49)
[2019-08-18] MEDS: Cetirizine* 10 MG TAB PO SCH (08:49)
--- NOTE | 2019-08-18 09:39 | PN ---
Progress Note - Progress Note Date of Service: 08/18/19 SOAP: Subjective: Doing well-tolerating po without N/V Gas and bilious fluid output from ostomy No pain Ambulating Objective: Temp Pulse Resp BP Pulse Ox 98.5 F 72 14 95/52 100 08/18/19 08:48 08/18/19 08:48 08/18/19 08:48 08/18/19 08:48 08/18/19 08:48 Intake & Output 08/16/19 08/17/19 08/18/19 08/19/19 06:59 06:59 06:59 06:59 Intake Total 4025 3642 1267 Output Total 5675 3905 3405 1850 Balance -6559 -111 -2138 -3930 Intake: IV Fluids 2845 3042 337 D5W LR 20 meq KCL 1283 337 LR 2845 769 NS (0.9%) 990 IVPB 980 LR 980 Oral 200 600 930 Output: Urine 4850 2930 2655 1300 Gardner 200 Ileostomy 825 775 750 550 Other: Estimated Void Small # Bowel Movements 1 Estimated Stool Amount Small Medium Other Amount Description 1400 I&O previously documented # Voids 1 1 PEX: Comfortable Lungs are clear Abd is soft and non-distended. Hypoactive bowel sounds present throughout. Ostomy pink with bilious fluid in bag Ext without edema No labs Assessment: POD# 11 s/p open sigmoid resection with diverting loop ileostomy for sigmoid volvulus Ileus-resolving Plan: Continue to advance diet as tolerated-he wants to continue with full liquids with supplements Ostomy care Plan discharge tomorrow 08/19 All discussed with patient and mother.
[2019-08-19 08:06] VITALS: BP 100/57
[2019-08-19] MEDS: Famotidine IV* 10 MG/ML 2 ML (20 mg) IV SLOW PU SCH (08:10)
[2019-08-19] MEDS: Cetirizine* 10 MG TAB PO SCH (08:10)
--- NOTE | 2019-08-19 09:58 | PN ---
Progress Note - Progress Note Date of Service: 08/19/19 SOAP: Subjective: Doing well-tolerating fulls No N/V Ostomy functioning well Objective: Temp Pulse Resp BP Pulse Ox 98.7 F 55 16 100/57 99 08/19/19 08:06 08/19/19 08:06 08/19/19 08:06 08/19/19 08:06 08/19/19 08:06 Intake & Output 08/17/19 08/18/19 08/19/19 08/20/19 06:59 06:59 06:59 06:59 Intake Total 3642 1267 120 Output Total 3905 3405 5325 Balance -081 -2533 -0412 Intake: IV Fluids 3042 337 D5W LR 20 meq KCL 1283 337 LR 769 NS (0.9%) 990 Oral 600 930 120 Output: Urine 2930 2655 4025 [place] 200 Ileostomy 180 279 9936 Other: Estimated Void Small Date of Last Bowel 08/19/2019 Movement # Bowel Movements 1 1 Estimated Stool Amount Medium # Voids 1 1 PEX: Comfortable Lungs are clear Abd is soft and non-distended. Small amount of bilious fluid in bag Bowel sounds present Assessment: S/P sigmoid resection with diverting ileostomy for sigmoid volvulus Ileus-resolved Plan: DC home today Ostomy care Office follow up All care discussed with patient's mother
== END 2019-08-19 10:25 | disposition home or self-care (01) | DRG 330 ==
LOC: ED 15:02 → SSU 23:18
PROVIDERS: ADMIT Internal Medicine; ATTEND Surgery
PROC: 0D9N80Z Drainage of Sigmoid Colon with Drainage Device, Via Natural or Artificial Opening Endoscopic (ICD-10-PCS; 2019-08-06)
PROC: 0D1B0Z4 Bypass Ileum to Cutaneous, Open Approach (ICD-10-PCS; 2019-08-07)
PROC: 0DTN0ZZ Resection of Sigmoid Colon, Open Approach (ICD-10-PCS; principal; 2019-08-07 15:15)
DX: K56.2 Volvulus (principal); F84.5 Asperger's syndrome; E87.1 Hypo-osmolality and hyponatremia; K21.9 Gastro-esophageal reflux disease without esophagitis; J45.909 Unspecified asthma, uncomplicated; L30.9 Dermatitis, unspecified; E87.6 Hypokalemia; D72.829 Elevated white blood cell count, unspecified; K59.00 Constipation, unspecified; F45.8 Other somatoform disorders; D64.9 Anemia, unspecified; R74.8 Abnormal levels of other serum enzymes; K56.7 Ileus, unspecified
CPT/HCPCS: 36415; 74018; 74177; 74270; 80048; 80053; 80074; 80076; 81003; 82272; 83540; 83550; 83605; 83690; 83735; 84134; 84443; 85014; 85018; 85025; 85610; 85730; 86140; 88307; 96374; 96375; 96376; 99156; 99157; 99284; A9270-GY; C1776; J0330; J0694; J1100; J1170; J1240; J1644; J1885; J2250; J2270; J2405; J2704; J2765; J3010; J3490; Q9967

== ENCOUNTER 2019-08-21 10:18 | Inpatient (IN) | payer OTHER ==
--- OUTSIDE RECORDS SUMMARY | 2019-08-21 10:31 | XMS REPORT ---
:2000 Author Organization [facility] Care Team Providers Name Role Phone Unavailable Unavailable Unavailable Problems Condition Condition Condition Status Onset Resolution Last Treating Comments Name Details Category Date Date Treatment Clinician Date Ileus, Ileus, Diagnosis Active 2020-0 Kiki unspecified unspecified 2-19 Conde Ileostomy Ileostomy Diagnosis Active 2020-0 Kiki status status 2-19 Conde Elevated Elevated Diagnosis Active 2020-0 Kiki white blood white blood 2-19 Conde cell count, cell count, unspecified unspecified Abnormal Abnormal Diagnosis Active 2020-0 Kiki levels of levels of 2-19 Conde other serum other serum enzymes enzymes Allergies, Adverse Reactions, Alerts Allergy Allergy Status Severity Reaction(s) Onset Inactive Treating Comments Name Type Date Date Clinician Unknown None Active Unknown None Unknown No Known Allergies For This Patient Medications Ordered Filled Start Stop Current Ordering Indication Dosage Frequency Signature Comments Components Medication Medication Date Date Medication? Clinician (SIG) Name Name No Known No Known No None None None Medications Medications For This For This Patient Patient Procedures This patient has no known procedures. Results This patient has no known results.
--- OUTSIDE RECORDS SUMMARY | 2019-08-21 10:31 | XMS REPORT ---
:2000 Author Organization [facility] Care Team Providers Name Role Phone Unavailable Unavailable Unavailable Problems Condition Condition Condition Status Onset Resolution Last Treating Comments Name Details Category Date Date Treatment Clinician Date Ileus, Ileus, Diagnosis Active 2019-0 Kiki unspecified unspecified 2-19 Conde Ileostomy Ileostomy [...]
[2019-08-21 11:47] LABS: ABS Basophils 0.1 10^3/ul (0-0.2); ABS Lymphocytes 1.1 10^3/ul (1.0-4.8); ABS Monocytes 0.7 10^3/ul (0-0.8); ABS Neutrophils 8.4 10^3/ul (1.5-7.7); Eosinophil % 0.3 %; Hematocrit 45 % (42-52); Hemoglobin 15.6 g/dL (14.0-18.0); Lymphocyte % 10.7 %; Mean Corpuscular HGB Conc 34 g/dL (31-36); Mean Corpuscular Hemoglobin 31 pg (27-31); Mean Corpuscular Volume 90 fL (80-94); Mean Platelet Volume 7.3 fL (7.4-10.4); Platelet Count 588 10^3/uL (150-450); Red Blood Count 5.06 10^6 /uL (4.18-5.48); Red Cell Distribution Width 14 % (10-15); White Blood Count 10.2 10^3/uL (3.5-10.8)
--- NOTE | 2019-08-21 11:50 | ED ---
Complex/Multi-Sys Presentation - HPI Summary HPI Summary: 19 year old M presenting to [facility] accompanied by parents complains of lack of output for the past 12 hours following an ileostomy two weeks ago for which he was discharged on 08/18/2019 for. NG tube was used for a couple of days. Patient 's parents state he was distended and that they could hear dripping in his ileum. Patient reports pain, nausea, and dry heaving. His last meal was pureed chicken last night and he had some water this morning at 0730. He lost 12 pounds from not eating a couple weeks ago. Patient takes pepsin routinely. Tylenol and zophran use this morning noted. Patient denies fever. The patient rates the pain 5/10 in severity. Symptoms aggravated by nothing. Symptoms alleviated by nothing. Medications reviewed. Allergies noted. Home Medications Medication Instructions Recorded Confirmed Type Loratadine [Claritin 10 MG CAP] 10 mg PO DAILY 04/09/18 08/06/19 History - History Of Current Complaint Chief Complaint: EDAbdPain Time Seen by Provider: 08/21/19 11:33 Hx Obtained From: Patient Onset/Duration: Lasting Hours, Still Present Timing: Constant Aggravating Factor(s): nothing Alleviating Factor(s): nothing Associated Signs And Symptoms: Positive: Nausea, Other - positive - lack of ileum output for 12 hours, distension, dry heaving. Negative: Fever - Allergies/Home Medications Allergies/Adverse Reactions: Allergies Allergy/AdvReac Type Severity Reaction Status Date / Time No Known Allergies Allergy Verified 08/21/19 10:24 Home Medications: Home Medications Loratadine [Claritin 10 MG CAP] 10 mg PO DAILY 04/09/18 [History Confirmed 08/21] PMH/Surg Hx/FS Hx/Imm Hx Endocrine/Hematology History: Denies: Hx Diabetes Cardiovascular History: Denies: Hx Coronary Artery Disease Respiratory History: Reports: Hx Asthma - 10 years ago GI History: Reports: Hx Gastroesophageal Reflux Disease, Other GI Disorders - HX OF BOWEL OBSTRUCTION Sensory History: Reports: Hx Contacts or Glasses Denies: Hx Hearing Aid Opthamlomology History: Reports: Hx Contacts or Glasses Psychiatric History: Reports: Other Psychiatric Issues/Disorders - Aspberger's - Surgical History Surgical History: Yes Surgery Procedure, Year, and Place: ileostomy, 2019 Infectious Disease History: No Infectious Disease History: Denies: Traveled Outside the [place] in Last 30 Days - Family History Known Family History: Positive: Diabetes - Social History Alcohol Use: None Hx Substance Use: No Substance Use Type: Reports: None Hx Tobacco Use: No Smoking Status (MU): Never Smoked Tobacco Review of Systems Negative: Fever Positive: Nausea, Other - lack of ileum output for 12 hours, distension, dry heaving All Other Systems Reviewed And Are Negative: Yes Physical Exam - Summary Physical Exam Summary: Constitutional: Well-developed, Well-nourished, Alert. (-) Distressed Skin: Warm, Dry HENT: Normocephalic; Atraumatic Eyes: Conjunctiva normal Neck: Musculoskeletal ROM normal neck. (-) JVD, (-) Stridor, (-) Tracheal deviation Cardio: Rhythm regular, rate normal, Heart sounds normal; Intact distal pulses; Radial pulses are 2+ and symmetric. (-) Murmur Pulmonary/Chest wall: Effort normal. (-) Respiratory distress, (-) Wheezes, (-) Rales Abd: Soft, (-) tenderness, (-) Distension, (-) Guarding, (-) Rebound Musculoskeletal: (-) Edema Lymph: (-) Cervical adenopathy Neuro: Alert, Oriented x3 Psych: Mood and affect Normal GIGU: ostomy present with small amount of liquid output Triage Information Reviewed: Yes Vital Signs On Initial Exam: Initial Vitals Temp Pulse Resp BP Pulse Ox 98.7 F 70 18 115/71 96 08/21/19 10:20 08/21/19 10:20 08/21/19 10:20 08/21/19 10:20 08/21/19 10:20 Vital Signs Reviewed: Yes Procedures - Sedation Patient Received Moderate/Deep Sedation with Procedure: No Diagnostics - Vital Signs Vital Signs Temp Pulse Resp BP Pulse Ox 08/21/19 10:20 98.7 F 70 18 115/71 96 - Laboratory Result Diagrams: 08/21/19 11:38 08/21/19 11:38 Lab Statement: Any lab studies that have been ordered have been reviewed, and results considered in the medical decision making process. - Radiology Abd x-ray Radiology Interpretation Completed By: Radiologist Summary of Radiographic Findings: IMPRESSION: The constellation of findings is most suggestive of postoperative ileus. A far distal. small bowel obstruction is not excluded. has reviewed this report. Complex Multi-Symp Course/Dx Course Of Treatment: Patient is here with decreased output from his ostomy. Patient had blood work performed which was grossly unremarkable. Patient was evaluated by surgery who admitted the patient. - Diagnoses Provider Diagnoses: Abdominal pain, Postoperative complication - Physician Notifications Discussed Care Of Patient With: Og Jones - admit Instructed by Provider To: Admit As Inpatient Discharge ED - Sign-Out/Discharge Documenting (check all that apply): Patient Departure - admit - Discharge Plan Condition: Stable Disposition: ADMITTED TO [facility] - Billing Disposition and Condition Condition: STABLE Disposition: Admitted to [facility] - Attestation Statements Document Initiated by Kirillibe: Yes Documenting Scribe: Andrea Machuca Provider For Whom Goldie is Documenting (Include Credential): Anastacio Parisi MD Scribe Attestation: Andrea Brown, scribed for Anastacio Parisi MD on 08/21/19 at 1818. Scribe Documentation Reviewed: Yes Provider Attestation: The documentation as recorded by the Andrea hussein accurately reflects the service I personally performed and the decisions made by Anastacio castellanos MD Status of Scribe Document: Viewed
[2019-08-21 12:11] LABS: ALT 68 U/L (7-52); AST 25 U/L (13-39); Albumin 5.6 g/dL (3.2-5.2); Albumin/Globulin Ratio 1.7 (1-3); Alkaline Phosphatase 77 U/L (34-104); Anion Gap 11 mmol/L (2-11); Blood Urea Nitrogen 14 mg/dL (6-24); CO2 Carbon Dioxide 25 mmol/L (22-32); Calcium 10.7 mg/dL (8.6-10.3); Chloride 94 mmol/L (101-111); EGFR African American 105.5 (>60); EGFR Non-African American 87.2 (>60); Globulin 3.3 g/dL (2-4); Glucose 98 mg/dL (70-100); Sodium 130 mmol/L (135-145); Total Protein 8.9 g/dL (6.4-8.9)
[2019-08-21] MEDS ORDERED: Morphine 4 MG/ML VIAL (1 ml) 4 MG/ML VIAL IV ONE (12:30)
[2019-08-21] MEDS ORDERED: HYDROmorphone INJ* 0.5 MG/0.5 ML SYRINGE IV SLOW PU PRN (13:19)
[2019-08-21] MEDS ORDERED: NS 0.9% 1000 ML** 1,000 ML IV ONE (13:19)
[2019-08-21] MEDS: Ondansetron INJ* 2 MG/ML VIAL IV PRN (14:23)
[2019-08-21] MEDS: NS 0.9% 1000 ML** 1,000 ML IV SCH ×2 (16:36→23:37)
--- NOTE | 2019-08-21 16:52 | HP ---
H&P (Free Text) History and Physical: History and Physical General Surgery Diagnosis: SBO Chief Complaint: Decreased output ileostomy, Abdominal pain HPI: 19yo male discharged home 08/19/2019 after 13 day admission for a sigmoid volvulous, now POD 14 S/P Laparotomy, Sigmoid Colectomy, diverting loop ileostomy by Dr Jones. Bowel function return was slow, patient had a significant ileus post operatively, with intermittent episodes of high output then low output from ileostomy. All had resolved, and patient was d/c'd home in stable condition on 08/19/2019. Once home, Ostomy output decreased significantly and abdomen became markedly distended. Patient returned to the Emergency Department PMH: GERD, Asthma, Asberger's, Eczema PSH: Sigmoid colectomy, EGD SOCIAL HX: TOB neg ETOH neg DRUGS neg FAMILY HISTORY: no family hx of any bowel disease, parents both healthy ALLERGIES: NKDA MEDICATIONS: no blood thinners see attached MAR for reg home meds ROS: Other than as per HPI a 14 point Review of Systems was negative PHYSICAL EXAM: VS: Temp Pulse Resp BP Pulse Ox 98.9 F 58 14 120/67 100 08/21/19 16:48 08/21/19 16:48 08/21/19 16:48 08/21/19 16:48 08/21/19 16:48 HEENT: NCAT, neck supple. Trachea in midline, no JVD EOMI CHEST: CTA B/L CVS: RRR ABD: + Distended, Tympanic, Hypoactive BS's Right side, Normal on Left side + Fluid in ileostomy appliance, Stoma red and healthy looking M/S: Moves all extremities through a full range of motion SKIN: no lesions NEURO: seat covers trimmer grossly normal PSYCH: Alert and Oriented LABS: Laboratory Tests 08/21/19 08/21/19 11:38 11:38 WBC 10.2 Hgb 15.6 Hct 45 Plt Count 588 H D Sodium 130 L Potassium 5.0 Chloride 94 L Carbon Dioxide 25 Anion Gap 11 BUN 14 Creatinine 1.08 Est GFR (Non-Af Amer) 87.2 RESULTS: Patient Name: THEO ELI Medical Record#: [id number] Ordering Physician: Anastacio Parisi MD Acct.#: [id number] : 2000 Age: 19 Sex: M Location: EMERGENCY DEPARTMENT Exam Date: 08/21/19 1147 ADM Status: REG ER Order Information: ABDOMEN (COMPLETE) 2 VWS Accession Number: [id number] CPT: 64076 Indication: Concern for bowel obstruction. Post sigmoid colon resection due to redundancy and ileostomy August 07, 2019. Comparison: August 14, 2019 CT Technique: Supine and upright views of the abdomen. Report: #. Long segment severe small bowel dilatation with air-fluid levels. RIGHT lower quadrant ileostomy noted. No transition point or decompressed loops of small bowel visualized. #. Residual stool and contrast at the pelvic cecum. #. Moderate gastric distention with gas and fluid. #. Negative for free air. #. Negative for central displacement of the bowel loops to suggest ascites. #. Clear visualized lung bases. IMPRESSION: #. The constellation of findings is most suggestive of postoperative ileus. A far distal small bowel obstruction is not excluded. <Electronically signed by Sergio García MD in OV> 08/21/19 1303 Dictated By: Sergio García MD Dictated Date/Time: 08/21/19 1256 Transcribed Date/Time: 08/21/19 1256 Copy to: ASSESSMENT: 19 yo male with above history, now with signs and symptoms consistent with a post op ileus, possible but less likely sbo PLAN: Bolus 1 litre IV Fluids then 150cc /hr, NPO, PICC line for TPN for Nutritional support, AM Labs, Observation, Possible dye study through ileostomy Will D/W Dr Jones. Please see progress note from Dr Martin for further orders/plans
--- NOTE | 2019-08-21 17:05 | PN ---
Progress Note - Progress Note Date of Service: 08/21/19 Note: Patient seen and examined in the ER at 1300 today History reviewed with patient's parents Labs and AXR reviewed Suspect ileus, less likely SBO but must also rule out other causes of distension , i.e. anastomotic problems. Will admit IVF NPO TPN tomorrow Consider further diagnostic testing-? CT Care discussed with parents and patient.
[2019-08-21] MEDS: Ketorolac INJ* 30 MG/ML 1 ML VIAL IV PRN (21:28)
[2019-08-22 06:22] LABS: ABS Eosinophils 0.1 10^3/ul (0-0.6); ABS Lymphocytes 1.3 10^3/ul (1.0-4.8); ABS Monocytes 0.7 10^3/ul (0-0.8); ABS Neutrophils 3.3 10^3/ul (1.5-7.7); Eosinophil % 1.6 %; Hematocrit 37 % (42-52); Hemoglobin 12.3 g/dL (14.0-18.0); Lymphocyte % 24.5 %; Mean Corpuscular HGB Conc 34 g/dL (31-36); Mean Corpuscular Hemoglobin 30 pg (27-31); Mean Corpuscular Volume 90 fL (80-94); Mean Platelet Volume 7.1 fL (7.4-10.4); Nucleated Red Blood Cells % 0.1; Platelet Count 461 10^3/uL (150-450); Red Blood Count 4.04 10^6 /uL (4.18-5.48); Red Cell Distribution Width 13 % (10-15); White Blood Count 5.4 10^3/uL (3.5-10.8)
[2019-08-22 06:53] LABS: Calcium 8.6 mg/dL (8.6-10.3); Potassium 4.3 mmol/L (3.5-5.0)
[2019-08-22] MEDS: NS 0.9% 1000 ML** 1,000 ML IV SCH ×4 (06:54→23:22)
[2019-08-22 06:58] LABS: BUN/Creatinine Ratio 18.8 (8-20); EGFR Non-African American 114.9 (>60)
[2019-08-22] MEDS ORDERED: NS 0.9% 1000 ML** 1,000 ML IV ONE (08:00)
--- NOTE | 2019-08-22 11:09 | PN ---
Progress Note - Progress Note Date of Service: 08/22/19 SOAP: Subjective: Patient seen initially at 0800 this morning and again this afternoon at 1700 Care discussed with his father who spent the night Discussed with mother this afternoon No nausea or vomiting Tolerating ice chips Bilious fluid from ostomy over course of day, also gas. Minimal intermittent abdominal pain- Objective: Temp Pulse Resp BP Pulse Ox 98.3 F 51 12 96/50 100 08/22/19 09:19 08/22/19 09:19 08/22/19 09:19 08/22/19 09:19 08/22/19 09:19 Intake & Output 08/20/19 08/21/19 08/22/19 08/23/19 06:59 06:59 06:59 06:59 Intake Total 2975 989 Output Total 875 175 Balance 2100 814 Weight 114 lb 8 oz Intake: IV Fluids 2975 989 NS 1975 989 Output: Urine 175 175 Ileostomy 700 Other: Estimated Void Large Estimated Stool Amount Small # Voids 2 PEX: Comfortable Lungs are clear Abd is softer but remains distended. Incision CDI. Ostomy pink with small amount of air and some bilious fluid in bag Mild tenderness, no rebound or guarding. Laboratory Last Values WBC 5.4 10^3/uL (3.5-10.8) 08/22/19 06:05 RBC 4.04 10^6 /uL (4.18-5.48) L 08/22/19 06:05 Hgb 12.3 g/dL (14.0-18.0) L 08/22/19 06:05 Hct 37 % (42-52) L 08/22/19 06:05 MCV 90 fL (80-94) 08/22/19 06:05 MCH 30 pg (27-31) 08/22/19 06:05 MCHC 34 g/dL (31-36) 08/22/19 06:05 RDW 13 % (10-15) 08/22/19 06:05 Plt Count 461 10^3/uL (150-450) H D 08/22/19 06:05 MPV 7.1 fL (7.4-10.4) L 08/22/19 06:05 Neut % (Auto) 60.0 % 08/22/19 06:05 Lymph % (Auto) 24.5 % 08/22/19 06:05 [place] % (Auto) 13.3 % 08/22/19 06:05 Eos % (Auto) 1.6 % 08/22/19 06:05 Baso % (Auto) 0.6 % 08/22/19 06:05 Absolute Neuts (auto) 3.3 10^3/ul (1.5-7.7) 08/22/19 06:05 Absolute Lymphs (auto) 1.3 10^3/ul (1.0-4.8) 08/22/19 06:05 Absolute Monos (auto) 0.7 10^3/ul (0-0.8) 08/22/19 06:05 Absolute Eos (auto) 0.1 10^3/ul (0-0.6) 08/22/19 06:05 Absolute Basos (auto) 0.0 10^3/ul (0-0.2) 08/22/19 06:05 Absolute Nucleated RBC 0.0 10^3/ul 08/22/19 06:05 Nucleated RBC % 0.1 08/22/19 06:05 Sodium 135 mmol/L (135-145) 08/22/19 06:05 Potassium 4.3 mmol/L (3.5-5.0) 08/22/19 06:05 Chloride 107 mmol/L (101-111) 08/22/19 06:05 Carbon Dioxide 21 mmol/L (22-32) L 08/22/19 06:05 Anion Gap 7 mmol/L (2-11) 08/22/19 06:05 BUN 16 mg/dL (6-24) 08/22/19 06:05 Creatinine 0.85 mg/dL (0.67-1.17) 08/22/19 06:05 Est GFR ( Amer) 139.0 (>60) 08/22/19 06:05 Est GFR (Non-Af Amer) 114.9 (>60) 08/22/19 06:05 BUN/Creatinine Ratio 18.8 (8-20) 08/22/19 06:05 Glucose 80 mg/dL (70-100) 08/22/19 06:05 Calcium 8.6 mg/dL (8.6-10.3) 08/22/19 06:05 Total Bilirubin 1.40 mg/dL (0.2-1.0) H 08/21/19 11:38 AST 25 U/L (13-39) 08/21/19 11:38 ALT 68 U/L (7-52) H 08/21/19 11:38 Alkaline Phosphatase 77 U/L (34-104) 08/21/19 11:38 C-Reactive Protein 1.10 mg/L (<8.01) 08/21/19 11:38 Total Protein 8.9 g/dL (6.4-8.9) 08/21/19 11:38 Albumin 5.6 g/dL (3.2-5.2) H 08/21/19 11:38 Globulin 3.3 g/dL (2-4) 08/21/19 11:38 Albumin/Globulin Ratio 1.7 (1-3) 08/21/19 11:38 Lipase < 10 U/L (11.0-82.0) L 08/21/19 11:38 Assessment: POD# 15 s/p sigmoid colectomy with diverting loop ileostomy for sigmoid volvulus Re-admitted with abdominal distension and nausea--?? ileus, does not appear to be mechanical obstruction Afebrile, normal WBC Renal function improving with hydration Some bilious fluid out of ileostomy Malnutrition Plan: PICC line and TPN today IVF Ice chips po PPI CT scan later today-rule out mechanical obstruction, any other post-op changes Reconsult GI for opinion regarding ?? persistent and intermittent ileus Recheck labs in AM All discussed with father.
[2019-08-22] MEDS ORDERED: TPN* 24 HR with Dextrose 50% Water* 500 ML, Amino Acid Infusion 10%* 850 ML, Sterile Wa... CENTR SCH ×12 (17:00)
[2019-08-22] MEDS ORDERED: Iohexol 300* (CONTRAST) 10 ML SDV IV ONE (17:02)
[2019-08-22 18:55] LABS: Albumin/Globulin Ratio 1.9 (1-3); BUN/Creatinine Ratio 20.3 (8-20); Calcium 8.8 mg/dL (8.6-10.3); EGFR African American 151.3 (>60); Globulin 2.1 g/dL (2-4); Magnesium 1.7 mg/dL (1.9-2.7); Phosphorus 2.9 mg/dL (2.5-5.0); Total Bilirubin 2.3 mg/dL (0.2-1.0); Total Protein 6.1 g/dL (6.4-8.9)
[2019-08-23] MEDS: NS 0.9% 1000 ML** 1,000 ML IV SCH (05:36)
[2019-08-23 05:55] LABS: Albumin 3.8 g/dL (3.2-5.2); Albumin/Globulin Ratio 1.7 (1-3); BUN/Creatinine Ratio 21.4 (8-20); Calcium 8.7 mg/dL (8.6-10.3); EGFR Non-African American 143.8 (>60); Globulin 2.2 g/dL (2-4); Magnesium 1.7 mg/dL (1.9-2.7); Phosphorus 2.9 mg/dL (2.5-5.0); Potassium 4.1 mmol/L (3.5-5.0)
[2019-08-23] MEDS: Ketorolac INJ* 30 MG/ML 1 ML VIAL IV PRN (08:04)
[2019-08-23] MEDS ORDERED: NS 0.9% 1000 ML** 1,000 ML IV SCH (09:57)
--- NOTE | 2019-08-23 13:51 | PN ---
Progress Note - Progress Note Date of Service: 08/23/19 SOAP: Subjective: Continues to feel better No N/V and minimal pain Small to moderate amounts of bilious fluid and gas in bag Ambulating in halls Objective: Temp Pulse Resp BP Pulse Ox 97.6 F 54 18 87/46 100 08/23/19 12:14 08/23/19 12:14 08/23/19 12:14 08/23/19 12:14 08/23/19 12:14 Intake & Output 08/21/19 08/22/19 08/23/19 08/24/19 06:59 06:59 06:59 06:59 Intake Total 2975 3917 843 Output Total 1830 4005 Balance 1145 -88 843 Weight 114 lb 8 oz 114 lb Intake: IV Fluids 2975 3867 NS 1975 3867 IVPB 843 NS 843 Oral 50 Output: Urine 1130 2805 Ileostomy 700 1200 Other: Estimated Void Large Estimated Stool Amount Small # Voids 2 PEX: Comfortable Lungs are clear Abd is soft and much less distended. Bowel sounds present, less active, not high pitched or tinkling. Incision CDI Ostomy pink with thicker bilious fluid in bag Bridge removed Laboratory Results - last 24 hr 08/22/19 08/22/19 08/23/19 18:30 23:20 03:30 Sodium 133 L Potassium 4.0 Chloride 104 Carbon Dioxide 20 L Anion Gap 9 BUN 16 Creatinine 0.79 Est GFR ( Amer) 151.3 Est GFR (Non-Af Amer) 125.0 BUN/Creatinine Ratio 20.3 H Glucose 92 POC Glucose (mg/dL) 150 H 123 H Calcium 8.8 Phosphorus 2.9 Magnesium 1.7 L Total Bilirubin 2.30 H AST 13 ALT 34 Alkaline Phosphatase 55 Total Protein 6.1 L Albumin 4.0 Globulin 2.1 Albumin/Globulin Ratio 1.9 Prealbumin 21 Triglycerides 84 Cholesterol 136 08/23/19 08/23/19 05:19 12:14 Sodium 133 L Potassium 4.1 Chloride 105 Carbon Dioxide 23 Anion Gap 5 BUN 15 Creatinine 0.70 Est GFR ( Amer) 174.0 Est GFR (Non-Af Amer) 143.8 BUN/Creatinine Ratio 21.4 H Glucose 98 POC Glucose (mg/dL) 117 H Calcium 8.7 Phosphorus 2.9 Magnesium 1.7 L Total Bilirubin 2.00 H AST 13 ALT 31 Alkaline Phosphatase 53 Total Protein 6.0 L Albumin 3.8 Globulin 2.2 Albumin/Globulin Ratio 1.7 Prealbumin 21 Triglycerides [address] reviewed with radiology-dilated small bowel to ostomy, no transition point or obvious obstruction. Some free fluid in pelvis, no abscess, free air Assessment: S/P sigmoid colon resection with diverting loop ileostomy for sigmoid volvulus Ileus-recurrent--? etiology-no evidence of mechanical obstruction or abscess Plan: TPN GI consult-discussed with Dr. Elver Robledo Sips of clears Ostomy care No subq heparin-he is ambulating regularly. CT results and care discussed with both parents Dr. aY covering this weekend.
--- NOTE | 2019-08-23 14:55 | CONS ---
CONSULTATION REPORT: DATE OF CONSULT: 08/23/19 REQUESTING PHYSICIAN: Dr. Jones. INDICATION: Ileus. NARRATIVE: Mr. Redman is a pleasant 19-year-old male, well known to the GI service. Dr. Alejo is his outpatient c application developer. 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 He was discharged from the hospital approximately 4 days ago. He did have an extended hospitalization post surgical recovery due to an ileus. The patient went home and his abdomen slowly became more distended. He also felt that his ostomy output was decreasing as the size of his abdomen was increasing and he presented back to the emergency room, had a repeat CT which showed either a small bowel obstruction versus an ileus. He was admitted few days ago. Today, he states that he is feeling better. He is up and ambulatory. He states that his abdomen is much less distended. He is tolerating clears. He is on TPN. He states he feels markedly better than when he first came in. No nausea, no vomiting. PAST MEDICAL HISTORY: Significant for Asperger's, asthma, and GERD. PAST SURGICAL HISTORY: Includes sigmoid colectomy. MEDICATIONS UPON ADMISSION: None. ALLERGIES: None. FAMILY HISTORY: No family history of any gastrointestinal diseases. SOCIAL HISTORY: No tobacco or alcohol. REVIEW OF SYSTEMS: Twelve systems were reviewed and other than that mentioned in the HPI were unremarkable. PHYSICAL EXAM: Temperature is 97.6, blood pressure is 87/46, pulse is 54, respiratory rate of 18, O2 sat is 100%. General: Well-appearing male, in no apparent distress, alert, oriented, pleasant, fluent. HEENT: Mucous membranes are moist without lesions, ulcers, or exudate. Neck is supple. Trachea is midline. Head is normocephalic, atraumatic. Heart: Regular rate and rhythm. No murmurs, rubs, or gallops. Lungs: Clear to auscultation bilaterally. No wheezes, rales, or rhonchi. Abdomen is flat. Positive bowel sounds. Soft. Stoma is beefy red. There is liquid and gas in the bag. Nontender throughout. DIAGNOSTIC STUDIES/LAB DATA: Of note, hemoglobin is 12.3, white count is 5.4, platelets of 461. Total bilirubin is 2. CT abdomen and pelvis from yesterday revealed surgical resection of the sigmoid colon, dilated small bowel loops suggestive of partial obstruction versus ileus with interval improvement. ASSESSMENT AND PLAN: A very pleasant 19-year-old gentleman status post surgery , sigmoid colectomy for sigmoid volvulus, who has had a very long postoperative recovery. He was able to go home; however, returned a few days later with what appears to be an ileus. There does not appear to be any mechanical or fixed obstruction. He did have a barium study a few days ago, which showed a possible narrowing of the anastomosis. At this point, he is seemingly improving. If he continues to improve, I do not think we need to pursue another barium study; however, if he takes a turn for the worse, we could repeat that to reevaluate the anastomosis. Otherwise, given the fact that he is improving at this point, I would not make any other changes other than continuing TPN, fluids, and slow dietary advancement. I do believe that most of this will resolve over time. We will continue to follow along. >45 min spent with pt and mother [id number]/[facility] #: [id number] DIEGO
[2019-08-23] MEDS: TPN* 24 HR with Dextrose 50% Water* 500 ML, Amino Acid Infusion 10%* 850 ML, Sterile Wa... CENTR SCH ×12 (17:00)
[2019-08-23] MEDS: Famotidine IV* 10 MG/ML 2 ML (20 mg) IV SLOW PU SCH (21:36)
[2019-08-24 05:37] LABS: Albumin 3.6 g/dL (3.2-5.2); Albumin/Globulin Ratio 1.7 (1-3); BUN/Creatinine Ratio 20.6 (8-20); Calcium 8.9 mg/dL (8.6-10.3); EGFR African American 179.9 (>60); EGFR Non-African American 148.7 (>60); Globulin 2.1 g/dL (2-4); Phosphorus 3.6 mg/dL (2.5-5.0); Potassium 4.2 mmol/L (3.5-5.0); Total Bilirubin 0.7 mg/dL (0.2-1.0); Total Protein 5.7 g/dL (6.4-8.9)
[2019-08-24] MEDS: Famotidine IV* 10 MG/ML 2 ML (20 mg) IV SLOW PU SCH ×2 (08:16→21:25)
[2019-08-24] MEDS: Lactobacillus Acidophilus* 1 TAB PO SCH (09:33)
[2019-08-24 10:40] LABS: Albumin 3.7 g/dL (3.2-5.2); Albumin/Globulin Ratio 1.5 (1-3); BUN/Creatinine Ratio 20.8 (8-20); EGFR African American 168.4 (>60); EGFR Non-African American 139.2 (>60); Globulin 2.4 g/dL (2-4); Phosphorus 3.2 mg/dL (2.5-5.0); Potassium 4.3 mmol/L (3.5-5.0); Total Bilirubin 0.7 mg/dL (0.2-1.0); Total Protein 6.1 g/dL (6.4-8.9)
--- NOTE | 2019-08-24 12:53 | PN ---
Progress Note - Progress Note Date of Service: 08/24/19 SOAP: Subjective: pt seen and examined. Feeling well. no nausea, no appetite. Objective: Temp Pulse Resp BP Pulse Ox 98.6 F 50 16 82/45 100 08/24/19 11:50 08/24/19 11:50 08/24/19 11:50 08/24/19 11:50 08/24/19 11:50 a and o x3, nad lungs clear abdo: soft/ ND/ NT incision intact with some minimal dehiscence superiorly, minimal BS stoma : pink intact, positive output ext wnl labs noted Assessment: s/p segmental colectomy, protective ileostomy, ileus resolving Plan: tpn d/c ivf OOB Gi proph clears
[2019-08-24] MEDS ORDERED: NS 0.9% 1000 ML** 1,000 ML IV ONE (16:45)
[2019-08-24] MEDS: TPN* 24 HR with Dextrose 50% Water* 500 ML, Amino Acid Infusion 10%* 850 ML, Sterile Wa... CENTR SCH ×12 (16:59)
[2019-08-25 05:49] LABS: BUN/Creatinine Ratio 19.4 (8-20); Calcium 9.4 mg/dL (8.6-10.3); EGFR African American 168.4 (>60); EGFR Non-African American 139.2 (>60); Potassium 4.2 mmol/L (3.5-5.0)
[2019-08-25] MEDS: Lactobacillus Acidophilus* 1 TAB PO SCH (08:59)
[2019-08-25] MEDS: Famotidine IV* 10 MG/ML 2 ML (20 mg) IV SLOW PU SCH ×2 (08:59→21:18)
--- NOTE | 2019-08-25 11:14 | PN ---
Progress Note - Progress Note Date of Service: 08/25/19 SOAP: Subjective: pt seen and examined. Feeling well. no nausea, some appetite BP low and received bolus Objective: Temp Pulse Resp BP Pulse Ox 97.4 F 63 16 96/62 100 08/25/19 09:08 08/25/19 09:08 08/25/19 09:08 08/25/19 09:08 08/25/19 09:08 a and o x3, nad lungs clear abdo: soft/ ND/ NT stoma : pink intact, positive output ext wnl labs noted Assessment: s/p segmental colectomy, protective ileostomy, ileus resolving Plan: tpn d/c ivf OOB Gi proph clears
[2019-08-25] MEDS: TPN* 24 HR with Dextrose 50% Water* 500 ML, Amino Acid Infusion 10%* 850 ML, Sterile Wa... CENTR SCH ×12 (17:04)
[2019-08-26] MEDS: Acetaminophen TAB* 325 MG PO PRN ×2 (04:21→15:40)
[2019-08-26] MEDS: Ondansetron INJ* 2 MG/ML VIAL IV PRN (04:22)
[2019-08-26 05:09] LABS: BUN/Creatinine Ratio 22.5 (8-20); EGFR African American 131.9 (>60); Potassium 4.2 mmol/L (3.5-5.0)
[2019-08-26] MEDS: Famotidine IV* 10 MG/ML 2 ML (20 mg) IV SLOW PU SCH ×2 (08:28→20:56)
[2019-08-26] MEDS: Lactobacillus Acidophilus* 1 TAB PO SCH (08:28)
[2019-08-26] MEDS: TPN* 24 HR with Dextrose 50% Water* 500 ML, Amino Acid Infusion 10%* 850 ML, Sterile Wa... CENTR SCH ×12 (17:10)
--- NOTE | 2019-08-26 17:41 | PN ---
Progress Note - Progress Note Date of Service: 08/26/19 Note: asked to come back to see pt; mom in room with pt noted increased abd distention mid afternoon with pain, gas in bag; was fine earlier; 2 episodes of this today, then resolves mom very concerned, no n/v; no fevers; only eating ice chips and jello; only drank 32 oz free water; ambulating, no narcs VS; 98.8, 101/60, 68 nad high pitched bs, softly distended, gas and liquid stool in bag, mild diffuse tenderness no labs since08/22 intermittent small bowel distention.....no clear etiology (does not appear obstructive); ??history of this in past; seems to be less frequent than before; pt seems to be improving, BUT not as fast as family wants; have recommend increasing fluids, advancing diet, 1/2 dose glycolax to try to stimulate bowel fxn; GI will see pt tomorrow 1 hr and 08 min spent with pt/mom/other providers Vel Raya MD [facility]
--- NOTE | 2019-08-26 17:45 | PN ---
Progress Note - Progress Note Date of Service: 08/26/19 SOAP: Subjective: Patient initially seen at 0830 this morning and again just now He had some abdominal distension early this morning but then large amount of fluid and gas in ostomy this morning and now feels better, but feeling a little bloating now, no N/V. Ambulating, tolerating liquids. Objective: Temp Pulse Resp BP Pulse Ox 98.8 F 68 28 101/60 100 08/26/19 15:42 08/26/19 15:42 08/26/19 15:42 08/26/19 15:42 08/26/19 15:42 Intake & Output 08/24/19 08/25/19 08/26/19 08/27/19 06:59 06:59 06:59 06:59 Intake Total 3071 4354 3810 960 Output Total 1020 5705 4370 2020 Balance 2050 -1351 -560 -1060 Intake: IV Fluids 980 NS 980 IVPB 843 NS 843 TPN/PPN 1753 1814 1840 Oral 475 1560 1970 960 Output: Urine 500 4630 2770 620 Ileostomy 520 1075 1600 1400 Other: Estimated Void Medium Estimated Stool Amount Small PEX: Comfortable Lungs are clear Abd is soft and slightly distended. Gas in ostomy bag with small amount of thin bilious fluid. Ostomy is pink--no prolapse. Bowel sounds are decreased. Ext without edema Laboratory Results - last 24 hr 08/25/19 08/26/19 08/26/19 21:17 04:38 11:41 Sodium 134 L Potassium 4.2 Chloride 104 Carbon Dioxide 23 Anion Gap 7 BUN 20 Creatinine 0.89 Est GFR ( Amer) 131.9 Est GFR (Non-Af Amer) 109.0 BUN/Creatinine Ratio 22.5 H Glucose 96 POC Glucose (mg/dL) 94 120 H Calcium 10.0 Assessment: POD# 19 s/p sigmoid colectomy with diverting ileostomy for sigmoid volvulus Ileus-intermittent--?? dysmotility-no obvious evidence of obstruction or ostomy problem (appears patent and can easily pas catheter into proximal limb) or abscess. Will continue to give more time for recovery Plan: TPN Continue to advance diet as tolerated--fulls tomorrow Pepcid Swallowing evaluation --aerophagia? Appreciate Dr. Raya's assistance All discussed with both parents at bedside tonight
[2019-08-27 06:48] LABS: Albumin 4.2 g/dL (3.2-5.2); Albumin/Globulin Ratio 1.7 (1-3); BUN/Creatinine Ratio 25.3 (8-20); Calcium 9.4 mg/dL (8.6-10.3); EGFR African American 151.3 (>60); Globulin 2.5 g/dL (2-4); Magnesium 1.9 mg/dL (1.9-2.7); Phosphorus 3.7 mg/dL (2.5-5.0); Potassium 4.2 mmol/L (3.5-5.0); Total Bilirubin 1.1 mg/dL (0.2-1.0); Total Protein 6.7 g/dL (6.4-8.9)
--- NOTE | 2019-08-27 08:24 | PN ---
Progress Note - Progress Note Date of Service: 08/27/19 SOAP: Subjective: Slept well last night Little to no output from ostomy however Had some pain earlier in evening, resolved quickly No nausea Objective: Temp Pulse Resp BP Pulse Ox 97.3 F 60 16 100/68 100 08/26/19 22:48 08/26/19 22:48 08/26/19 22:48 08/26/19 22:48 08/26/19 22:48 Intake & Output 08/25/19 08/26/19 08/27/19 08/28/19 06:59 06:59 06:59 06:59 Intake Total 4354 3810 1520 Output Total 5705 4370 3010 Balance -9004 -807 -1143 Intake: IV Fluids 980 NS 980 TPN/PPN 1814 1840 Oral 1560 1970 1520 Output: Urine 4630 2770 1610 Ileostomy 1075 1600 1400 Other: Estimated Void Medium Estimated Stool Amount Small PEX Comfortable Lungs are clear Abd is soft and distended-mainly upper abdomen. Tympanitic, decreased bowel sounds present. Ostomy pink, no fluid or air in bag. Ext without edema Laboratory Results - last 24 hr 08/25/19 08/26/19 08/27/19 21:17 11:41 06:13 Sodium 135 Potassium 4.2 Chloride 105 Carbon Dioxide 24 Anion Gap 6 BUN 20 Creatinine 0.79 Est GFR ( Amer) 151.3 Est GFR (Non-Af Amer) 125.0 BUN/Creatinine Ratio 25.3 H Glucose 89 POC Glucose (mg/dL) 94 120 H Calcium 9.4 Phosphorus 3.7 Magnesium 1.9 Total Bilirubin 1.10 H AST 30 ALT 49 Alkaline Phosphatase 70 Total Protein 6.7 Albumin 4.2 Globulin 2.5 Albumin/Globulin Ratio 1.7 Prealbumin 28 Triglycerides 46 Cholesterol 119 Assessment: S/P sigmoid colectomy, diverting ileostomy Ileus Labs reviewed Plan: Advance diet Swallowing evaluation today TPN Care discussed with patient and parents
[2019-08-27] MEDS: Acetaminophen TAB* 325 MG PO PRN (10:53)
[2019-08-27] MEDS: Lactobacillus Acidophilus* 1 TAB PO SCH (10:54)
[2019-08-27] MEDS: Famotidine IV* 10 MG/ML 2 ML (20 mg) IV SLOW PU SCH ×2 (10:54→21:28)
[2019-08-27] MEDS: Ondansetron INJ* 2 MG/ML VIAL IV PRN (12:10)
[2019-08-27] MEDS: TPN* 24 HR with Dextrose 50% Water* 500 ML, Amino Acid Infusion 10%* 850 ML, Sterile Wa... CENTR SCH ×12 (17:08)
[2019-08-28] MEDS: Lactobacillus Acidophilus* 1 TAB PO SCH (10:41)
[2019-08-28] MEDS: Famotidine IV* 10 MG/ML 2 ML (20 mg) IV SLOW PU SCH ×2 (10:41→21:26)
--- NOTE | 2019-08-28 10:44 | PN ---
Progress Note - Progress Note Date of Service: 08/28/19 SOAP: Subjective: Patient initially seen at 0815 and in radiology suite for procedure Some crampy pain last night Continues to tolerate small amount of liquids with intermittent output from ileostomy Objective: Temp Pulse Resp BP Pulse Ox 98.1 F 61 16 92/56 100 08/28/19 10:37 08/28/19 10:37 08/28/19 10:37 08/28/19 10:37 08/28/19 10:37 Intake & Output 08/26/19 08/27/19 08/28/19 08/29/19 06:59 06:59 06:59 06:59 Intake Total 3810 1520 3516 Output Total 4370 3390 3050 280 Balance -560 -1870 466 -280 Intake: TPN/PPN 1840 1836 Oral 1970 1520 1680 Output: Urine 2770 1990 1800 280 Ileostomy 1600 1400 1250 PEX: Comfortable LUngs are clear Cor is RRR Abd is distended and tympanitic--few bowel sounds present. Ostomy pink with some bilious fluid in bag Ext without edema No labs today Assessment: S/P colectomy-ileostomy for sigmoid volulus Ileus BE this AM shows no leak, widely patent- Gastrograffin through ostomy shows no obstruction Results reviewed with mother Plan: Continue TPN Advance diet to regular GI to see No mechanical obstruction noted, sigmoid anastomosis widely patent.
[2019-08-28] MEDS: TPN* 24 HR with Dextrose 50% Water* 500 ML, Amino Acid Infusion 10%* 850 ML, Sterile Wa... CENTR SCH ×12 (16:51)
--- NOTE | 2019-08-28 19:32 | PN ---
Progress Note - Progress Note Date of Service: 08/28/19 Note: GI FOLLOW-UP S/IE: - Additional imaging demonstrates small bowel ileus. No strictures. - Ambulating frequently. - Small amounts of liquid and increased gas in ostomy bag. Mild/mod distention without significant discomfort. - Tolerated some clears (soups). O: VSS Gen: Comfortable gentleman. Minimally responsive. NAD. Pulm: Breathing comfortably. ABD: Hypoactive BS. Softly distended abdomen. Non-tender. Ostomy w/ pink stoma. Small amount of yellow-green liquid. Significant gas in ostomy bag. No labs today. Barium enema and antegrade study of ileum w/ gastrografin w/ dilated small bowel. No stricture at anastomosis or ostomy. A/P: 19yM w/ sigmoid volvulus s/p sigmoid colectomy w/ primary anastomosis and diverting ileostomy. Post-operative course complicated by slow recovery and post -operative ileus requiring re-admission and TPN. Patient may have underlying intestinal dysmotility, although he has not had significant GI symptoms at baseline. Some slow improvement noted. Tolerating some clears. Distention is less severe and uncomfortable. Spent >20 minutes with patient and mother. Reviewed that post -operative ileus can be quite slow to recover. No specific medical therapy is supported by evidence. Could consider trial of Reglan if symptoms persist given possibility of underlying dysmotility. However, I would hesitate to start this now as there has been some clinical improvement. - Continue full liquid diet. Slowly advance as tolerating more po intake. - Continue frequent ambulation - Continue to minimize/avoid narcotics - Can trial gum chewing - Continue to monitor BMP + Mg/phos to ensure electrolytes remain optimized - Continue TPN for now. Eva Alejo MD Gastroenterology
[2019-08-28] MEDS: Acetaminophen TAB* 325 MG PO PRN (21:32)
[2019-08-29] MEDS: Lactobacillus Acidophilus* 1 TAB PO SCH (09:40)
[2019-08-29] MEDS: Famotidine IV* 10 MG/ML 2 ML (20 mg) IV SLOW PU SCH ×2 (09:40→21:18)
--- NOTE | 2019-08-29 10:36 | PN ---
Progress Note - Progress Note Date of Service: 08/29/19 SOAP: Subjective: Nad Ambulating well in halls Tolerating liquid diet [] Objective: Vital Signs Temp 98.7 F 08/29/19 08:29 Pulse 60 08/29/19 08:29 Resp 16 08/29/19 08:29 BP 96/47 08/29/19 09:47 Pulse Ox 99 08/29/19 08:29 Intake & Output 08/28/19 08/29/19 08/29/19 18:59 06:59 18:59 Intake Total 2608 1500 Output Total 1455 3410 150 Balance 1153 -1910 -150 Intake: TPN/PPN 1798 Oral 810 1500 Output: Urine 630 3010 Ileostomy 825 400 150 PEX Chest: CTAB CVS: RRR Abd: soft, ileostomy stoma pink and healthy, Ext: calves soft non tender [] From GI Note 08/28/2019 19yM w/ sigmoid volvulus s/p sigmoid colectomy w/ primary anastomosis and diverting ileostomy. Post-operative course complicated by slow recovery and post -operative ileus requiring re-admission and TPN. Patient may have underlying intestinal dysmotility, although he has not had significant GI symptoms at baseline. Some slow improvement noted. Tolerating some clears. Distention is less severe and uncomfortable. Spent >20 minutes with patient and mother. Reviewed that post -operative ileus can be quite slow to recover. No specific medical therapy is supported by evidence. Could consider trial of Reglan if symptoms persist given possibility of underlying dysmotility. However, I would hesitate to start this now as there has been some clinical improvement. - Continue full liquid diet. Slowly advance as tolerating more po intake. - Continue frequent ambulation - Continue to minimize/avoid narcotics - Can trial gum chewing - Continue to monitor BMP + Mg/phos to ensure electrolytes remain optimized - Continue TPN for now. Eva Alejo MD Gastroenterology Assessment: 19 yo male S/P Sigmoid Colectomy-Ileostomy for sigmoid volvulus and post operative ileus. On TPN, BE 08/28/2019 showed no leak, Gastrografen through ostomy showed no obstruction. [] Plan: Surgery plan was for diet as tolerated, Father today reports desire to continue with liquids. Continue TPN TPN labs Twice weekly per protocol. Will need ileostomy reversal in the future. D/W Dr Jones
[2019-08-29] MEDS: TPN* 24 HR with Dextrose 50% Water* 500 ML, Amino Acid Infusion 10%* 850 ML, Sterile Wa... CENTR SCH ×12 (17:20)
--- NOTE | 2019-08-29 18:29 | PN ---
Progress Note - Progress Note Date of Service: 08/29/19 Note: GI Follow up Note: patient seen and examined. no complaints. ambulating well, eating well. Good output VS: 93/52, P-73, R-16, T-97.5 100% ra Gen: alert and oriented, nad HEENT: AT/NC, perrla, eomi, no jvp Abd: soft, ostomy pink/patent good output, bs+, non tender Impression Volvulus s/p sig resection complicated by ileus Rec: Continue ambulation, gum chewing. Diet per surgery but reasonable to advance Kartik Chase DO 08/29/19 1532
[2019-08-30 06:40] LABS: Albumin 3.8 g/dL (3.2-5.2); Albumin/Globulin Ratio 1.7 (1-3); BUN/Creatinine Ratio 28.8 (8-20); Calcium 9.1 mg/dL (8.6-10.3); EGFR African American 165.7 (>60); Globulin 2.2 g/dL (2-4); Magnesium 1.9 mg/dL (1.9-2.7); Phosphorus 4.2 mg/dL (2.5-5.0); Potassium 4.1 mmol/L (3.5-5.0); Total Bilirubin 0.8 mg/dL (0.2-1.0)
[2019-08-30] MEDS: Lactobacillus Acidophilus* 1 TAB PO SCH (09:02)
[2019-08-30] MEDS: Famotidine IV* 10 MG/ML 2 ML (20 mg) IV SLOW PU SCH ×2 (09:02→21:13)
--- NOTE | 2019-08-30 11:18 | PN ---
Progress Note - Progress Note Date of Service: 08/30/19 SOAP: Subjective: Did well overnight-no abdominal pain or nausea-- Tolerating clears and some soft diet Large amount of gas in bag--little fluid however He says he feels much less distended. Objective: Temp Pulse Resp BP Pulse Ox 97.6 F 60 16 98/56 100 08/30/19 08:59 08/30/19 08:59 08/30/19 08:59 08/30/19 08:59 08/30/19 08:59 Intake & Output 08/28/19 08/29/19 08/30/19 08/31/19 06:59 06:59 06:59 06:59 Intake Total 3516 4108 3808 Output Total 3059 8854 4532 Balance 231 -482 -551 Weight 116 lb 3.2 oz Intake: TPN/PPN 1836 1798 1858 Oral 1680 2310 1950 Output: Urine 1800 3640 3975 Ileostomy 1250 1225 550 PEX: Comfortable Lungs are clear Cor is RRR Abd is softer and much less distended. Bowel sounds are present and more normoactive, no discomfort, Ostomy pink with small amount of fluid in bag Ext without edema Laboratory Results - last 24 hr 08/30/19 06:05 Sodium 136 Potassium 4.1 Chloride 107 Carbon Dioxide 26 Anion Gap 3 BUN 21 Creatinine 0.73 Est GFR ( Amer) 165.7 Est GFR (Non-Af Amer) 137.0 BUN/Creatinine Ratio 28.8 H Glucose 80 Calcium 9.1 Phosphorus 4.2 Magnesium 1.9 Total Bilirubin 0.80 AST 16 ALT 26 Alkaline Phosphatase 67 Total Protein 6.0 L Albumin 3.8 Globulin 2.2 Albumin/Globulin Ratio 1.7 Prealbumin 26 Triglycerides 35 Cholesterol 103 Path review shows no evidence of Hirschsprung's disease Assessment: S/P sigmoid colon resection with diverting ileostomy for sigmoid volvulus Ileus-appears to be slowly improving Plan: Labs reviewed-supplement Mg+ Continue TPN through weekend Diet as tolerated-trying more soft foods Ostomy care All care discussed with patient's mother--will continue TPN through weekend and hopefully increase diet over the next few days.
[2019-08-30] MEDS ORDERED: Magnesium Sulfate 2 GM IV (Premix) IVPB ONE (12:00)
[2019-08-30] MEDS: TPN* 24 HR with Dextrose 50% Water* 500 ML, Amino Acid Infusion 10%* 850 ML, Sterile Wa... CENTR SCH ×12 (17:48)
--- NOTE | 2019-08-31 08:43 | PN ---
Progress Note - Progress Note Date of Service: 08/31/19 SOAP: Subjective: Awake and alert. Father does most of the talking and answers questions. Wonders about the fact patient swallowed gum. Objective: Vital Signs Temp 97.9 F 08/30/19 23:38 Pulse 62 08/30/19 23:38 Resp 14 08/30/19 23:38 BP 99/52 08/30/19 23:38 Pulse Ox 100 08/30/19 23:38 Gen: NAD, lying in bed. Abd: ostomy pink; ND; soft; NT; incision c/d/i; no erythema Intake & Output 08/30/19 08/31/19 08/31/19 18:59 06:59 18:59 Intake Total 3544 1125 Output Total 4700 1985 Balance -1156 860 Intake: TPN/PPN 1854 Oral 1690 1125 Output: Urine 4400 1310 Ileostomy 300 675 Other: Estimated Stool Amount Small Active Medications Generic Name Dose Route Start Last Admin Trade Name Freq PRN Reason Stop Dose Admin Acetaminophen 650 mg 08/21/19 13:30 Tylenol 650 Mg Supp ME Q4H PRN mild pain if unable to take po Acetaminophen 650 mg 08/21/19 13:19 08/28/19 21:32 Tylenol Tab* PO 650 mg Q4H PRN Administration MILD PAIN or TEMP > 100.4 Famotidine 20 mg 08/23/19 21:00 08/30/19 21:13 Pepcid Iv* IV SLOW PU 20 mg BID CRISTIN Administration Heparin Sodium (Porcine) 1 ml 08/22/19 18:00 08/31/19 06:03 Heparin Flush Picc/Ml/Cvc(*) FLUSH 1 ml 0600,1800 CRISTIN Administration Protocol Dextrose 500 ml/ Amino Acids 1,858.1841 mls @ 77.424 mls/hr 08/23/19 17:00 17:48 850 ml/ Sterile Water 150 ml/ CENTR 77.424 mls/hr Fat Emulsion Intravenous 250 1700 CRISTIN Administration ml/ Sodium Chloride 120 meq/ Potassium Chloride 50 meq/ Potassium Phosphate 15 mmole/ Calcium Gluconate 15 meq/ Magnesium Sulfate 20 meq/ Multivitamins 10 ml/ Trace Metals 1 ml/ Nutrition ( Parenteral) Lactobacillus Rhamnosus 1 tab 08/24/19 09:00 08/30/19 09:02 Lactobacillus Acidophilus* PO 1 tab DAILY CRISTIN Administration Ondansetron HCl 4 mg 08/21/19 13:19 08/27/19 12:10 Zofran Inj* IV 4 mg Q4H PRN Administration NAUSEA/VOMITING Assessment: Stable. S/P sigmoid colon resection with diverting ileostomy for sigmoid volvulus Ileus-appears to be slowly improving Plan: Cont TPN. Limit PO intake.
[2019-08-31] MEDS: Lactobacillus Acidophilus* 1 TAB PO SCH (09:15)
[2019-08-31] MEDS: Famotidine IV* 10 MG/ML 2 ML (20 mg) IV SLOW PU SCH ×2 (09:15→21:32)
[2019-08-31] MEDS: TPN* 24 HR with Dextrose 50% Water* 500 ML, Amino Acid Infusion 10%* 850 ML, Sterile Wa... CENTR SCH ×12 (17:41)
[2019-09-01] MEDS: Lactobacillus Acidophilus* 1 TAB PO SCH (09:17)
[2019-09-01] MEDS: Famotidine IV* 10 MG/ML 2 ML (20 mg) IV SLOW PU SCH ×2 (09:17→22:19)
--- NOTE | 2019-09-01 10:06 | PN ---
Progress Note - Progress Note Date of Service: 09/01/19 SOAP: Subjective: Reports pain "2/10". Denies N/V. Ostomy has been putting out large amount of gas intermittently. Objective: Vital Signs Temp 98.3 F 09/01/19 07:44 Pulse 61 09/01/19 07:44 Resp 16 09/01/19 07:44 BP 95/48 09/01/19 07:44 Pulse Ox 99 09/01/19 07:44 Gen: sitting up in bed; eating scrambled eggs. Abd: ostomy pink with gas and thin effluent; ND; healing scar. NT. U/O=2 L/8h. ostomy o/b=020ri/24 hr Active Medications Generic Name Dose Route Start Last Admin Trade Name Freq PRN Reason Stop Dose Admin Acetaminophen 650 mg 08/21/19 13:30 Tylenol 650 Mg Supp UT Q4H PRN mild pain if unable to take po Acetaminophen 650 mg 08/21/19 13:19 08/28/19 21:32 Tylenol Tab* PO 650 mg Q4H PRN Administration MILD PAIN or TEMP > 100.4 Famotidine 20 mg 08/23/19 21:00 09/01/19 09:17 Pepcid Iv* IV SLOW PU 20 mg BID CRISTIN Administration Heparin Sodium (Porcine) 1 ml 08/22/19 18:00 09/01/19 09:22 Heparin Flush Picc/Ml/Cvc(*) FLUSH 1 ml 0600,1800 CRISTIN Administration Protocol Dextrose 500 ml/ Amino Acids 1,858.1841 mls @ 77.424 mls/hr 08/23/19 17:00 17:41 850 ml/ Sterile Water 150 ml/ CENTR 77.424 mls/hr Fat Emulsion Intravenous 250 1700 CRISTIN Administration ml/ Sodium Chloride 120 meq/ Potassium Chloride 50 meq/ Potassium Phosphate 15 mmole/ Calcium Gluconate 15 meq/ Magnesium Sulfate 20 meq/ Multivitamins 10 ml/ Trace Metals 1 ml/ Nutrition ( Parenteral) Lactobacillus Rhamnosus 1 tab 08/24/19 09:00 09/01/19 09:17 Lactobacillus Acidophilus* PO 1 tab DAILY CRISTIN Administration Ondansetron HCl 4 mg 08/21/19 13:19 08/27/19 12:10 Zofran Inj* IV 4 mg Q4H PRN Administration NAUSEA/VOMITING Assessment: Stable. S/P sigmoid colon resection with diverting ileostomy for sigmoid volvulus Ileus-appears to be improving Plan: Cont current tx. Dr. Jones will f/u in am.
[2019-09-01] MEDS: TPN* 24 HR with Dextrose 50% Water* 500 ML, Amino Acid Infusion 10%* 850 ML, Sterile Wa... CENTR SCH ×12 (17:23)
--- NOTE | 2019-09-02 09:15 | PN ---
Progress Note - Progress Note Date of Service: 09/02/19 SOAP: Subjective: Doing well-having ileostomy output of fluid and gas, occasional distension however No N/V Occasional discomfort Objective: Temp Pulse Resp BP Pulse Ox 99.0 F 60 16 102/55 100 09/01/19 23:12 09/01/19 23:12 09/01/19 23:12 09/01/19 23:12 09/01/19 23:12 Intake & Output 08/31/19 09/01/19 09/02/19 09/03/19 05:59 06:59 06:59 06:59 Intake Total 1750 Output Total 5540 Balance -3790 Weight 113 lb 6.4 oz Intake: TPN/PPN 1750 Oral 0 Output: Urine 4640 Ileostomy 900 Other: Date of Last Bowel 09/01/2019 Movement Estimated Stool Amount # Voids PEX: Comfortable Lungs clear Cor is RRR Abd is soft and non-distended. Bowel sounds present and slightly hyperactive. Incision CDI Ostomy pink with some light brown fluid in bag Ext without edema No labs Assessment: S/P sigmoid colon resection with ileostomy for sigmoid volvulus Ileus-improving Plan: Decrease TPN rate today and then D/C TPN after this bag complete Regular diet as tolerated-he is taking adequate po D/C home tomorrow Care discussed with father at bedside this morning.
[2019-09-02] MEDS: Famotidine IV* 10 MG/ML 2 ML (20 mg) IV SLOW PU SCH (09:17)
[2019-09-02] MEDS: Famotidine TAB* 20 MG PO SCH ×2 (09:18→20:46)
[2019-09-02] MEDS: Lactobacillus Acidophilus* 1 TAB PO SCH (09:18)
[2019-09-03] MEDS: Lactobacillus Acidophilus* 1 TAB PO SCH (08:48)
[2019-09-03] MEDS: Famotidine TAB* 20 MG PO SCH (08:48)
[2019-09-03 08:59] VITALS: BP 102/58
--- NOTE | 2019-09-03 10:13 | PN ---
Progress Note - Progress Note Date of Service: 09/03/19 SOAP: Subjective: NAD tolerating diet [] Objective: Vital Signs Temp 98.6 F 09/03/19 08:59 Pulse 64 09/03/19 08:59 Resp 16 09/03/19 08:59 BP 102/58 09/03/19 08:59 Pulse Ox 100 09/03/19 08:59 Intake & Output 09/02/19 09/03/19 09/03/19 18:59 06:59 18:59 Intake Total 3080 440 Output Total 1200 1720 Balance 1880 -1280 Intake: TPN/PPN 1500 Oral 1580 440 Output: Urine 1200 1420 Ileostomy 300 PEX GEN NAD Chest: CTAB CVS: RRR Abd: soft, non distended, osomy appliance with liquid output Ext: Calves Soft non tender [] Assessment: S/P Sigmoid resection and Ileostomy for Volvulus with post operative ileus requiring TPN, now stopped, on as tolerated diet now [] Plan: Draw TPN lab panel, D/C PICC once lab results complete, Follow up in one week with Dr Jones, TPN Lab Panel to be drawn one day prior to appointment. []
[2019-09-03 10:41] LABS: Albumin/Globulin Ratio 1.7 (1-3); BUN/Creatinine Ratio 21.8 (8-20); Calcium 9.4 mg/dL (8.6-10.3); EGFR African American 135.4 (>60); EGFR Non-African American 111.9 (>60); Globulin 2.3 g/dL (2-4); Magnesium 1.6 mg/dL (1.9-2.7); Phosphorus 3.7 mg/dL (2.5-5.0); Potassium 3.6 mmol/L (3.5-5.0); Total Bilirubin 0.9 mg/dL (0.2-1.0); Total Protein 6.3 g/dL (6.4-8.9)
[2019-09-03] MEDS ORDERED: Magnesium Oxide TAB* 400 MG PO ONE (11:07)
--- NOTE | 2019-09-04 15:37 | DS ---
Discharge Summary Surgeon: Karen HUFFMAN Admit Date: 08/21/2019 Discharge Date:09/03/2019 Admission DX: SBO/Ileus Discharge DX:Ileus Condition at Discharge:Stable Date of D/C PEX: Gen: NAD Chest:CTAB CVS: RRR Abd: soft, non distended, ostomy red, liquid stool in bag Ext: calves soft non tender Procedures Performed:PICC Line, TPN, Barium Enema, Swallow study Hospital Course: 19 yo male who was recently discharged home s/p Sigmoid colectomy for volvulus with ileostomy, was readmitted for possible SBO. He was admitted to the surgical [facility], put on IV Fluids, labs were checked regularly. liquid diet advancing to fulls, kept at fulls by decision of parents. eletrolytes were replaced as needed either via TPN or PO. On HD 2 CT scan done , findings of dilated loops of small bowel suggestive of PSBO or Ileus, improved from prior CT 08/06. HD 3 GI was consulted, thought was ilkeus which was slowly resolving, advsance diet slowly. HD 4 TPN was ordered. HD 5 Swallow study, no swallow problems,don't use straw. HD 8 Barium Enema showing no leak, diet advance was ordered. on 09/01, HD 13 TPN was tapered to 1/2 then d/c 'd. On 09/02 HD 14, Magnesium was replaced, exam was benign, patient was seen by Dr Jones,decision was to discharge home Discharge instructions were given to the patient regarding Diet, Medications, Activity, and post operative Follow up. Case management had arranged Visiting nurses, Ostomy appliances have been oredered. All Questions were answered. Discharged Home in Stable Condition on 09/03/2019
== END 2019-09-03 12:00 | disposition home health service (06) | DRG 394 ==
LOC: ED 10:18 → SSU 13:19
PROVIDERS: ADMIT Surgery; ATTEND Surgery
PROC: 02HV33Z Insertion of Infusion Device into Superior Vena Cava, Percutaneous Approach (ICD-10-PCS; principal; 2019-08-22)
PROC: 3E0436Z Introduction of Nutritional Substance into Central Vein, Percutaneous Approach (ICD-10-PCS; 2019-08-22)
DX: K91.89 Other postprocedural complications and disorders of digestive system (principal); K56.7 Ileus, unspecified; F84.5 Asperger's syndrome; J45.909 Unspecified asthma, uncomplicated; K21.9 Gastro-esophageal reflux disease without esophagitis; L30.9 Dermatitis, unspecified; Y83.8 Other surgical procedures as the cause of abnormal reaction of the patient, or of later complication, without mention of misadventure at the time of the procedure; Y92.9 Unspecified place or not applicable; Z93.2 Ileostomy status; Z90.49 Acquired absence of other specified parts of digestive tract
CPT/HCPCS: 36415; 74019; 74177; 74270; 80048; 80053; 82465; 83690; 83735; 84100; 84134; 84478; 85025; 86140; 99284; A9270-GY; C1751; J1885; J2270; J2405; J3475; J3480; Q9967